=== PATIENT | male | born 1960 | race Caucasian/White ===

== ENCOUNTER → 2017-09-01 12:49 | Outpatient (REF) | payer MEDICAID, SELFPAY ==
[2017-09-01 15:08] LABS: Basophils % 0.4 % (0.1-2.0); Eosinophils # 0.2 K/mm3 (0.0-0.4); Eosinophils % 2.7 % (0.1-12.0); Hematocrit 43.6 % (42.0-52.0); Hemoglobin 14.1 g/dL (14.1-18.0); Lymphocytes % 13.2 K/mm3 (10-50); Mean Corpuscular HGB Conc 32.4 g/dL (31.8-35.4); Mean Corpuscular Hemoglobin 30.5 pg (27.0-31.2); Mean Corpuscular Volume 94.2 fl (80-94); Monocytes # 0.5 K/mm3 (0.1-1.0); Monocytes % 6.5 % (1.7-9.3); Neutrophils # 5.7 K/mm3 (1.8-7.8); Neutrophils % 77.3 % (37.0-80.0); Platelet Count 209 K/mm3 (142-424); Red Blood Count 4.63 M/mm3 (4.60-6.20); Red Cell Distribution Width 12.8 % (11.5-17.5); White Blood Count 7.4 K/mm3 (4.8-10.8)
[2017-09-01 16:01] LABS: Alanine Aminotransferase 41 U/L (12-78); Albumin Level 3.9 gm/dL (3.4-5.0); Albumin/Globulin Ratio 1.2 (1.1-1.8); Alkaline Phosphatase 110 U/L (46-116); Anion Gap 11.3 mEq/L (5-15); Aspartate Amino Transferase 16 U/L (15-37); Bilirubin,Total 0.3 mg/dL (0.2-1.0); Blood Urea Nitrogen 19 mg/dL (7-18); Calcium 9.1 mg/dL (8.5-10.1); Carbon Dioxide 31 mmol/L (21.0-32.0); Chloride 105 mmol/L (98-107); Chol/HDL Ratio 2.1 (1-3.5); Cholesterol 90 mg/dL (140-200); Creatinine,Serum 1.02 mg/dL (0.70-1.30); Estimated Glomerular Filt Rate 76 ml/min (>60); GFR (African American) 91 ML/MIN (>60); Globulin 3.2 gm/dl (1.3-3.2); Glucose 83 mg/dL (74-106); HDL Cholesterol 43 mg/dL (27-67); LDL Cholesterol 34 mg/dL (0-130); Potassium 5.3 mmoL/L (3.5-5.1); Sodium 142 mmol/L (136-145); T4 (Thyroxine) 8.6 ug/dl (4.7-13.3); Thyroid Stimulating Hormone 1.11 uIU/ml (0.358-3.740); Total Protein,Serum 7.1 gm/dL (6.4-8.2); Triglycerides 66 mg/dL (30-200); VLDL Cholesterol 13 mg/dL (0-40)
[2017-09-03 15:33] LABS: PSA, Free 0.52 ng/mL; Prostate Specific Ag 2.4 ng/mL (0.0-4.0); Vitamin D 25 Hydroxy 41.2 ng/mL (30.0-100.0)
[2017-09-06 03:32] LABS: Levetiracetam (Keppra) 14.6 ug/mL (10.0-40.0)
== END ==
LOC: LAB 12:49
PROVIDERS: Visit Provider Physician Assistant
DX: G40.909 Epilepsy, unspecified, not intractable, without status epilepticus (principal); E78.5 Hyperlipidemia, unspecified; Z86.73 Personal history of transient ischemic attack (TIA), and cerebral infarction without residual deficits; F17.200 Nicotine dependence, unspecified, uncomplicated
CPT/HCPCS: 80053; 80061; 80177; 82652; 84153; 84154; 84436; 84443; 85025

== ENCOUNTER → 2018-07-12 19:51 | Outpatient (CLI) | payer MEDICARE, MEDICAID, SELFPAY ==
[2018-07-12 20:21] LABS: Basophils % 0.2 % (0.1-2.0); Eosinophils # 0.2 K/mm3 (0.0-0.4); Eosinophils % 1.9 % (0.1-12.0); Hemoglobin 13.4 g/dL (14.1-18.0); Lymphocytes # 1.2 K/mm3 (0.7-4.5); Lymphocytes % 13.8 % (10-50); Mean Corpuscular HGB Conc 32.6 g/dL (31.8-35.4); Mean Corpuscular Volume 92.1 fl (80-94); Mean Platelet Volume 7.7 fl (7.4-10.4); Monocytes # 0.6 K/mm3 (0.1-1.0); Monocytes % 6.7 % (1.7-9.3); Neutrophils # 6.6 K/mm3 (1.8-7.8); Neutrophils % 77.4 % (37.0-80.0); Platelet Count 216 K/mm3 (142-424); Red Blood Count 4.45 M/mm3 (4.60-6.20); White Blood Count 8.5 K/mm3 (4.8-10.8)
[2018-07-12 20:43] LABS: Alanine Aminotransferase 27 U/L (12-78); Albumin Level 3.9 gm/dL (3.4-5.0); Albumin/Globulin Ratio 1.1 (1.1-1.8); Alkaline Phosphatase 103 U/L (46-116); Anion Gap 14.2 mEq/L (5-15); Aspartate Amino Transferase 9 U/L (15-37); Bilirubin,Total 0.4 mg/dL (0.2-1.0); Blood Urea Nitrogen 27 mg/dL (7-18); Calcium 9.3 mg/dL (8.5-10.1); Carbon Dioxide 29 mmol/L (21.0-32.0); Chloride 103 mmol/L (98-107); Cholesterol 104 mg/dL (140-200); Creatinine,Serum 1.12 mg/dL (0.70-1.30); Estimated Glomerular Filt Rate 68 ml/min (>60); GFR (African American) 82 ML/MIN (>60); Globulin 3.4 gm/dl (1.3-3.2); Glucose 89 mg/dL (74-106); HDL Cholesterol 52 mg/dL (27-67); LDL Cholesterol 38 mg/dL (0-130); Potassium 4.2 mmoL/L (3.5-5.1); Sodium 142 mmol/L (136-145); T4 (Thyroxine) 8.1 ug/dl (4.7-13.3); Thyroid Stimulating Hormone 1.17 uIU/ml (0.358-3.740); Total Protein,Serum 7.3 gm/dL (6.4-8.2); Triglycerides 70 mg/dL (30-200); VLDL Cholesterol 14 mg/dL (0-40)
[2018-07-14 08:14] LABS: Prostate Specific Ag 2.7 ng/mL (0.0-4.0)
[2018-07-14 13:40] LABS: Vitamin D 25 Hydroxy 46.6 ng/mL (30.0-100.0)
== END ==
PROVIDERS: Visit Provider Physician Assistant
DX: G40.909 Epilepsy, unspecified, not intractable, without status epilepticus (principal); I10 Essential (primary) hypertension
CPT/HCPCS: 80053; 80061; 82652; 84153; 84154; 84436; 84443; 85025

== ENCOUNTER → 2018-07-19 10:24 | Outpatient (CLI) | payer MEDICARE, MEDICAID, SELFPAY ==
--- NOTE | 2018-07-19 10:32 | XR_ITS ---
XR chest 2V HISTORY: Left-sided chest pain with shortness of air and low O2, emphysema COPD, smoker ITS.REASON: Lung pain ORDERING PHYSICIAN: Jani Kebede PATIENT AGE: 57 years COMPARISON: None FINDINGS: There is normal heart size. There is hyperinflation with attenuation of the peripheral pulmonary vessels consistent with COPD. No lobar consolidation or collapse is evident. There are atelectatic or fibrotic changes in the left lung base. Tubular density is noted in the right suprahilar region probably due to overlapping vessel. Coarse calcification involves intramedullary region of the proximal humeral shaft on the right consistent with a bone infarction. IMPRESSION: COPD, no acute finding
== END ==
PROVIDERS: PCP Emergency Medicine; Visit Provider Nurse Practitioner Family
DX: R07.1 Chest pain on breathing (principal)
CPT/HCPCS: 71046

== ENCOUNTER → 2018-07-25 13:49 | Outpatient (CLI) | payer MEDICARE, MEDICAID, SELFPAY | PROVIDERS: PCP Emergency Medicine; Visit Provider Emergency Medicine | DX: J44.9 Chronic obstructive pulmonary disease, unspecified (principal) | CPT/HCPCS: 94060 ==

== ENCOUNTER → 2019-02-07 17:17 | Outpatient (CLI) | payer MEDICARE, SELFPAY ==
[2019-02-07 19:22] LABS: Basophils % 0.2 % (0.1-2.0); Eosinophils # 0.2 K/mm3 (0.0-0.4); Eosinophils % 2.6 % (0.1-12.0); Hematocrit 42.1 % (42.0-52.0); Hemoglobin 13.8 g/dL (14.1-18.0); Lymphocytes # 0.8 K/mm3 (0.7-4.5); Lymphocytes % 11.8 % (10-50); Mean Corpuscular HGB Conc 32.8 g/dL (31.8-35.4); Mean Corpuscular Hemoglobin 30.3 pg (27.0-31.2); Mean Corpuscular Volume 92.5 fl (80-94); Monocytes # 0.5 K/mm3 (0.1-1.0); Monocytes % 7.8 % (1.7-9.3); Neutrophils # 5.1 K/mm3 (1.8-7.8); Neutrophils % 77.6 % (37.0-80.0); Platelet Count 230 K/mm3 (142-424); Red Blood Count 4.55 M/mm3 (4.60-6.20); Red Cell Distribution Width 12.8 % (11.5-17.5); White Blood Count 6.5 K/mm3 (4.8-10.8)
[2019-02-07 20:05] LABS: Alanine Aminotransferase 30 U/L (12-78); Albumin/Globulin Ratio 1.3 (1.1-1.8); Alkaline Phosphatase 98 U/L (46-116); Anion Gap 13.1 mEq/L (5-15); Aspartate Amino Transferase 14 U/L (15-37); Bilirubin,Total 0.5 mg/dL (0.2-1.0); Blood Urea Nitrogen 21 mg/dL (7-18); Calcium 9.3 mg/dL (8.5-10.1); Carbon Dioxide 30 mmol/L (21.0-32.0); Chloride 105 mmol/L (98-107); Cholesterol 100 mg/dL (140-200); Creatinine,Serum 1.17 mg/dL (0.70-1.30); Estimated Glomerular Filt Rate 64 ml/min (>60); GFR (African American) 77 ML/MIN (>60); Globulin 3.2 gm/dl (1.3-3.2); Glucose 83 mg/dL (74-106); HDL Cholesterol 49 mg/dL (27-67); LDL Cholesterol 37 mg/dL (0-130); Potassium 4.1 mmoL/L (3.5-5.1); Sodium 144 mmol/L (136-145); T4 (Thyroxine) 9.8 ug/dl (4.7-13.3); Total Protein,Serum 7.2 gm/dL (6.4-8.2); Triglycerides 70 mg/dL (30-200); VLDL Cholesterol 14 mg/dL (0-40)
[2019-02-10 09:42] LABS: Vitamin D 25 Hydroxy 40.5 ng/mL (30.0-100.0)
[2019-02-10 09:46] LABS: Levetiracetam (Keppra) 15.8 ug/mL (10.0-40.0)
== END ==
PROVIDERS: Visit Provider Physician Assistant
DX: I10 Essential (primary) hypertension (principal); E78.5 Hyperlipidemia, unspecified; G40.909 Epilepsy, unspecified, not intractable, without status epilepticus
CPT/HCPCS: 80053; 80061; 80177; 82652; 84436; 84443; 85025

== ENCOUNTER 2019-06-13 06:22 | Inpatient (IN) ==
[2019-06-13 06:54] LABS: Eosinophils % 0.1 % (0.1-12.0); Hematocrit 41.8 % (42.0-52.0); Hemoglobin 14.2 g/dL (14.1-18.0); Lymphocytes # 0.5 K/mm3 (0.7-4.5); Lymphocytes % 2.8 % (10-50); Mean Corpuscular HGB Conc 34.1 g/dL (31.8-35.4); Mean Platelet Volume 7.2 fl (7.4-10.4); Monocytes # 0.9 K/mm3 (0.1-1.0); Neutrophils # 15.8 K/mm3 (1.8-7.8); Platelet Count 200 K/mm3 (142-424); Red Blood Count 4.69 M/mm3 (4.60-6.20); Red Cell Distribution Width 12.7 % (11.5-17.5); White Blood Count 17.2 K/mm3 (4.8-10.8)
[2019-06-13 07:29] LABS: Albumin Level 4.1 gm/dL (3.4-5.0); Albumin/Globulin Ratio 1.1 (1.1-1.8); Anion Gap 15.3 mEq/L (5-15); Bilirubin,Total 0.7 mg/dL (0.2-1.0); C-Reactive Protein 1.2 mg/dL (0.0-0.9); Globulin 3.6 gm/dl (1.3-3.2); Total Protein,Serum 7.7 gm/dL (6.4-8.2)
--- NOTE | 2019-06-13 07:33 | Emergency Department Note ---
ED Disposition Clinical Impression: Tobacco dependence syndrome, H/O: CVA (cerebrovascular accident), Anxiety, SIRS (systemic inflammatory response syndrome) Hip fracture Qualifiers: Encounter type: initial encounter Fracture type: closed Laterality: left Qualified Code(s): S72.002A - Fracture of unspecified part of neck of left femur, initial encounter for closed fracture Hyperlipidemia Qualifiers: Hyperlipidemia type: unspecified Qualified Code(s): E78.5 - Hyperlipidemia, unspecified COPD (chronic obstructive pulmonary disease) Qualifiers: COPD type: unspecified COPD Qualified Code(s): J44.9 - Chronic obstructive pulmonary disease, unspecified Epilepsy Qualifiers: Epilepsy type: unspecified Intractability: not intractable Status epilepticus: without status epilepticus Qualified Code(s): G40.909 - Epilepsy, unspecified, not intractable, without status epilepticus Disposition: Admitted As Inpatient Condition on Discharge: [facility] Critical Care Critical Care Time: No Attestation: On 06/13/19, the high probability of a clinically significant, sudden or life threatening deterioration of the following system(s) required my full and direct attention, intervention and personal management. The time I documented below is in addition to time spent performing reported procedures but includes the following listed in this critical care notation. Medical Decision Making - Medical Records Medical records reviewed: Yes: I reviewed the patient's medical records. - Jose Inquiry Pt receiving controlled substance: No Vital Signs: 06/13/19 06:23 06/13/19 07:42 Temperature 100 F H Temperature Source Oral Pulse Rate [Right Brachial] 95 H 89 Respiratory Rate 20 18 Blood Pressure [Right Arm] 151/84 H 153/95 H Blood Pressure Mean [Right Arm] 106 114 Blood Pressure Source [Right Arm] Automatic Cuff Blood Pressure Position [Right Arm] Supine 02 Sat by Pulse Oximetry 92 L 90 L Oxygen Delivery Method Nasal Cannula Nasal Cannula Oxygen Flow Rate (LPM) 3 2 - Lab Data Lab results reviewed: Yes: I reviewed the patient's lab results. Lab Results 06/13/19 06:30: WBC 17.2 H, RBC 4.69, Hgb 14.2, Hct 41.8 L, MCV 89.0, MCH 30.3, MCHC 34.1, RDW 12.7, Plt Count 200, MPV 7.2 L, Neut % (Auto) 92.0 H, Lymph % (Auto) 2.8 L, [place] % (Auto) 5.0, Eos % (Auto) 0.1, Baso % (Auto) 0.0 L, Neut # (Auto) 15.8 H, Lymph # (Auto) 0.5 L, [place] # (Auto) 0.9, Eos # (Auto) 0.0, Baso # (Auto) 0.0, Total Counted 100, Neutrophils % (Manual) 93 H, Lymphocytes % (Manual) 1 L, Monocytes % (Manual) 6, Platelet Estimate Normal, RBC Morphology Normal, ESR 12 06/13/19 06:30: Sodium 138, Potassium 4.3, Chloride 101, Carbon Dioxide 26, Anion Gap 15.3 H, BUN 21 H, Creatinine 1.27, Estimated Creat Clear 81, Estimated GFR 58 L, Est GFR ( Amer) 70, Glucose 126 H, Calcium 9.0, Total Bilirubin 0.7, AST 20, ALT 39, Alkaline Phosphatase 110, C-Reactive Protein 1.2 H, Total Protein 7.7, Albumin 4.1, Globulin 3.6 H, Albumin/Globulin Ratio 1.1 06/13/19 06:30: Lactate 1.1 06/13/19 07:14: Influenza Type A Ag Negative, Influenza Type B Ag Negative 06/13/19 07:30: Urine Color Yellow, Urine Appearance Sl cloudy, Urine pH 6.0, Ur Specific [place] 1.015, Urine Protein Negative, Urine Glucose (UA) Negative, Urine Ketones Negative, Urine Blood Negative, Urine Nitrate Negative, Urine Bilirubin Negative, Urine Urobilinogen 0.2, Ur Leukocyte Esterase Negative, Urine RBC None, Urine WBC Occasional, Ur Squamous Epith Cells None, Urine Bact eria Trace 06/13/19 07:42: Specimen Source Right radial, ABG pH 7.43, ABG pCO2 33.6 L, ABG pO2 51.8 L, ABG HCO3 21.9 L, ABG Total CO2 22.9 L, ABG O2 Saturation 87 L*, ABG Base Excess -2.4, Tyrell Test acceptable Result diagrams: 06/13/19 06:30 06/13/19 06:30 Orders (Tests/Meds): ED MEDICATIONS Discontinued Medications Generic Name Dose Route Start Last Admin Trade Name Freq PRN Reason Stop Dose Admin Ketorolac Tromethamine 30 mg 06/13/19 06:39 06/13/19 06:43 Toradol 30mg/Ml Vial IV 06/13/19 06:40 30 mg ONCE ONE Administration ORDERS Category Date Time Status XR chest AP Stat Exams 06/13/19 06:27 Taken XR hip LT 2-3V w/pelvis Stat Exams 06/13/19 06:27 Taken Blood Culture Stat Micro 06/13/19 06:30 Received 12-lead EKG Request [ECG Request by /Hany] Stat Y 06/13/19 07:32 Ordered - Radiology Data #1 Image(s): Chest, Pelvis, Hip Image Reviewed: Yes I reviewed the patient's radiology image Preliminary Findings: Abnormal (copd and hip fx ) - ECG Data Tracing #1 Normal Sinus Rhythm: Yes Ischemic changes: non-specific ST-T wave changes - Physician Consults Physician Consulted: kelsey Reason -: Pt condition Additional Consult: andres Reason -: Pt condition Fall HPI - General Chief Complaint: Fall Stated Complaint: fall Time Seen by Provider: 06/13/19 06:30 Mode of Arrival: EMS Source of Information: Patient, EMS, Medical Record Limitations: No Limitations Description of Symptoms (Recalled from ER Triage Doc. by RN): PATIENT PRESENTS TO TRAUMA 4 VIA EMS FROM HOME C/O L HIP PAIN AFTER FALLING THIS AM. STATES HE WAS GETTING UP TO USE THE BATHROOM WHEN HE TRIPPED AND LANDED ON HIS LEFT SIDE. NO OBVIOUS BRUISING OR DEFORMITY NOTED. PULSE WNL. PATIENT RATES PAIN 10/10. DENIES LOC. EMS REPORTS RA SATS UPON ARRIVAL WAS 85%. REPORTS ADMINISTERING OXYGEN VIA NC AT 2LPM BRINGING O2 SATS UP TO 90'S. UPON ARRIVAL TO ED, O2 SATS REMAINED IN 80'S. O2 TURNED UP TO 3LPM BRINGING SATS UP TO 92%. PATIENT DENIES HISTORY OF HOME O2 USE. - History of Present Illness HPI Narrative: trip type injury this am with lt hip pain - pt has hx of copd and prev cva - he does not use o2 at home - MD complaint: fall Onset (ago): hour(s) Fall from: standing Fall witnessed: no Place fall occurred: home Loss of consciousness: none Prolonged down time: no Symptoms prior to fall: none Context: tripped/slipped Location of injury: pelvis Location of injury - extremities: Left: thigh Severity: moderate Associated symptoms (after fall): denies - Related Data Home Medications Medication Instructions Recorded Confirmed Amlodipine Besylate [Amlodipine 10 mg PO DAILY 06/13/19 06/13/19 10mg Tab] Atorvastatin Calcium [Atorvastatin 40 mg PO DAILY 06/13/19 06/13/19 40mg Tab] Budesonide/Formoterol Fumarate See Rx Instructions .ROUTE .COMPLEX 06/13/19 06/13/19 [Symbicort] Buspirone HCl [Buspar 10mg 10 mg PO TID 06/13/19 06/13/19 tablet] Clopidogrel Bisulfate [Plavix 75mg 75 mg PO DAILY 06/13/19 06/13/19 Tab] Lacosamide [Vimpat] 50 mg PO BID 06/13/19 06/13/19 Lacosamide [Vimpat] 200 mg PO BID 06/13/19 06/13/19 Trazodone HCl 50 mg PO HS 06/13/19 06/13/19 Umeclidinium [place] [Incruse 1 inh INHALATION Q24H 06/13/19 06/13/19 Ellipta] levETIRAcetam [Levetiracetam] 500 mg PO BID 06/13/19 06/13/19 Previous Rx's Medication Instructions Recorded albuterol sulfate 90 mcg/actuation 2 puff INHALATION Q4-6H PRN 30 01/02/19 aerosol inhaler Days #6.7 g Allergies Allergy/AdvReac Type Severity Reaction Status Date / Time No Known Allergies Allergy Verified 02/07/19 11:22 [facility] History - Hepatitis A Screen Drug use history?: No High risk sexual behaviors?: No History of sexually transmitted infection?: No Currently employed?: No Childcare worker?: No Do you have indoor plumbing?: Yes Do you have electricity?: Yes Attestation statement:: This patient has been screened for Hepatitis A risk factors. I have reviewed the patient's past medical history: Yes Medical History: Reports:: Anxiety, Cerebrovascular Accident, Hyperlipidemia, Hypertension, Myocardial Infarction Comment: hep A Other Surgeries: Yes: Other Amputation: No Fractures: No Comment: Brain surgery to remove a blood clot, Stent was placed. - Social History Smoking Status: Current every day smoker Tobacco Type: cigarettes # Packs/Day (cigarettes): 1 Alcohol Intake: never Substance Use Type: denies use Occupational Status: disabled Housing: house Household Members: none - Psychiatric History Pschychiatric History:: Reports:: Anxiety Family Hx:: No significant family history ROS Obtained: Yes All systems reviewed & no additional complaints - Constitutional Constitutional: Denies fever(s) - Eyes Eyes: Denies change in vision - ENT Ears, Nose, Mouth, and Throat: Denies sore throat - Cardiovascular Cardiovascular: Denies chest pain - Respiratory Respiratory: No cough - Gastrointestinal Gastrointestingal: Denies: abdominal pain - Genitourinary Male Genitourinary: Denies hematuria - Musculoskeletal Musculoskeletal: Reports as per HPI, Reports joint pain, Reports limited range of motion - Integumentary/Breasts Skin/Breast: Denies rash - Neurologic Neurologic: Denies abnormal speech, Denies headache(s), Denies seizure-like activity Physical Exam - General General appearance: alert, in no apparent distress - Head Head exam: normocephalic - Eye Eye exam: Present: PERRL, EOMI. Absent: scleral icterus - ENT ENT exam: Present: mucous membranes dry - Neck Neck exam: Present: trachea midline - Respiratory Respiratory exam: Present: wheezes. Absent: respiratory distress - Cardiovascular Cardiovascular exam: Present: regular rate, systolic murmur, +S4 - Abdominal Exam Abdominal exam: Present: soft. Absent: tenderness - Expanded Lower Extremity Exam Left Hip/Pelvis exam: Present: pelvis stable, shortening of leg, pain on hip/pelvis palpation - Neurological Exam Neurological exam: Present: alert, oriented X3, CN II-XII intact. Absent: motor sensory deficit - Psychiatric Psychiatric exam: Present: normal affect - Skin Skin exam: Absent: rash
[2019-06-13 07:43] LABS: Microscopic, Urine URINE MICROSCOPIC (MICROSCOPIC)
[2019-06-13 07:48] LABS: Appearance,Urine SL CLOUDY (Clear); Bilirubin,Urine Negative (Negative); Blood, Urine Negative (Negative); Color,Urine YELLOW (Yellow); Glucose,Urine (UA) Negative (Negative); Ketones,Urine Negative (Negative); Leukocyte Esterase,Urine Negative (Negative); Protein,Urine Negative (Negative); Specific Gravity, Urine 1.015 (1.005-1.030); Urobilinogen,Urine 0.2 EU/dl (0.2)
[2019-06-13 07:58] LABS: Lymphocytes % 1 % (10-50); Monocytes % 6 % (2-9); Neutrophils % 93 % (42-76); RBC Morphology Normal; Total Cells Counted 100
[2019-06-13 08:04] LABS: Erythrocyte Sedimentation Rate 12 mm/hr (0-20)
[2019-06-13 08:13] LABS: ABG Base Excess -2.4 mmol/L (-2.4-2.3); ABG HCO3 21.9 mmhg (22.0-26.0); ABG Oxygen Saturation 87 % (90-100); ABG PCO2 33.6 mmhg (35.0-45.0); ABG PH 7.43 mmol/L (7.35-7.45); ABG PO2 51.8 mmhg (80-100); ABG TCO2 22.9 mmhg (23-27)
[2019-06-13 08:14] LABS: Bacteria,Urine Trace /lpf; WBC,Urine Occasional #/hpf (0-3)
[2019-06-13 08:17] LABS: Allen's Test acceptable
--- NOTE | 2019-06-13 08:49 | Pharmacy Consult Notes ---
[facility] Pharmacy VTE Monitoring - Patient Demographics Admission date: 06/13/19 Report Date: 06/13/19 Time: 08:49 Allergies/Adverse Reactions: Patient Allergies No Known Allergies Allergy (Verified 02/07/19 11:22) Height: 1.91 m Weight: 90.718 kg Patient Problems: Current Active Problems Hip fracture (Acute) SIRS (systemic inflammatory response syndrome) (Acute) COPD (chronic obstructive pulmonary disease) (Chronic) Epilepsy (Chronic) Anxiety (Chronic) H/O: CVA (cerebrovascular accident) (Chronic) Hyperlipidemia (Chronic) Tobacco dependence syndrome (Chronic) - VTE Risk Labs: VTE Related Lab Results Hgb 14.2 g/dL (14.1-18.0) 06/13/19 06:30 Hct 41.8 % (42.0-52.0) L 06/13/19 06:30 Plt Count 200 K/mm3 (142-424) 06/13/19 06:30 BUN 21 mg/dL (7-18) H 06/13/19 06:30 Creatinine 1.27 mg/dL (0.70-1.30) 06/13/19 06:30 Estimated Creat Clear 81 mL/min (50-200) 06/13/19 06:30 Clinical Trial Participant: No - Prophylaxis VTE Prophylaxis Ordered?: Yes Types of VTE Prophylaxis: TEDS Knee High
--- NOTE | 2019-06-13 09:50 | History & Physical Report ---
*Admission Date: 06/13/19 *Chief complaint: fall *History of present illness: this wm fell this am with lt hip injury - pt with trip type injury and no sz or chest pain and denied syncope - he reports at baseline - he has copd and tob use but no home o2 and he has no sz for 6 yrs - he reports no heart disease and has ok echo in ed and ekg nonacute - discussed with dr cole and jane for surg - pt admitted for ortho consult - [facility] History I have reviewed the patient's past medical history: Yes Medical History: Reports:: Anxiety, Cerebrovascular Accident, Hyperlipidemia, Hypertension, Myocardial Infarction *Have you ever received a pneumonia vaccine?: No *Have you received a flu vaccine this season?: Yes Other Surgeries: Yes: Other Amputation: No Fractures: No - *Social History Smoking Status: Current every day smoker Tobacco Type: cigarettes # Packs/Day (cigarettes): 1 Alcohol Intake: never Substance Use Type: denies use *Occupational Status:: disabled Housing: house Household Members: none *Travel in the last 8 weeks: None - Psychiatric History Pschychiatric History:: Reports:: Anxiety Family Hx:: No significant family history Review of Systems - Review of Systems Review of systems:: pertinent systems reviewed and negative unless documented below - Constitutional Denies fever(s) - Eyes Denies change in vision - ENT Denies sore throat - *Cardiovascular Reports shortness of breath, Denies chest pain at rest - *Respiratory Denies cough - *Gastrointestinal Denies abdominal pain - *Genitourinary Denies blood in urine - *Musculoskeletal Reports joint pain, Reports limited joint movement - Integumentary/Breasts Denies rash - *Neurologic Denies abnormal speech, Denies headache(s), Denies seizure-like activity - Psychiatric Denies confusion Meds Home Medications Medication Instructions Recorded Confirmed Type albuterol sulfate 90 mcg/actuation 2 puff INHALATION Q4-6H PRN 30 01/02/19 06/13/19 Rx aerosol inhaler Days #6.7 g Amlodipine Besylate [Amlodipine 10 mg PO DAILY 06/13/19 06/13/19 History 10mg Tab] Atorvastatin Calcium [Atorvastatin 40 mg PO HS 06/13/19 06/13/19 History 40mg Tab] Budesonide/Formoterol Fumarate 2 puffs IH BID 06/13/19 06/13/19 History [Symbicort] Buspirone HCl [Buspar 10mg 10 mg PO TID 06/13/19 06/13/19 History tablet] Clopidogrel Bisulfate [Plavix 75mg 75 mg PO DAILY 06/13/19 06/13/19 History Tab] Lacosamide [Vimpat] 50 mg PO BID 06/13/19 06/13/19 History Lacosamide [Vimpat] 200 mg PO BID 06/13/19 06/13/19 History Trazodone HCl 50 mg PO HS 06/13/19 06/13/19 History Umeclidinium [place] [Incruse 1 inh INHALATION DAILY 06/13/19 06/13/19 History Ellipta] levETIRAcetam [Levetiracetam] 500 mg PO BID 06/13/19 06/13/19 History Allergies Allergy/AdvReac Type Severity Reaction Status Date / Time No Known Allergies Allergy Verified 02/07/19 11:22 Exam Vital signs and Labs for Last 24 Hours: Temp Pulse Resp BP Pulse Ox 98.9 F 99 H 18 147/83 H 90 L 06/13/19 09:10 06/13/19 09:10 06/13/19 09:10 06/13/19 09:10 06/13/19 09:07 Laboratory Results - last 24 hr 06/13/19 06:30: WBC 17.2 H, RBC 4.69, Hgb 14.2, Hct 41.8 L, MCV 89.0, MCH 30.3, MCHC 34.1, RDW 12.7, Plt Count 200, MPV 7.2 L, Neut % (Auto) 92.0 H, Lymph % (Auto) 2.8 L, [place] % (Auto) 5.0, Eos % (Auto) 0.1, Baso % (Auto) 0.0 L, Neut # (Auto) 15.8 H, Lymph # (Auto) 0.5 L, [place] # (Auto) 0.9, Eos # (Auto) 0.0, Baso # (Auto) 0.0, Total Counted 100, Neutrophils % (Manual) 93 H, Lymphocytes % (Manu al) 1 L, Monocytes % (Manual) 6, Platelet Estimate Normal, RBC Morphology Normal, ESR 12 06/13/19 06:30: Sodium 138, Potassium 4.3, Chloride 101, Carbon Dioxide 26, Anion Gap 15.3 H, BUN 21 H, Creatinine 1.27, Estimated Creat Clear 81, Estimated GFR 58 L, Est GFR ( Amer) 70, Glucose 126 H, Calcium 9.0, Total Bilirubin 0.7, AST 20, ALT 39, Alkaline Phosphatase 110, C-Reactive Protein 1.2 H, Total Protein 7.7, Albumin 4.1, Globulin 3.6 H, Albumin/Globulin Ratio 1.1 06/13/19 06:30: Lactate 1.1 06/13/19 06:30: Troponin I 0.03 06/13/19 07:14: Influenza Type A Ag Negative, Influenza Type B Ag Negative 06/13/19 07:30: Urine Color Yellow, Urine Appearance Sl cloudy, Urine pH 6.0, Ur Specific [place] 1.015, Urine Protein Negative, Urine Glucose (UA) Negative, Urine Ketones Negative, Urine Blood Negative, Urine Nitrate Negative, Urine Bilirubin Negative, Urine Urobilinogen 0.2, Ur Leukocyte Esterase Negative, Urine RBC None, Urine WBC Occasional, Ur Squamous Epith Cells None, Urine Bacteria Trace 06/13/19 07:42: Specimen Source Right radial, ABG pH 7.43, ABG pCO2 33.6 L, ABG pO2 51.8 L, ABG HCO3 21.9 L, ABG Total CO2 22.9 L, ABG O2 Saturation 87 L*, ABG Base Excess -2.4, Tyrell Test acceptable I & O for Last 24 hours: Intake & Output 06/10/19 06/11/19 06/12/19 06/13/19 11:59 11:59 11:59 11:59 Weight 200 lb - Constitutional no acute distress - *Routine HEENT Exam Head: Present: normocephalic Eye: Present: EOMI, PERRL ENT: Present: mucous membranes dry - *Routine Neck Exam Present: supple. Absent: JVD - *Routine Respiratory Exam Present: decreased breath sounds, wheezes - *Routine Cardiovascular Exam Present: RRR, murmur, S4 - *Routine Abdominal Exam Present: soft - *Routine Extremities Exam Comments: tender lt hip with dec rom -neurovascular ok - *Routine Skin Exam Present: intact - *Routine Neurological Exam Present: alert, oriented X3, CN II-XII intact - Routine Psychiatric Exam Present: normal affect Assessment and Plan (1) Hip fracture Current visit: Yes Status: Acute Qualifiers: Encounter type: initial encounter Fracture type: closed Laterality: left Qualified Code(s): S72.002A - Fracture of unspecified part of neck of left femur, initial encounter for closed fracture Category: Medical Code(s): S72.009A - Fracture of unspecified part of neck of unspecified femur, initial encounter for closed fracture (2) SIRS (systemic inflammatory response syndrome) Current visit: Yes Status: Acute Category: Medical Code(s): R65.10 - Systemic inflammatory response syndrome (SIRS) of non-infectious origin without acute organ dysfunction (3) H/O: CVA (cerebrovascular accident) Current visit: No Status: Chronic Category: Medical Code(s): Z86.73 - Personal history of transient ischemic attack (TIA), and cerebral infarction without residual deficits (4) COPD (chronic obstructive pulmonary disease) Current visit: Yes Status: Chronic Qualifiers: COPD type: unspecified COPD Qualified Code(s): J44.9 - Chronic obstructive pulmonary disease, unspecified Category: Medical Code(s): J44.9 - Chronic obstructive pulmonary disease, unspecified (5) Hypertension Current visit: No Status: Chronic Qualifiers: Hypertension type: essential hypertension Qualified Code(s): I10 - Essential (primary) hypertension Category: Medical Code(s): I10 - Essential (primary) hypertension (6) Epilepsy Current visit: Yes Status: Chronic Qualifiers: Epilepsy type: unspecified Intractability: not intractable Status epilepticus: without status epilepticus Qualified Code(s): G40.909 - Epilepsy, unspecified, not intractable, without status epilepticus Category: Medical Code(s): G40.909 - Epilepsy, unspecified, not intractable, without status epilepticus (7) Anxiety Current visit: Yes Status: Chronic Category: Medical Code(s): F41.9 - Anxiety disorder, unspecified (8) H/O: CVA (cerebrovascular accident) Current visit: Yes Status: Chronic Category: Medical Code(s): Z86.73 - Personal history of transient ischemic attack (TIA), and cerebral infarction without residual deficits
--- NOTE | 2019-06-13 10:27 | Consult Report ---
*Admission Date: 06/13/19 *Reason for consult:: Fracture neck of femur, left hip *History of present illness: Patient is a pleasant 58-year-old male, admitted this morning as an acute inpatient from [facility] ER. Patient is is giving a history of fall while getting out of bed to go to bathroom early this morning. He says he tripped over the end of the bed and landed on his left side. He says he developed severe pain in his left hip and could not get up and walk after the fall. He is brought to the ER where evaluation including x-rays showed a displaced left femoral neck fracture. At the moment patient says he has minimal discomfort at rest and the LEFT hip pain is worse with movements of the leg. He denies any other injuries including head injury, neck injury, back injury, chest or abdominal injury or upper extremity injury. No numbness or tingling. No history of any dizziness, headache, chest or neck pain. Patient lives by himself and usually walks independently without any walking aids. However, he is giving a history of worsening left hip pain and stiffness for the last 2 to 3 years. He denies loss of consciousness, chest pain and shortness of breath. He has history of hypertension, hyperlipidemia, myocardial infarction, COPD, chronic tobacco abuse and CVA without residual deficits. Patient is on long- term Plavix. Review of Systems - Review of Systems Review of systems:: pertinent systems reviewed and negative unless documented below - Constitutional Denies fever(s), Denies headache(s) - Eyes Denies change in vision, Denies double vision - ENT Denies bleeding gums, Denies dizziness, Denies neck pain, Denies sore throat - *Cardiovascular Reports shortness of breath, Reports shortness of breath with activity, Denies chest pain - *Respiratory Denies chest congestion, Denies cough, Denies shortness of breath with activity - *Gastrointestinal Denies abdominal pain, Denies change in bowel habits - *Genitourinary Denies difficulty urinating - *Musculoskeletal Reports abnormal walking, Reports joint pain, Reports limited joint movement - *Neurologic Denies abnormal speech, Denies confusion, Denies headache(s), Denies seizure- like activity - Psychiatric Denies confusion - Hematologic/Lymphatic Denies easy bleeding [facility] History I have reviewed the patient's past medical history: Yes Medical History: Reports:: Anxiety, Cerebrovascular Accident, Hyperlipidemia, Hypertension, Myocardial Infarction Denies:: Cancer, Diabetes Mellitus Type 1, Diabetes Mellitus Type 2, MRSA *Have you ever received a pneumonia vaccine?: No *Have you received a flu vaccine this season?: Yes Other Medical History: Reports: Anemia Other Surgeries: Yes: Other Amputation: No Fractures: No - *Social History Educational Level: Completed College Smoking Status: Current every day smoker Tobacco Type: cigarettes # Packs/Day (cigarettes): 1 Alcohol Intake: never Substance Use Type: marijuana Last Used Substance: days (ago) *Occupational Status:: disabled Housing: house Household Members: none *Travel in the last 8 weeks: None - Psychiatric History Pschychiatric History:: Reports:: Anxiety Family Hx:: No significant family history Meds Home Medications Medication Instructions Recorded Confirmed Type albuterol sulfate 90 mcg/actuation 2 puff INHALATION Q4-6H PRN 30 01/02/19 06/13/19 Rx aerosol inhaler Days #6.7 g Amlodipine Besylate [Amlodipine 10 mg PO DAILY 06/13/19 06/13/19 History 10mg Tab] Atorvastatin Calcium [Atorvastatin 40 mg PO HS 06/13/19 06/13/19 History 40mg Tab] Budesonide/Formoterol Fumarate 2 puffs IH BID 06/13/19 06/13/19 History [Symbicort] Buspirone HCl [Buspar 10mg 10 mg PO TID 06/13/19 06/13/19 History tablet] Clopidogrel Bisulfate [Plavix 75mg 75 mg PO DAILY 06/13/19 06/13/19 History Tab] Lacosamide [Vimpat] 50 mg PO BID 06/13/19 06/13/19 History Lacosamide [Vimpat] 200 mg PO BID 06/13/19 06/13/19 History Trazodone HCl 50 mg PO HS 06/13/19 06/13/19 History Umeclidinium [place]one [Incruse 1 inh INHALATION DAILY 06/13/19 06/13/19 History Ellipta] levETIRAcetam [Levetiracetam] 500 mg PO BID 06/13/19 06/13/19 History Allergies Allergy/AdvReac Type Severity Reaction Status Date / Time No Known Allergies Allergy Verified 02/07/19 11:22 Exam Vital signs and Labs for Last 24 Hours: Temp Pulse Resp BP Pulse Ox 98.9 F 89 18 158/75 H 88 L 06/13/19 09:39 06/13/19 10:02 06/13/19 09:39 06/13/19 09:39 06/13/19 10:02 Laboratory Results - last 24 hr 06/13/19 06:30: WBC 17.2 H, RBC 4.69, Hgb 14.2, Hct 41.8 L, MCV 89.0, MCH 30.3, MCHC 34.1, RDW 12.7, Plt Count 200, MPV 7.2 L, Neut % (Auto) 92.0 H, Lymph % (Auto) 2.8 L, [place] % (Auto) 5.0, Eos % (Auto) 0.1, Baso % (Auto) 0.0 L, Neut # (Auto) 15.8 H, Lymph # (Auto) 0.5 L, [place] # (Auto) 0.9, Eos # (Auto) 0.0, Baso # (Auto) 0.0, Total Counted 100, Neutrophils % (Manual) 93 H, Lymphocytes % (Manual) 1 L, Monocytes % (Manual) 6, Platelet Estimate Normal, RBC Morphology Normal, ESR 12 06/13/19 06:30: Sodium 138, Potassium 4.3, Chloride 101, Carbon Dioxide 26, Anion Gap 15.3 H, BUN 21 H, Creatinine 1.27, Estimated Creat Clear 81, Estimated GFR 58 L, Est GFR ( Amer) 70, Glucose 126 H, Calcium 9.0, Total Bilirubin 0.7, AST 20, ALT 39, Alkaline Phosphatase 110, C-Reactive Protein 1.2 H, Total Protein 7.7, Albumin 4.1, Globulin 3.6 H, Albumin/Globulin Ratio 1.1 06/13/19 06:30: Lactate 1.1 06/13/19 06:30: Troponin I 0.03 06/13/19 07:14: Influenza Type A Ag Negative, Influenza Type B Ag Negative 06/13/19 07:30: Urine Color Yellow, Urine Appearance Sl cloudy, Urine pH 6.0, Ur Specific [place] 1.015, Urine Protein Negative, Urine Glucose (UA) Negative, Urine Ketones Negative, Urine Blood Negative, Urine Nitrate Negative, Urine Bilirubin Negative, Urine Urobilinogen 0.2, Ur Leukocyte Esterase Negative, Urine RBC None, Urine WBC Occasional, Ur Squamous Epith Cells None, Urine Bacteria Trace 06/13/19 07:42: Specimen Source Right radial, ABG pH 7.43, ABG pCO2 33.6 L, ABG pO2 51.8 L, ABG HCO3 21.9 L, ABG Total CO2 22.9 L, ABG O2 Saturation 87 L*, ABG Base Excess -2.4, [place] Test acceptable 06/13/19 09:15: Troponin I 0.04 I & O for Last 24 hours: Intake & Output 06/10/19 06/11/19 06/12/19 06/13/19 11:59 11:59 11:59 11:59 Weight 193 lb 8 oz - Constitutional no acute distress, average body habitus, cooperative - *Routine HEENT Exam Head: Present: normocephalic, atraumatic Eye: Present: EOMI ENT: Present: mucous membranes moist - *Routine Neck Exam Present: supple, full ROM, trachea midline. Absent: lymphadenopathy - *Routine Respiratory Exam Present: decreased breath sounds, wheezes. Absent: respiratory distress - *Routine Cardiovascular Exam Present: RRR, Normal S1, Normal S2 - *Routine Abdominal Exam Present: soft, normoactive bowel sounds. Absent: organomegaly - *Routine Extremities Exam Comments: On examination of his lower extremities, there is shortening of the LEFT leg and the foot is externally rotated. On examination of the LEFT hip the skin is normal. No rashes or lesions noted. He is tender over the LEFT hip. Any attempted movements of the LEFT hip are painful. Thigh and calf are soft and no ntender. Dorsalis pedis and posterior tibial pulses are palpable 1+ bilaterally. Sensation is grossly intact. He has good range of foot, ankle and toe movements. Diagnostic imaging: X-rays of the pelvis/LEFT hip performed at [facility] reviewed. The x-rays show a displaced intracapsular fracture neck of LEFT femur. No other acute changes noted. There are moderate degenerative burns ges in the hip joint with narrowing of the joint space, misshapen femoral head, periarticular osteophyte formation, subchondral sclerosis and cyst formation. - Routine Back/Spine/Pelvis Exam Back/Spine: Absent: paraspinal tenderness, vertebral tenderness Pelvis: Absent: SI joint tenderness, tenderness of the symphysis pubis, pain with lateral compression of the pelvis - *Routine Skin Exam Present: intact, warm, normal turgor - *Routine Neurological Exam Present: alert, oriented X3, CN II-XII intact Results - Labs Result Diagrams: 06/13/19 06:30 06/13/19 06:30 Labs: Abnormal lab results 06/13/19 06/13/19 06/13/19 Range/Units 06:30 06:30 07:42 WBC 17.2 H (4.8-10.8) K/mm3 Hct 41.8 L (42.0-52.0) % MPV 7.2 L (7.4-10.4) fl Neut % (Auto) 92.0 H (37.0-80.0) % Lymph % (Auto) 2.8 L (10-50) % Baso % (Auto) 0.0 L (0.1-2.0) % Neut # (Auto) 15.8 H (1.8-7.8) K/mm3 Lymph # (Auto) 0.5 L (0.7-4.5) K/mm3 Neutrophils % (Manual) 93 H (42-76) % Lymphocytes % (Manual) 1 L (10-50) % ABG pCO2 33.6 L (35.0-45.0) mmhg ABG pO2 51.8 L (80-100) mmhg ABG HCO3 21.9 L (22.0-26.0) mmhg ABG Total CO2 22.9 L (23-27) mmhg ABG O2 Saturation 87 L* (90-100) % Anion Gap 15.3 H (5-15) mEq/L BUN 21 H (7-18) mg/dL Estimated GFR 58 L (>60) ml/min Glucose 126 H (74-106) mg/dL C-Reactive Protein 1.2 H (0.0-0.9) mg/dL Globulin 3.6 H (1.3-3.2) gm/dl H & H 06/13/19 Range/Units 06:30 Hgb 14.2 (14.1-18.0) g/dL Hct 41.8 L (42.0-52.0) % All other labs normal. Assessment and Plan (1) Hip fracture Current visit: Yes Status: Acute Qualifiers: Encounter type: initial encounter Fracture type: closed Laterality: left Qualified Code(s): S72.002A - Fracture of unspecified part of neck of left femur, initial encounter for closed fracture Category: Medical Code(s): S72.009A - Fracture of unspecified part of neck of unspecified femur, initial encounter for closed fracture (2) SIRS (systemic inflammatory response syndrome) Current visit: Yes Status: Acute Category: Medical Code(s): R65.10 - Systemic inflammatory response syndrome (SIRS) of non-infectious origin without acute organ dysfunction (3) H/O: CVA (cerebrovascular accident) Current visit: No Status: Chronic Category: Medical Code(s): Z86.73 - Personal history of transient ischemic attack (TIA), and cerebral infarction without residual deficits (4) COPD (chronic obstructive pulmonary disease) Current visit: Yes Status: Chronic Qualifiers: COPD type: unspecified COPD Qualified Code(s): J44.9 - Chronic obstructive pulmonary disease, unspecified Category: Medical Code(s): J44.9 - Chronic obstructive pulmonary disease, unspecified (5) Hypertension Current visit: No Status: Chronic Qualifiers: Hypertension type: essential hypertension Qualified Code(s): I10 - Essential (primary) hypertension Category: Medical Code(s): I10 - Essential (primary) hypertension (6) Epilepsy Current visit: Yes Status: Chronic Qualifiers: Epilepsy type: unspecified Intractability: not intractable Status epilepticus: without status epilepticus Qualified Code(s): G40.909 - Epilepsy, unspecified, not intractable, without status epilepticus Category: Medical Code(s): G40.909 - Epilepsy, unspecified, not intractable, without status epilepticus (7) Anxiety Current visit: Yes Status: Chronic Category: Medical Code(s): F41.9 - Anxiety disorder, unspecified (8) H/O: CVA (cerebrovascular accident) Current visit: Yes Status: Chronic Category: Medical Code(s): Z86.73 - Personal history of transient ischemic attack (TIA), and cerebral infarction without residual deficits - Assessment and plan all Dx Assessment and Plan for all problems:: I have reviewed the clinical and x-ray findings with the patient. I have discussed the diagnosis, natural history and management options in detail including both nonsurgical and surgical. In my opinion, surgical remediation is the best option for managing his LEFT hip fracture. Even though patient is only 58 years old he has multiple medical problems and has history of chronic tobacco abuse. He also has pre-existing symptomatic arthritis in his left hip. In this situation, I do not see fracture fixation working and most likely would lead to nonunion; in any case he has arthritic changes in the hip joint and has been symptomatic for the last 2 to 3 years. Given this situation, a total hip arthroplasty would be the best option for his management. I have explained the procedure, risks and benefits, alternatives and the expected postoperative course. I explained to the patient with drawings of the fracture and the proposed surgical procedure. The complications discussed include but are not limited to infection, injury to nerves and blood vessels, DVT and PE, fracture, limb length inequality, dislocation, implant failure, squeaking, loosening, acetabular wear, osteolysis, periprosthetic femur fracture, heterotopic ossifi cation, abductor weakness and a limp, incomplete relief of pain, incomplete return of function or motion, likely need for further surgery in future including revision, anesthetic/medical complications including heart attack, stroke, transfusion reactions and even . We discussed how any of these events can be devastating. We have discussed nonsurgical alternatives as well. I've explained that the patient is at a significant surgical risk due to his medical/cardiac comorbidities and fragility of the bone. Patient seemed to understand and accept these risks. We have discussed nonsurgical alternatives as well. The nonoperative management would essentially consist of prolonged bed rest and traction (skeletal/skin) in bed and pain medication and has exceptionally poor outcome. This could result in nonunion and malunion of the fracture and almost certainly, the patient has a very high risk of decubitus ulcers, UTI, respiratory tract infections, DVT/PE and other complications from being bedridden. I have explained to the patient that the standard of care for this type of injury is surgical throughout the country unless the patient is very ill for surgical management. We also discussed the postoperative course including the rehab and physical therapy required. Patient lives by himself and may need to go to a short-term rehab place after surgery. All his questions were answered and he verbalized a good understanding. Patient is cleared for surgery by Dr. Shepherd. We would obtain a preoperative anesthetic evaluation. Patient understood the risks, agreed to proceed with surgery, and no guarantees or assurances were given or implied. I have recommended- Type and screen Continue n.p.o. Continue IV fluids DVT prophylaxis as per protocol Analgesia as needed Consent patient for a total hip arthroplasty/hemiarthroplasty LEFT hip. Order 2 g of IV Ancef and IV vancomycin (pharmacy to dose) for preoperative prophylaxis. I am planning to take him for surgery at the earliest opportunity today. Thank you for the opportunity to take part in the care of this very pleasant patient.
--- NOTE | 2019-06-13 18:19 | Progress Note ---
[facility] Anesthesia Record Part I Intake, IV Amount: 1,500 Estimated blood loss (mL): 1,700 Urine output (mL): 700 Blood Products used (#): none Blood Pressure: 104/55 SaO2: 91 Pulse Rate: 93 Respiratory Rate: 18 Temperature: 98.4 F Patient is:: Drowsy, Nasal O2, Stable Stable to PACU at:: 18:15
--- NOTE | 2019-06-13 18:21 | Progress Note ---
[facility] Anesthesia Checklist - Patient Identification Patient Identification: Arm Band, Verbal (Name & ) - Structural Data Admitted From: Inpatient Planned Operative Procedure/s: l hieu Consent for Planned Operative Procedure(s) Verified: Yes Verified Documents: History and Physical - NPO Status Verified Time NPO: 00:00 - Chart Verification Results Verified: CBC, BMP - Additional verifications Patient : No Anesthesia Reactions: No Hx Blood Transfusions: No Blood Transfusion Reaction: No Cephalosporin Allergy: No Previous Colonoscopy: No - Cardiovascular Assessment Heart Sounds: S1 & S2 Pulse Strength: Baseline Pulse Rhythm: Regular Peripheral Edema: No - Airway Assessment C-Spine Mobility Assessed: Yes TMJ Mobility Assessed: Yes Dentition: Edentulous - Neurological Assessment Level of Consciousness: Awake, Alert, Appropriate Hx Seizures: No Numbness or tingling in extremities: No - Anesthesia Plan Anesthesia Risk discussed: Yes Anesthesia Plan: Verified ASA Class: III Anesthesia Type: General [facility] History I have reviewed the patient's past medical history: Yes Medical History: Reports:: Anxiety, Cerebrovascular Accident, Hyperlipidemia, Hypertension, Myocardial Infarction Denies:: Cancer, Diabetes Mellitus Type 1, Diabetes Mellitus Type 2, MRSA *Have you ever received a pneumonia vaccine?: No *Have you received a flu vaccine this season?: Yes Other Medical History: Reports: Anemia Anesthesia experience/problems:: none Other Surgeries: Yes: Other Amputation: No Fractures: No - *Social History Educational Level: Completed College Smoking Status: Current every day smoker Tobacco Type: cigarettes # Packs/Day (cigarettes): 1 Alcohol Intake: never Substance Use Type: marijuana Last Used Substance: days (ago) *Occupational Status:: disabled Housing: house Household Members: none *Travel in the last 8 weeks: None - Psychiatric History Pschychiatric History:: Reports:: Anxiety Family Hx:: No significant family history
[2019-06-13 18:34] LABS: Hemoglobin 10.3 g/dL (14.1-18.0)
--- NOTE | 2019-06-13 18:47 | Operative Note ---
Date of procedure: 06/13/19 Pre-op Diagnosis:: 1. Displaced subcapital femoral neck fracture, left hip 2. Osteoarthritis, left hip Post-op Diagnosis:: Same Procedure performed:: Total hip arthroplasty, left hip Surgeon:: Yonatan Avila MD Final Finisher(s):: Samantha Argueta SUPERVISOR INSPECTION AND TESTING:: Luis Meyers Anesthesia: GETA Estimated blood loss (mL): 1,700 Clinical Note:: Patient is a 58-year-old male who sustained a displaced intracapsular fracture neck of left femur following a mechanical fall. Patient lives by himself and usually walks independently without any walking aids. However, he is giving a history of worsening left hip pain and stiffness for the last 2 to 3 years. He denies loss of consciousness, chest pain and shortness of breath. He has history of hypertension, hyperlipidemia, myocardial infarction, COPD, chronic tobacco abuse and CVA without residual deficits. Patient is on long-term Plavix. Given the fracture pattern, history of hip pain and evidence of arthritis on x-rays and his medical comorbidities, a total hip arthroplasty is indicated to relieve pain and restore function. The operation is clinically indicated and is the standard of care for this type of fracture. Please refer to my consult note for full details. Operative findings:: Displaced sub capital femoral neck fracture of the left hip as noted on the preoperative hip x-rays. The femoral head was misshapen with arthritic changes and osteophytes on both sides of the hip joint; arthritic changes noted on the acetabular side also with osteophyte formation and loss of articular cartilage. The proximal femur bone quality is good. There was more than usual amount of blood loss during surgery possibly due to the fact that patient is on Plavix. Operative note:: On the day of the procedure the patient was met on the floor, and a physical examination was performed. The operating side and site were marked and initialed by me. I reviewed the diagnosis, natural history and management options in detail including both the nonsurgical and surgical. Given the nature of the fracture, x-ray findings including evidence of pre-existing hip arthritis, his age and medical comorbidities, I have recommended surgery in the form of a total hip arthroplasty of the left hip. I have discussed the procedure, risks and benefits, alternatives, potential complications and expected outcomes with the patient. The complications discussed include but are not limited to infection, injury to nerves and blood vessels, DVT and PE, femur fracture, limb length inequality, dislocation, implant failure, loosening, acetabular wear, osteolysis, periprosthetic femur fracture, heterotopic ossification, abductor weakness and a limp, incomplete relief of pain, incomplete return of function or motion, likely need for further surgery in future including revision, anesthetic/medical complications including heart attack, stroke, transfusion reactions and even . We discussed how any of these events can be devastating. We have discussed nonsurgical alternatives as well. We also discussed the postoperative course including the rehab and physical therapy required. Patient understood the risks, agreed to proceed with surgery, signed the consent form and no guarantees or assurances were given or implied. The patient was brought to the operating room and a general anesthesia was administered by the field map editor. The patient was then transferred onto the operating table and positioned in the right lateral decubitus position with the left hip facing upwards. All the bony prominences were well-padded. The left lower extremity was then prepped (prepped with isopropyl alcohol followed by chlorhexidine) and draped in the usual sterile fashion. The entire operative team used isolation suits and room traffic was controlled. The surgical landmarks and incision was marked over the skin with a marking pen. Ioban sterile drape was used to cover the operative site and isolate the perineum completely from the operative field. A preprocedure timeout was performed as per hospital protocol identifying the patient, correct surgery and correct site. Administration of prophylactic antibiotics (IV Ancef and vancomycin) was confirmed with the field map editor. Before completion of the procedure 1 more gram of IV Ancef was administered as the operating time was over 2 hours. We did not give him tranexamic acid given the history of CVA and stent placement. A posterior approach was used to the left hip joint. The skin incision was made centering over the posterior part of the greater trochanter extending posteriorly in a curved fashion across the buttock. An electrocautery was used for hemostasis. The dissection was carried through the subcutaneous tissue down to the fascia gabe. The fascia gabe and gluteus fascia were split in line with the skin incision and a Charnley retractor was placed. The trochanteric bursa was then removed with blunt dissection. The sciatic nerve was identified and kept out of harm's way throughout the rest of the procedure. The hip joint was internally rotated and the fat over the short external rotators was cleared with a sponge. The short external rotator muscles were identified, multiple Ethibond tag stitches were placed near their insertion and they were divided close to the trochanter with electrocautery. This exposed the joint capsule which was opened in a T-shaped incision after tag stitches were placed to both the leaves of the capsule. Upon entering the joint capsule, a fracture hematoma was noted as well as the displaced sub-capital femoral neck fracture. A femoral cutting guide was used to ariela the level of the appropriate femoral neck cut. An oscillating saw was then used to finish the femoral cut. The cut bone fragments were removed and a corkscrew was then used to remove the femoral head from the acetabulum and passed to the health information technician to be sized on the back table. It measured 56 mm and was noted to be deformed and arthritic and saved on the back table for later use if needed. All bone fragments were then removed from the acetabulum and surrounding soft tissue. The acetabulum was then inspected and and was also noted to be arthritic with peripheral osteophytes. We then placed anterior and posterior Cobra retractors and proceeded to prepare the acetabulum. The soft tissue contents of the acetabulum including the ligamentum teres and the labrum were removed. We then proceeded to reaming the acetabulum. We started off with a size 53 reamer and then proceeded with reaming up to size 57 for a size 58 acetabular shell. We used a size 58 cup trial which could be seated firmly and was noted to be stable. We then removed the trial shell and placed a size 58 definitive acetabular cluster hole shell at approximately 45 degrees inclination and 20 degrees of anteversion. The press-fit fixation was quite solid and therefore, I did not need to place any screws for additional fixation. We then placed the metal liner into the shell and impacted into place. We then placed a Ray-Marito gauze in the acetabulum and proceeded to prepare the proximal femur. After removing the soft tissue from the medial aspect of the greater trochanter, a box osteotome was used to remove the bone from the proximal femur. A canal entry reamer was then used to open the femoral canal paying close attention to keep the reamer in a lateral position. Next we used the lateralizing drill. Next we performed femoral broaching starting with a small broach, making sure to lateralize the placement and maintain 15-20 degrees of femoral anteversion. The broaching was continued sequentially up to size 9 broach. We found this to be a very good fit without any rocking. We then finished the preparation of the proximal femur with a calcar reamer. We then performed a trial reduction using various head and neck sizes. A size 9 broach, 127 angle neck and +4 mm head were found to be appropriate. With these trials in place the hip joint was taken through range of motion and tested in adduction, internal and external rotation as well as with a shuck and posteriorly directed force on a flexed hip. We placed the hip at 90 degrees of flexion and then we could internally rotate to beyond 60 degrees with no evidence of instability. Also in the sleep position of approximately 20 degrees of adduction and internal rotation of 60 degrees the hip was still stable. We also noted that the limb lengths were equal with these components. As the hip was noted to be very stable with these trial components throughout the range of motion, we decided on this as our final construct. Next the trial components were removed and the femoral canal was irrigated with the pulse lavage and suctioned out. The definitive femoral stem was then placed and seated to the appropriate level. This gave us a very good fit without any play whatsoever. We then irrigated and dried the Arnold taper and then placed the definitive MDM femoral head assembly on the stem and tapped into place. The Ray-Marito was removed from the acetabulum and hip joint irrigated with the pulse lavage. The hip was then reduced and taken through range of motion and noted to be very stable. The limb length was also well corrected. The hip joint was then soaked with dilute Betadine (0.35 percent) solution for 3 minutes followed by suctioning of the solution and pulsatile lavage with 1 L of normal saline. During the procedure there was more than usual amount of blood loss likely due to the fact that patient is on Plavix. However, patient was overall stable according to the field map editor. At this point, I also injected the capsule and soft tissue with the local anesthetic cocktail (0.5 percent bupivacaine 200 mg +10 mg of morphine +600 g of epinephrine +750 mg of cefuroxime +30 mg of ketorolac diluted in normal saline to make up a total volume of 120 mL). Good hemostasis was obtained with diathermy cautery before proceeding with wound closure. The capsule was closed with #1 Vicryl sutures followed by the reattachment of the external rotators to the greater trochanter with #1 Vicryl sutures. Next the fascia gabe and gluteus fascia were closed with #1 STRATAFIX knotless suture. The wound was then finally irrigated with pulse lavage and suctioned dry. Next the subcutaneous tissue was closed with #0 STRATAFIX suture. The skin was closed with subcuticular 3-0 STRATAFIX sutures and Dermabond prinio dressing. Sterile dressings were applied consisting of 4 x 4 and ABDs, secured in place with adhesive tape. No drains were placed. The patient was then transferred from the operating table onto the bed. The leg lengths were again checked in supine position and noted to be equal. An a bduction foam was placed between the legs. The patient was then reversed from the anesthetic and transported to the postoperative recovery area in a stable condition. Patient tolerated the procedure well and there were no immediate complications. The swab, needle and instrument counts were correct according to the scrub team at the end of the procedure. Portable x-rays of the operated hip were obtained in the recovery area which showed satisfactory placement of the components and no evident complications. Postoperatively, we would institute and continue standard precautions for a posterior hip approach. Patient can be mobilized weightbearing as tolerated with the help of physical therapy and commence standard physical therapy for a posterior approach total hip arthroplasty on the first postoperative day. Implants: The following [place] implants were used- Moustapha Accolade 2 press-fit femoral stem, 127 degree neck angle, size 9 Trident 2 Tritanium cluster hole acetabular shell, 58 mm MDM cementless liner, 46 mm inner diameter Je[employer]ah[employer] Witness MDM X3 insert 28/ 52, size 46F Biolox delta ceramic head V 40 femoral head, size 28 mm x +4 mm neck length Industry solar sales representative: Rasta Quinones from [employer]. Condition: stable Disposition: PACU Specimens:: None Complications:: None
--- NOTE | 2019-06-13 18:52 | Progress Note ---
[facility] Anesthesia Record Part II Discharge Time: 18:45 Destination: Medical Surgical Department PACU nurse assessment reviewed?: Yes Patient Condition:: Good Anesthesia Complications:: None Swallowing reflex intact?: Yes Cyanosis?: No Blood Pressure: 114/61 Pulse Rate: 90 Temperature: 98.9 F Mental Status: Alert & Oriented Pain level:: 0 Nausea and/or vomitting:: None Intake, IV Amount: 0
[2019-06-14 06:01] LABS: Basophils % 0.1 % (0.1-2.0); Eosinophils % 0.2 % (0.1-12.0); Monocytes % 5.8 % (1.7-9.3)
[2019-06-14 06:05] LABS: Hematocrit 27.3 % (42.0-52.0); Lymphocytes # 1.1 K/mm3 (0.7-4.5); Lymphocytes % 6.3 % (10-50); Mean Corpuscular HGB Conc 33.3 g/dL (31.8-35.4); Mean Corpuscular Volume 92.6 fl (80-94); Mean Platelet Volume 7.9 fl (7.4-10.4); Neutrophils # 15.1 K/mm3 (1.8-7.8); Neutrophils % 87.7 % (37.0-80.0); Platelet Count 167 K/mm3 (142-424); Red Blood Count 2.95 M/mm3 (4.60-6.20); White Blood Count 17.2 K/mm3 (4.8-10.8)
[2019-06-14 06:06] LABS: Hemoglobin 9.1 g/dL (14.1-18.0)
[2019-06-14 06:18] LABS: Lymphocytes % 5 % (10-50); Monocytes % 5 % (2-9); Neutrophils % 90 % (42-76); Total Cells Counted 100
[2019-06-14 06:19] LABS: RBC Morphology Normal
[2019-06-14 06:27] LABS: Anion Gap 13.7 mEq/L (5-15); Chol/HDL Ratio 1.8 (1-3.5)
[2019-06-14 07:38] LABS: Calcium 7.8 mg/dL (8.5-10.1)
--- NOTE | 2019-06-14 08:53 | Progress Note ---
Internal Medicine - PN: Subj *Date: 06/15/19 *Time: 10:13 Interval history: doing better - toleration diet Exam Vital signs and Labs for Last 24 Hours: Temp Pulse Resp BP Pulse Ox 98.5 F 80 18 107/53 L 90 L 06/14/19 08:00 06/14/19 08:00 06/14/19 08:00 06/14/19 08:00 06/14/19 08:00 Laboratory Results - last 24 hr 06/13/19 09:15: Troponin I 0.04 06/13/19 11:25: Blood Type O Positive, Antibody Screen Positive 06/13/19 12:35: Troponin I 0.03 06/13/19 18:25: Hgb 10.3 L D, Hct 31.0 L 06/14/19 05:36: WBC 17.2 H, RBC 2.95 L D, Hgb 9.1 L D, Hct 27.3 L, MCV 92.6, MCH 30.9, MCHC 33.3, RDW 13.0, Plt Count 167, MPV 7.9, Neut % (Auto) 87.7 H, Lymph % (Auto) 6.3 L, [place] % (Auto) 5.8, Eos % (Auto) 0.2, Baso % (Auto) 0.1, Neut # (Auto) 15.1 H, Lymph # (Auto) 1.1, [place] # (Auto) 1.0, Eos # (Auto) 0.0, Baso # (Auto) 0.0, Total Counted 100, Neutrophils % (Manual) 90 H, Lymphocytes % (Manual) 5 L, Monocytes % (Manual) 5, Platelet Estimate Normal, RBC Morphology Normal 06/14/19 05:36: Sodium 138, Potassium 4.7, Chloride 102, Carbon Dioxide 27, Anion Gap 13.7, BUN 37 H D, Creatinine 1.47 H, Estimated Creat Clear 69, Estimated GFR 49 L, Est GFR ( Amer) 60, Glucose 129 H, Calcium 7.8 L D, Magnesium 1.9, Triglycerides 60, Cholesterol 72 L, LDL Cholesterol 19, VLDL Cholesterol 12, HDL Cholesterol 41, Cholesterol/HDL Ratio 1.8 I & O for Last 24 hours: Intake & Output 06/11/19 06/12/19 06/13/19 06/14/19 11:59 11:59 11:59 11:59 Intake Total 3356 / 3356 Output Total 300 / 300 Balance 3056 / 3056 Weight 193 lb 8 oz 196 lb - Constitutional no acute distress - *Routine HEENT Exam Head: Present: normocephalic Eye: Present: EOMI, PERRL ENT: Present: mucous membranes dry - *Routine Respiratory Exam Present: wheezes - *Routine Cardiovascular Exam Present: RRR. Absent: murmur - *Routine Abdominal Exam Present: soft - *Routine Extremities Exam Absent: calf tenderness - *Routine Skin Exam Present: intact - *Routine Neurological Exam Present: alert, CN II-XII intact - Routine Psychiatric Exam Present: normal affect Assessment and Plan (1) Hip fracture Current visit: Yes Status: Acute Qualifiers: Encounter type: initial encounter Fracture type: closed Laterality: left Qualified Code(s): S72.002A - Fracture of unspecified part of neck of left femur, initial encounter for closed fracture Category: Medical Code(s): S72.009A - Fracture of unspecified part of neck of unspecified femur, initial encounter for closed fracture (2) SIRS (systemic inflammatory response syndrome) Current visit: Yes Status: Acute Category: Medical Code(s): R65.10 - Systemic inflammatory response syndrome (SIRS) of non-infectious origin without acute organ dysfunction (3) H/O: CVA (cerebrovascular accident) Current visit: No Status: Chronic Category: Medical Code(s): Z86.73 - Personal history of transient ischemic attack (TIA), and cerebral infarction without residual deficits (4) COPD (chronic obstructive pulmonary disease) Current visit: Yes Status: Chronic Qualifiers: COPD type: unspecified COPD Qualified Code(s): J44.9 - Chronic obstructive pulmonary disease, unspecified Category: Medical Code(s): J44.9 - Chronic obstructive pulmonary disease, unspecified (5) Hypertension Current visit: No Status: Chronic Qualifiers: Hypertension type: essential hypertension Qualified Code(s): I10 - Essential (primary) hypertension Category: Medical Code(s): I10 - Essential (primary) hypertension (6) Epilepsy Current visit: Yes Status: Chronic Qualifiers: Epilepsy type: unspecified Intractability: not intractable Status epilepticus: without status epilepticus Qualified Code(s): G40.909 - Epilepsy, unspecified, not intractable, without status epilepticus Category: Medical Code(s): G40.909 - Epilepsy, unspecified, not intractable, without status epilepticus (7) Anxiety Current visit: Yes Status: Chronic Category: Medical Code(s): F41.9 - Anxiety disorder, unspecified (8) H/O: CVA (cerebrovascular accident) Current visit: Yes Status: Chronic Category: Medical Code(s): Z86.73 - Personal history of transient ischemic attack (TIA), and cerebral infarction without residual deficits
--- NOTE | 2019-06-14 16:42 | Progress Note ---
Subjective Date: 06/14/19 Time: 15:00 Principal diagnosis: Status post total hip arthroplasty, left Interval history: Patient is status post LEFT total hip arthroplasty post op day #1. Patient is lying down on the bed and says he is doing well and reports no problems. Patient has minimal pain and says it's well-controlled with medication. No history of any nausea or vomiting. No history of any cough, chest pain, shortness of breath or palpitations. Patient says he is eating and drinking well. No history of any distal tingling or numbness. PN: Obj Ex Vital signs: Temp Pulse Resp BP Pulse Ox 99.5 F 83 18 121/60 96 06/14/19 11:47 06/14/19 14:18 06/14/19 11:47 06/14/19 11:47 06/14/19 11:47 Narrative: Laboratory Results - last 24 hr 06/13/19 18:25: Hgb 10.3 L D, Hct 31.0 L 06/14/19 05:36: WBC 17.2 H, RBC 2.95 L D, Hgb 9.1 L D, Hct 27.3 L, MCV 92.6, MCH 30.9, MCHC 33.3, RDW 13.0, Plt Count 167, MPV 7.9, Neut % (Auto) 87.7 H, Lymph % (Auto) 6.3 L, [place] % (Auto) 5.8, Eos % (Auto) 0.2, Baso % (Auto) 0.1, Neut # (Auto) 15.1 H, Lymph # (Auto) 1.1, [place] # (Auto) 1.0, Eos # (Auto) 0.0, Baso # (Auto) 0.0, Total Counted 100, Neutrophils % (Manual) 90 H, Lymphocytes % (Manual) 5 L, Monocytes % (Manual) 5, Platelet Estimate Normal, RBC Morphology Normal 06/14/19 05:36: Sodium 138, Potassium 4.7, Chloride 102, Carbon Dioxide 27, Anion Gap 13.7, BUN 37 H D, Creatinine 1.47 H, Estimated Creat Clear 69, Estimated GFR 49 L, Est GFR ( Amer) 60, Glucose 129 H, Calcium 7.8 L D, Magnesium 1.9, Triglycerides 60, Cholesterol 72 L, LDL Cholesterol 19, VLDL Cholesterol 12, HDL Cholesterol 41, Cholesterol/HDL Ratio 1.8 Intake & Output 06/12/19 06/13/19 06/14/19 06/15/19 11:59 11:59 11:59 11:59 Intake Total 3356 / 3356 480 / 480 Output Total 300 / 300 150 / 150 Balance 3056 / 3056 330 / 330 Weight 193 lb 8 oz 196 lb Exam General appearance: alert, active, awake, no acute distress Cardiovascular: regular rate & rhythm, normal peripheral pulses Respiratory: No respiratory distress noted, speaks in full sentences ABD: soft and non tender Neuro: alert, awake, oriented x 3 Psych: Appropriate mood and affect for his situation Genitourinary: Catheter in situ. On examination of the lower extremities the limb lengths are equal. Thigh and calf are soft and nontender. On examination of the LEFT hip the dressings are clean, dry and intact. There is no soakage of the dressings. No evidence of any infection or other complications is noted. Distal pulses are 2+. Distal sensation is intact to light touch throughout. No motor deficits noted distally. Diagnostic imaging: Postoperative check x-ray satisfactory with good alignment and fixation of the components. No complications are noted on the x-rays. I have given a paper copy of the x-ray to the patient. - Urinary Catheter Management Koroma Cath placed during this visit: Yes Urethral indwelling: Yes Reason for continuing: Surgical procedure Progress Note: A&P (1) Hip fracture Status: Acute Current Visit: Yes (2) SIRS (systemic inflammatory response syndrome) Status: Acute Current Visit: Yes (3) H/O: CVA (cerebrovascular accident) Status: Chronic Current Visit: No (4) COPD (chronic obstructive pulmonary disease) Status: Chronic Current Visit: Yes (5) Hypertension Status: Chronic Current Visit: No (6) Epilepsy Status: Chronic Current Visit: Yes (7) Anxiety Status: Chronic Current Visit: Yes (8) H/O: CVA (cerebrovascular accident) Status: Chronic Current Visit: Yes (9) History of total left hip arthroplasty Status: Acute Current Visit: Yes Assessment and Plan for All Diagnoses:: I have reviewed the clinical and operative findings and procedure performed with the patient. Patient is doing well and reports no problems. During surgery there was more than usual blood loss but he has been stable throughout; his H&H today is 9.1/27.3. His white count is still elevated today and I would recommended continuation of IV Ancef and vancomycin for 2 more days. Patient has started mobilizing well with physical therapy weightbearing as tolerated on the LEFT side with the walker and to continue the same. Continue DVT prophylaxis. Continue abduction pillow when in bed and continue standard precautions for the posterior approach hip replacement. Discontinue IV fluids and discontinue the urinary catheter. Case management consult regarding discharge planning. Recommend DVT prophylaxis for 5 weeks postop- the appropriate agents include Lovenox, Aspirin 325 mg, Xarelto (Rivaroxaban), Eliquis (apixaban) and Coumadin. Continue medical management as per Dr. Shepherd.
--- NOTE | 2019-06-15 09:26 | Progress Note ---
Internal Medicine - PN: Subj *Date: 06/15/19 *Time: 09:23 Interval history: pt up in chair with OT, dressing c/d/i. states weak Exam Vital signs and Labs for Last 24 Hours: Temp Pulse Resp BP Pulse Ox 98.8 F 85 20 121/64 93 L 06/15/19 08:00 06/15/19 08:00 06/15/19 08:00 06/15/19 08:00 06/15/19 08:00 Laboratory Results - last 24 hr 06/13/19 11:25: Antibody Identification Warm Auto Antibody I & O for Last 24 hours: Intake & Output 06/12/19 06/13/19 06/14/19 06/15/19 11:59 11:59 11:59 11:59 Intake Total 3356 / 3356 1020 / 1020 Output Total 300 / 300 1725 / 1725 Balance 3056 / 3056 -705 / -705 Weight 193 lb 8 oz 196 lb 195 lb 15.855 oz Microbiology Reports for the Last 24 Hours: Microbiology 06/13/19 06:30 Blood Blood Culture - Preliminary NO GROWTH AFTER 48 HOURS 06/13/19 06:30 Blood Blood Culture - Preliminary NO GROWTH AFTER 48 HOURS - Constitutional no acute distress - *Routine HEENT Exam Head: Present: normocephalic Eye: Present: PERRL ENT: Present: mucous membranes moist - *Routine Neck Exam Present: supple, full ROM. Absent: lymphadenopathy - *Routine Respiratory Exam Present: wheezes - *Routine Cardiovascular Exam Present: RRR - *Routine Abdominal Exam Present: soft, normoactive bowel sounds. Absent: tenderness - *Routine Extremities Exam Present: full ROM, normal capillary refill. Absent: cyanosis, clubbing, edema Comments: dressing to left hip c/d/i - *Routine Skin Exam Present: warm. Absent: rash Comments: dressing c/d/i - *Routine Neurological Exam Present: alert, oriented X3 - Routine Psychiatric Exam Present: normal affect Assessment and Plan (1) Hip fracture Current visit: Yes Status: Acute Qualifiers: Encounter type: initial encounter Fracture type: closed Laterality: left Qualified Code(s): S72.002A - Fracture of unspecified part of neck of left femur, initial encounter for closed fracture Category: Medical Code(s): S72.009A - Fracture of unspecified part of neck of unspecified femur, initial encounter for closed fracture (2) SIRS (systemic inflammatory response syndrome) Current visit: Yes Status: Acute Category: Medical Code(s): R65.10 - Systemic inflammatory response syndrome (SIRS) of non-infectious origin without acute organ dysfunction (3) H/O: CVA (cerebrovascular accident) Current visit: No Status: Chronic Category: Medical Code(s): Z86.73 - Personal history of transient ischemic attack (TIA), and cerebral infarction without residual deficits (4) COPD (chronic obstructive pulmonary disease) Current visit: Yes Status: Chronic Qualifiers: COPD type: unspecified COPD Qualified Code(s): J44.9 - Chronic obstructive pulmonary disease, unspecified Category: Medical Code(s): J44.9 - Chronic obstructive pulmonary disease, unspecified (5) Hypertension Current visit: No Status: Chronic Qualifiers: Hypertension type: essential hypertension Qualified Code(s): I10 - Essential (primary) hypertension Category: Medical Code(s): I10 - Essential (primary) hypertension (6) Epilepsy Current visit: Yes Status: Chronic Qualifiers: Epilepsy type: unspecified Intractability: not intractable Status epilepticus: without status epilepticus Qualified Code(s): G40.909 - Epilepsy, unspecified, not intractable, without status epilepticus Category: Medical Code(s): G40.909 - Epilepsy, unspecified, not intractable, without status epilepticus (7) Anxiety Current visit: Yes Status: Chronic Category: Medical Code(s): F41.9 - Anxiety disorder, unspecified (8) H/O: CVA (cerebrovascular accident) Current visit: Yes Status: Chronic Category: Medical Code(s): Z86.73 - Personal history of transient ischemic attack (TIA), and cerebral infarction without residual deficits (9) History of total left hip arthroplasty Current visit: Yes Status: Acute Category: Surgical Code(s): Z96.642 - Presence of left artificial hip joint - Assessment and plan all Dx Assessment and Plan for all problems:: rounded with carol all orders per dr medina will discuss low h/h with andres-
--- NOTE | 2019-06-15 12:00 | Pharmacy Consult Notes ---
- Pharmacy Consult Date: 06/15/19 Time: 11:58 Referring provider: DR. CALDWELL Reason for Consult:: VANCOMYCIN DOSING Allergies and ADEs:: Allergies Allergy/AdvReac Type Severity Reaction Status Date / Time No Known Allergies Allergy Verified 02/07/19 11:22 Home Medications:: Home Medications Medication Instructions Recorded Confirmed Type albuterol sulfate 90 mcg/actuation 2 puff INHALATION Q4-6H PRN 30 01/02/19 06/13/19 Rx aerosol inhaler Days #6.7 g Amlodipine Besylate [Amlodipine 10 mg PO DAILY 06/13/19 06/13/19 History 10mg Tab] Atorvastatin Calcium [Atorvastatin 40 mg PO HS 06/13/19 06/13/19 History 40mg Tab] Budesonide/Formoterol Fumarate 2 puffs IH BID 06/13/19 06/13/19 History [Symbicort] Buspirone HCl [Buspar 10mg 10 mg PO TID 06/13/19 06/13/19 History tablet] Clopidogrel Bisulfate [Plavix 75mg 75 mg PO DAILY 06/13/19 06/13/19 History Tab] Lacosamide [Vimpat] 50 mg PO BID 06/13/19 06/13/19 History Lacosamide [Vimpat] 200 mg PO BID 06/13/19 06/13/19 History Trazodone HCl 50 mg PO HS 06/13/19 06/13/19 History Umeclidinium [place] [Incruse 1 inh INHALATION DAILY 06/13/19 06/13/19 History Ellipta] levETIRAcetam [Levetiracetam] 500 mg PO BID 06/13/19 06/13/19 History Height: 1.91 m Weight: 88.9 kg Laboratory Results:: Laboratory Results - last 24 hr 06/13/19 11:25: Crossmatch ([facility]) See Detail 06/13/19 11:25: Antibody Identification Warm Auto Antibody Medical History: Reports:: Anxiety, Cerebrovascular Accident, Hyperlipidemia, Hypertension, Myocardial Infarction Denies:: Cancer, Diabetes Mellitus Type 1, Diabetes Mellitus Type 2, MRSA, Seizures Assessment and Plan (1) Hip fracture Current visit: Yes Status: Acute Qualifiers: Encounter type: initial encounter Fracture type: closed Laterality: left Qualified Code(s): S72.002A - Fracture of unspecified part of neck of left f emur, initial encounter for closed fracture Category: Medical Code(s): S72.009A - Fracture of unspecified part of neck of unspecified femur, initial encounter for closed fracture (2) SIRS (systemic inflammatory response syndrome) Current visit: Yes Status: Acute Category: Medical Code(s): R65.10 - Systemic inflammatory response syndrome (SIRS) of non-infectious origin without acute organ dysfunction (3) H/O: CVA (cerebrovascular accident) Current visit: No Status: Chronic Category: Medical Code(s): Z86.73 - Personal history of transient ischemic attack (TIA), and cerebral infarction without residual deficits (4) COPD (chronic obstructive pulmonary disease) Current visit: Yes Status: Chronic Qualifiers: COPD type: unspecified COPD Qualified Code(s): J44.9 - Chronic obstructive pulmonary disease, unspecified Category: Medical Code(s): J44.9 - Chronic obstructive pulmonary disease, unspecified (5) Hypertension Current visit: No Status: Chronic Qualifiers: Hypertension type: essential hypertension Qualified Code(s): I10 - Essential (primary) hypertension Category: Medical Code(s): I10 - Essential (primary) hypertension (6) Epilepsy Current visit: Yes Status: Chronic Qualifiers: Epilepsy type: unspecified Intractability: not intractable Status epilepticus: without status epilepticus Qualified Code(s): G40.909 - Epilepsy, unspecified, not intractable, without status epilepticus Category: Medical Code(s): G40.909 - Epilepsy, unspecified, not intractable, without status epilepticus (7) Anxiety Current visit: Yes Status: Chronic Category: Medical Code(s): F41.9 - Anxiety disorder, unspecified (8) H/O: CVA (cerebrovascular accident) Current visit: Yes Status: Chronic Category: Medical Code(s): Z86.73 - Personal history of transient ischemic attack (TIA), and cerebral infarction without residual deficits - Assessment and plan all Dx Assessment and Plan for all problems:: BASED ON PATIENT'S FACTORS, RECOMMEND CHANGING FROM VANCOMYCIN 1500 MG Q12H TO VANCOMYCIN 1750 MG Q18H AT THIS TIME. PHARMACY WILL FOLLOW DAILY AND ADJUST APPROPRIATE.
--- NOTE | 2019-06-15 19:28 | Progress Note ---
Subjective Date: 06/15/19 Time: 18:30 Principal diagnosis: Status post total hip arthroplasty, left Interval history: Patient is status post LEFT total hip arthroplasty post op day #2. Patient is sitting out in the chair and says he is doing well. He reports intractable hiccups but otherwise no major problems. Patient has minimal pain and says it's well-controlled with medication. No history of any nausea or vomiting. No history of any cough, chest pain, shortness of breath or palpitations. Patient says he is eating and drinking well. No history of any distal tingling or numbness. PN: Obj Ex Vital signs: Temp Pulse Resp BP Pulse Ox 98.6 F 97 H 20 131/64 95 06/15/19 18:55 06/15/19 18:55 06/15/19 18:55 06/15/19 18:55 06/15/19 18:55 Narrative: Laboratory Results - last 24 hr 06/13/19 11:25: Blood Type O Positive, Antibody Screen Positive, Crossmatch ([facility]) See Detail 06/13/19 11:25: Antibody Identification Warm Auto Antibody 06/15/19 05:36: Blood Type Confirm O Positive Intake & Output 06/13/19 06/14/19 06/15/19 06/16/19 11:59 11:59 11:59 11:59 Intake Total 3356 / 3356 1020 / 1020 480 / 480 Output Total 300 / 300 1725 / 1725 200 / 200 Balance 3056 / 3056 -705 / -705 280 / 280 Weight 193 lb 8 oz 196 lb 195 lb 15.855 oz Exam General appearance: alert, active, awake, no acute distress Cardiovascular: regular rate & rhythm, normal peripheral pulses Respiratory: No respiratory distress noted, speaks in full sentences ABD: soft and non tender Neuro: alert, awake, oriented x 3 Psych: Appropriate mood and affect for his situation On examination of the lower extremities the limb lengths are equal. Thigh and calf are soft and nontender. On examination of the LEFT hip the dressings are clean, dry and intact. The dressings are changed by me. There is minimal soakage of the dressings. The wound looks clean and healthy. No evidence of any infection or other complications is noted. Distal pulses are 2+. Distal sensation is intact to light touch throughout. No motor deficits noted distally. - Urinary Catheter Management Koroma Cath placed during this visit: no Urethral indwelling: Yes Progress Note: A&P (1) Hip fracture Status: Acute Current Visit: Yes (2) SIRS (systemic inflammatory response syndrome) Status: Acute Current Visit: Yes (3) H/O: CVA (cerebrovascular accident) Status: Chronic Current Visit: No (4) COPD (chronic obstructive pulmonary disease) Status: Chronic Current Visit: Yes (5) Hypertension Status: Chronic Current Visit: No (6) Epilepsy Status: Chronic Current Visit: Yes (7) Anxiety Status: Chronic Current Visit: Yes (8) H/O: CVA (cerebrovascular accident) Status: Chronic Current Visit: Yes Assessment and Plan for All Diagnoses:: I have reviewed the clinical findings with the patient. Patient is doing well from an orthopedic standpoint; he is mobilizing well weightbearing as tolerated on the LEFT side with the walker and to continue the same. He is receiving blood transfusion for low H&H. Continue DVT prophylaxis. Continue abduction pillow when in bed and continue standard precautions for the posterior approach hip replacement. Case management looking into discharge planning. Recommend DVT prophylaxis for 6 weeks postop- the appropriate agents include Lovenox, Aspirin 325 mg, Xarelto (Rivaroxaban), Eliquis (apixaban) and Coumadin. Follow- up in my office in 2 weeks time with check x-ray. Please feel free to call our office at [phone] for any orthopaedic questions. Medical management as per Dr. Shepherd.
[2019-06-15 22:43] LABS: Hematocrit 26.3 % (42.0-52.0); Hemoglobin 8.7 g/dL (14.1-18.0)
[2019-06-16 09:05] LABS: Basophils % 0.3 % (0.1-2.0); Eosinophils # 0.3 K/mm3 (0.0-0.4); Eosinophils % 2.7 % (0.1-12.0); Hematocrit 25.6 % (42.0-52.0); Hemoglobin 8.9 g/dL (14.1-18.0); Lymphocytes # 0.9 K/mm3 (0.7-4.5); Lymphocytes % 8.7 % (10-50); Mean Corpuscular HGB Conc 34.7 g/dL (31.8-35.4); Mean Corpuscular Volume 89.1 fl (80-94); Mean Platelet Volume 8.1 fl (7.4-10.4); Monocytes # 0.7 K/mm3 (0.1-1.0); Monocytes % 6.8 % (1.7-9.3); Neutrophils # 8.7 K/mm3 (1.8-7.8); Neutrophils % 81.4 % (37.0-80.0); Platelet Count 175 K/mm3 (142-424); Red Blood Count 2.87 M/mm3 (4.60-6.20); Red Cell Distribution Width 13.5 % (11.5-17.5); White Blood Count 10.6 K/mm3 (4.8-10.8)
--- NOTE | 2019-06-16 09:16 | Discharge Summary ---
General - General Admission date:: 06/13/19 HPI HPI: this wm fell this am with lt hip injury - pt with trip type injury and no sz or chest pain and denied syncope - he reports at baseline - he has copd and tob use but no home o2 and he has no sz for 6 yrs - he reports no heart disease and has ok echo in ed and ekg nonacute - discussed with dr cole and ok for surg - pt admitted for ortho consult - Hospital Course Hospital Course: chest x ray:IMPRESSION: Stable pulmonary emphysema. Interstitial prominence is stable suggesting a mild interstitial fibrosis. left hip pre op:IMPRESSION: Recent appearing left femoral neck fracture. Arthritic change left hip. chest xrat left hip post op:IMPRESSION: Status post left hip hemiarthroplasty with good alignment anemia 1 unit prbc yesterday to help with o2 need, will dc to [facility] [place] for rehab. recheck cbc on wednesday. dressing changes per campos request. Today pt states he feels much better and breathing much better, no need for o2 today. Objective Vital signs: Temp Pulse Resp BP Pulse Ox 98.6 F 81 20 124/58 L 93 L 06/16/19 08:00 06/16/19 08:00 06/16/19 08:00 06/16/19 08:00 06/16/19 08:00 no acute distress, chronically ill appearing - *Routine HEENT Exam Head: Present: normocephalic Eye: Present: PERRL ENT: Present: mucous membranes moist - *Routine Respiratory Exam Present: decreased breath sounds, CTA bilaterally - *Routine Cardiovascular Exam Present: RRR - *Routine Abdominal Exam Present: soft, normoactive bowel sounds. Absent: tenderness - *Routine Extremities Exam Present: full ROM Comments: dressing c/d/i - *Routine Skin Exam Comments: dressing to hip c/d/i - *Routine Neurological Exam Present: alert, oriented X3 - Routine Psychiatric Exam Present: normal affect Results Labs on day of discharge: Labs from last 24 hours 06/16/19 06/15/19 06/15/19 08:50 22:29 05:36 WBC 10.6 D RBC 2.87 L Hgb 8.9 L 8.7 L Hct 25.6 L 26.3 L MCV 89.1 MCH 30.9 MCHC 34.7 RDW 13.5 Plt Count 175 MPV 8.1 Neut % (Auto) 81.4 H Lymph % (Auto) 8.7 L [place] % (Auto) 6.8 Eos % (Auto) 2.7 Baso % (Auto) 0.3 Neut # (Auto) 8.7 H Lymph # (Auto) 0.9 [place] # (Auto) 0.7 Eos # (Auto) 0.3 Baso # (Auto) 0.0 Blood Type Blood Type Confirm O Positive Antibody Screen Crossmatch ([facility]) 06/13/19 11:25 WBC RBC Hgb Hct MCV MCH MCHC RDW Plt Count MPV Neut % (Auto) Lymph % (Auto) [place] % (Auto) Eos % (Auto) Baso % (Auto) Neut # (Auto) Lymph # (Auto) [place] # (Auto) Eos # (Auto) Baso # (Auto) Blood Type O Positive Blood Type Confirm Antibody Screen Positive Crossmatch ([facility]) See Detail Preliminary micro results at discharge 06/13/19 06:30 Blood Culture - Preliminary Blood NO GROWTH AFTER 48 HOURS 06/13/19 06:30 Blood Culture - Preliminary Blood NO GROWTH AFTER 48 HOURS - Additional Comments rounded with dr medina all orders per carol DS: Diagnosis - Discharge Diagnosis (1) Hip fracture Status: Acute (2) SIRS (systemic inflammatory response syndrome) Status: Acute (3) H/O: CVA (cerebrovascular accident) Status: Chronic (4) COPD (chronic obstructive pulmonary disease) Status: Acute (5) Hypertension Status: Chronic (6) Epilepsy Status: Chronic (7) Anxiety Status: Chronic (8) H/O: CVA (cerebrovascular accident) Status: Chronic (9) Anemia associated with acute blood loss Status: Acute Discharge Plan - Patient Discharge Instructions ACTIVITY: Continue current activity DIET: continue same diet Patient Instructions: Femoral Fracture, Nicotine Addiction, DI for Hip Replacement, DI for Surgical Site Infection - Follow up Plan Follow up with: Yonatan Campos MD [Staff Physician] - 1 week Kirill Medina MD [Emergency Provider] - 1 week Disposition: er [facility] Home Medications: Home Medications Medication Instructions Recorded Confirmed Type albuterol sulfate 90 mcg/actuation 2 puff INHALATION Q4-6H PRN 30 01/02/19 06/13/19 Rx aerosol inhaler Days #6.7 g Amlodipine Besylate [Amlodipine 10 mg PO DAILY 06/13/19 06/13/19 History 10mg Tab] Atorvastatin Calcium [Atorvastatin 40 mg PO HS 06/13/19 06/13/19 History 40mg Tab] Budesonide/Formoterol Fumarate 2 puffs IH BID 06/13/19 06/13/19 History [Symbicort] Buspirone HCl [Buspar 10mg 10 mg PO TID 06/13/19 06/13/19 History tablet] Clopidogrel Bisulfate [Plavix 75mg 75 mg PO DAILY 06/13/19 06/13/19 History Tab] Lacosamide [Vimpat] 50 mg PO BID 06/13/19 06/13/19 History Lacosamide [Vimpat] 200 mg PO BID 06/13/19 06/13/19 History Trazodone HCl 50 mg PO HS 06/13/19 06/13/19 History Umeclidinium [place] [Incruse 1 inh INHALATION DAILY 06/13/19 06/13/19 History Ellipta] levETIRAcetam [Levetiracetam] 500 mg PO BID 06/13/19 06/13/19 History Enoxaparin Sodium [Lovenox 40 mg SQ DAILY 44 Days #44 syringe 06/16/19 Rx 40mg/0.4mL syringe] Prescriptions/Medication Reconciliation: New Enoxaparin Sodium [Lovenox 40mg/0.4mL syringe] 40 mg SQ DAILY 44 Days #44 syringe Continued albuterol sulfate 90 mcg/actuation aerosol inhaler 2 puff INHALATION Q4-6H PRN 30 Days #6.7 g PRN Reason: shortness of breath or wheezing Umeclidinium [place] [Incruse Ellipta] 1 inh INHALATION DAILY Amlodipine Besylate [Amlodipine 10mg Tab] 10 mg PO DAILY Budesonide/Formoterol Fumarate [Symbicort] 2 puffs IH BID Buspirone HCl [Buspar 10mg tablet] 10 mg PO TID levETIRAcetam [Levetiracetam] 500 mg PO BID Atorvastatin Calcium [Atorvastatin 40mg Tab] 40 mg PO HS Clopidogrel Bisulfate [Plavix 75mg Tab] 75 mg PO DAILY Lacosamide [Vimpat] 200 mg PO BID Lacosamide [Vimpat] 50 mg PO BID Trazodone HCl 50 mg PO HS - Problem Reconciliation Problems Reviewed?: Yes
[2019-06-16 09:20] LABS: Anion Gap 11.2 mEq/L (5-15); Calcium 7.8 mg/dL (8.5-10.1)
--- NOTE | 2019-06-18 14:36 | Electrocardiograph Report ---
APPROVED REPORT Exam: Resting ECG HR:85 bpm ECG Measurements Heart Rate 85 AXES WV 188 P 69 QRSd 108 QRS -29 QT 360 T82 QTc 428 <Conclusion> Normal sinus rhythm Inferior infarct, age undetermined Anterior infarct, age undetermined Abnormal ECG Electronically signed by : Luis Elliott, 06/18/2019 14:35:23
--- NOTE | 2019-06-18 14:37 | Electrocardiograph Report ---
APPROVED REPORT Exam: Resting ECG HR:94 bpm ECG Measurements Heart Rate 94 AXES VA 206 P 67 QRSd 92 QRS -9 QT 350 T77 QTc 437 <Conclusion> Normal sinus rhythm Isolated Q in iii - old finding Poor r wave progression - old finding Abnormal ECG Electronically signed by : Luis Elliott, 06/18/2019 14:36:56
== END 2019-06-16 12:30 | DRG 470 ==
LOC: ER 06:22 → 2ND 08:02
PROVIDERS: ADMIT Emergency Medicine; ATTEND Emergency Medicine
CPT/HCPCS: 36415; 71010; 71045; 73502; 80048; 80053; 80061; 81001; 82803; 83605; 83735; 84484; 85007; 85014; 85018; 85025; 85651; 86140; 86850; 86870; 87040; 87070; 87077; 87186; 87205; 87275; 87276; 93005; 93308; 94640; 94761; 96374; 96375; 97110; 97116; 97161; 97165; 97530; 97535; 99285; C1713; C1776; J2405; J3370; P9016; P9047

== ENCOUNTER 2019-06-23 15:25 | Inpatient (IN) ==
--- NOTE | 2019-06-23 15:36 | Emergency Department Note ---
ED Disposition Clinical Impression: Generalized weakness, Anxiety, History of total left hip arthroplasty, Acute gastrointestinal bleeding, Symptomatic anemia Insomnia Qualifiers: Insomnia type: unspecified Qualified Code(s): G47.00 - Insomnia, unspecified Disposition: Admitted As Inpatient Condition on Discharge: Serious (Stable) Time of Disposition: 19:30 - Critical Care Critical Care Time: Yes Attestation: On , the high probability of a clinically significant, sudden or life threatening deterioration of the following system(s) required my full and direct attention, intervention and personal management. The time I documented below is in addition to time spent performing reported procedures but includes the following listed in this critical care notation. Total Critical Care Time: 60 Vital system(s) involved:: Shock (Hemorrhage) My critical care processes included: Assessment & monitoring of V/S, Initial and Re-exams, Data Review/Interpretation, Coordinating Care, Medication Orders and management, Documentation Medical Decision Making - Medical Records Medical records reviewed: Yes: I reviewed the patient's medical records. - Jose Inquiry Pt receiving controlled substance: No Jose was queried for this patient: No Vital Signs: 06/23/19 15:28 Temperature 98.1 F Temperature Source Oral Pulse Rate [Left Radial] 87 Respiratory Rate 18 Blood Pressure [Left Arm] 105/40 L Blood Pressure Mean [Left Arm] 61 Blood Pressure Source [Left Arm] Automatic Cuff Blood Pressure Position [Left Arm] Sitting 02 Sat by Pulse Oximetry 97 Oxygen Delivery Method Room Air - Lab Data Lab results reviewed: Yes: I reviewed the patient's lab results. Lab Results 06/23/19 14:40: WBC 12.3 H, RBC 1.99 L*, Hgb 5.9 L*, Hct 18.7 L*, MCV 93.9, MCH 29.0, MCHC 30.9 L, RDW 14.2, Plt Count 407, MPV 7.8, Neut % (Auto) 81.8 H, Lymph % (Auto) 11.9, [place] % (Auto) 5.0, Eos % (Auto) 1.1, Baso % (Auto) 0.2, Neut # (Auto) 10.1 H, Lymph # (Auto) 1.5, [place] # (Auto) 0.6, Eos # (Auto) 0.1, Baso # (Auto) 0.0 06/23/19 14:40: Sodium 139, Potassium 4.4, Chloride 108 H, Carbon Dioxide 25, Anion Gap 10.4, BUN 38 H, Creatinine 1.01, Estimated Creat Clear 87, Estimated GFR 76, Est GFR ( Amer) 92, Glucose 121 H, Calcium 7.2 L, Total Bilirubin 0.2, AST 20, ALT 23, Alkaline Phosphatase 63, Troponin I 0.05, Total Protein 4.7 L D, Albumin 2.1 L, Globulin 2.6, Albumin/Globulin Ratio 0.8 L, Lipase 165 06/23/19 14:40: Magnesium 1.8, TSH 0.60 06/23/19 16:30: Lactate 1.3 06/23/19 16:30: Blood Type O Positive, Antibody Screen Positive, Crossmatch (AHG) See Detail 06/23/19 18:49: Stool Occult Blood Positive A 06/23/19 18:50: Hgb 5.2 L*, Hct 16.7 L* Result diagrams: 06/23/19 18:50 06/23/19 14:40 Orders (Tests/Meds): ED MEDICATIONS Generic Name Dose Route Start Last Admin Trade Name Freq PRN Reason Stop Dose Admin Sodium Chloride 250 mls @ 25 mls/hr 06/23/19 16:00 Sod Chlor 0.9% 250ml Bag IV 06/24/19 15:59 .Q10H LEONIDAS Octreotide Acetate 600 mcg/ 256 mls @ 10.667 mls/hr 06/23/19 18:45 Sodium Chloride IV 07/23/19 18:44 .Q24H LEONIDAS 25 MCG/HR Sodium Chloride 1,000 mls @ 999 mls/hr 06/23/19 19:04 06/23/19 19:18 Sod Chlor 0.9% 1000ml Bag IV 06/23/19 20:04 999 mls/hr .Q1H1M ONE Administration Sodium Chloride 1,000 mls @ 999 mls/hr 06/23/19 19:05 Sod Chlor 0.9% 1000ml Bag IV 06/23/19 20:05 .Q1H1M ONE Sodium Chloride 1,000 mls @ 75 mls/hr 06/23/19 19:45 Sod Chlor 0.9% 1000ml Bag IV 07/23/19 19:44 .[id number] LEONIDAS Lorazepam 1 mg 06/23/19 19:31 Ativan 2mg/Ml Vial IV 07/23/19 19:30 Q4HP PRN Agitation Ondansetron HCl 4 mg 06/23/19 19:31 Zofran 4mg/2ml Vial IV 07/23/19 19:30 Q6HP PRN Nausea Pantoprazole Sodium 40 mg 06/23/19 21:00 Protonix 40mg Vial IV 07/23/19 20:59 HS LEONIDAS Sodium Chloride 10 ml 06/23/19 17:04 06/23/19 17:07 Rad-Saline Flush 10ml Syringe IV 07/23/19 17:03 10 ml NEEDED PRN Administration Maintain IV Site Sodium Chloride 10 ml 06/23/19 17:06 Rad-Saline Flush 10ml Syringe IV 07/23/19 17:05 NEEDED PRN Maintain IV Site Sodium Chloride 10 ml 06/23/19 18:55 Sodium Chloride 0.9% 10ml Vial IV 07/23/19 18:54 NEEDED PRN dilute protonix Discontinued Medications Generic Name Dose Route Start Last Admin Trade Name Freq PRN Reason Stop Dose Admin Octreotide Acetate 50 mcg/ 50.5 mls @ 101 mls/hr 06/23/19 18:46 06/23/19 19:32 Sodium Chloride IV 06/23/19 18:47 101 mls/hr ONCE ONE Administration Iopamidol 75 ml 06/23/19 17:04 06/23/19 17:07 [id number]; 75ml Vial IV 06/23/19 17:05 75 ml ONCE ONE Administration Protocol Iopamidol 75 ml 06/23/19 17:06 [id number]; 75ml Vial IV 06/23/19 17:07 ONCE ONE Protocol Pantoprazole Sodium 40 mg 06/23/19 18:55 06/23/19 19:18 Protonix 40mg Vial IV 06/23/19 18:56 40 mg ONCE ONE Administration ORDERS Category Date Time Status Antibody Identification Stat [facility] 06/23/19 16:30 Received Blood transfusion [Red Blood Cells] Stat [facility] 06/23/19 16:30 Results Type and Screen Stat [facility] 06/23/19 16:[address] angio abdomen pelvis Stat Cat Scan 06/23/19 19:[address] hip LT w con Stat Cat Scan 06/23/19 16:08 Taken Complete Blood Count Auto Diff [facility] 06/24/19 06:00 Ordered Comprehensive Metabolic Panel [facility] 06/24/19 06:00 Ordered Urinalysis and Microscopic Stat Lab 06/23/19 15:34 Ordered - Radiology Data #1 Image(s): Chest Image Reviewed: Yes I reviewed the patient's radiology image My preliminary report: No free air, effusion or infiltrates. Chronic bronchial interstitial changes noted. - ECG Data Tracing #1 I reviewed this ECG and interpreted as documented below: (EKG at 4:18 PM showed a normal sinus rhythm with a rate of 88 bpm and inferior infarct changes (age undetermined).) Medical Decision Narrative: 18:48 Patient initially evaluated and worked up. EKG was normal without acute changes. Chest x-ray showed chronic changes but no acute changes. Greening labs were performed. Patient was found to be anemic with a hemoglobin and hematocrit of 5.9 and 18.7. We contacted orthopedist Dr. Avila the patient just left the hospital last Wednesday. He asked that we obtain a CT of his left hip with IV contrast. CT report was delayed as x-ray did not scented to radiology. I have just received the report which shows left total hip replacement, no evidence of acute fracture, and no evidence of malalignment or dislocation. Patient needed to have a bowel movement and upon moving his bowels patient had a large loose dark-colored loose stool. In light of this I have ordered octreotide IV push and an IV drip. Blood for transfusion was ordered immediately after getting the H&H back. Patient has antibodies present in his blood is coming from an outside facility due to cross-matching difficulties due to the antibodies. Time I have paged Dr. Cates who is on-call for this patient's PCP Dr. Shepherd. I will also contact the orthopedist and inform him of the CT report. I have also ordered Protonix 40 mg IV push. 19:02 I discussed the patient's case with Dr. Cates who is on-call for Dr. Shepherd and he is agreed to accept patient's care/admission. He asked that I contact the surgeon cleaning professional regarding this patient. We have paged surgeon Dr. Smith and I am awaiting his call back. 19:08 I discussed case with surgeon Dr. Smith recommended that this patient be transferred to in [place]. We are now in the process of contacting the ER through their transfer service. Repeat is now H/H 5.2 & 16.7. 19:16 contacted the ER in [facility] and spoke with her ER physician who informed me that they are on complete diversion except for trauma. 19:28 Dr. Smith notified that [facility] is on divert. I sent a order CT angiogram of the patient's abdomen and pelvis. This is been a ordered and is pending at this time. Dr. Smith dated he will come and see the patient here at the hospital once this CT has been performed. I have discussed the patient's work- up results, diagnosis and care plan at great length with the patient and also his sister at bedside here with him. They understand, agree and all questions have been answered. Orders will now be written to place patient in ICU. I will also discuss patient's case with Dr. Lamar at 20:[address] will be pending as well as the surgeons evaluation. Pt and daughter aware. General Adult HPI - General Chief complaint: Nausea/Vomiting/Diarrhea Stated complaint: NAUSEA Time Seen by Provider: 06/23/19 15:25 Mode of Arrival: EMS Source of Information: Patient Limitations: No Limitations - History of Present Illness HPI narrative: Patient is here in emergency room from local extended care facility with the patient has been since last Wednesday. Patient had broke his hip and had subsequent left hip repair by Dr. Avila. He was discharged out of this hospital on Wednesday to the assisted where he is undergoing short-term placement for rehab. Patient is now here to the ER complaining of a generalized weakness that is been increasing over the past several days. Patient states he is not really slept well since he got to the facility and he is not had a good appetite so therefore has not been eating much. He has had an occasional cough. No chest pain, shortness of breath, abdominal pain. Normal bowel movements without blood or dark stools. No extremity pain. No headaches no recent falls since his discharge from this hospital. No other complaints. - Related Data Home Medications Medication Instructions Recorded Confirmed Amlodipine Besylate [Amlodipine 10 mg PO DAILY 06/13/19 06/13/19 10mg Tab] Atorvastatin Calcium [Atorvastatin 40 mg PO HS 06/13/19 06/13/19 40mg Tab] Budesonide/Formoterol Fumarate 2 puffs IH BID 06/13/19 06/13/19 [Symbicort 160-4.5 Mcg Inhaler] Buspirone HCl [Buspar 10mg 10 mg PO TID 06/13/19 06/13/19 tablet] Clopidogrel Bisulfate [Plavix 75mg 75 mg PO DAILY 06/13/19 06/13/19 Tab] Lacosamide [Vimpat] 50 mg PO BID 06/13/19 06/13/19 Lacosamide [Vimpat] 200 mg PO BID 06/13/19 06/13/19 Trazodone HCl 50 mg PO HS 06/13/19 06/13/19 Umeclidinium [place] [Incruse 1 inh INHALATION DAILY 06/13/19 06/13/19 Ellipta] levETIRAcetam [Levetiracetam] 500 mg PO BID 06/13/19 06/13/19 Previous Rx's Medication Instructions Recorded albuterol sulfate 90 mcg/actuation 2 puff INHALATION Q4-6H PRN 30 01/02/19 aerosol inhaler Days #6.7 g Enoxaparin Sodium [Lovenox 40 mg SQ DAILY 44 Days #44 syringe 06/16/19 40mg/0.4mL syringe] Ferrous Sulfate [Ferrous Sulfate 325 mg PO DAILY #30 tab 06/16/19 325mg Tablet] Allergies Allergy/AdvReac Type Severity Reaction Status Date / Time No Known Allergies Allergy Verified 02/07/19 11:22 [facility] History - Hepatitis A Screen Drug use history?: No Attestation statement:: This patient has been screened for Hepatitis A risk factors. I have reviewed the patient's past medical history: Yes Medical History: Reports:: Anxiety, Cerebrovascular Accident, Hyperlipidemia, Hypertension, Myocardial Infarction Denies:: Cancer, Diabetes Mellitus Type 1, Diabetes Mellitus Type 2, MRSA, Seizures Other Medical History: Reports: Anemia. Denies: Blood Transfusion Reaction Comment: hep A Other Surgeries: Yes: Other Amputation: No Fractures: No Comment: Brain surgery to remove a blood clot, Stent was placed. - Social History Smoking Status: Current every day smoker Tobacco Type: cigarettes # Packs/Day (cigarettes): 1 Alcohol Intake: never Substance Use Type: marijuana Occupational Status: disabled Housing: house Household Members: none - Psychiatric History Pschychiatric History:: Reports:: Anxiety Family Hx:: No significant family history ROS Obtained: Yes All systems reviewed & no additional complaints - Constitutional Constitutional: Reports system reviewed and no additional complaints, except as docu, Reports as per HPI, Reports difficulty sleeping (for 1 week), Reports poor appetite (for 1 week), Reports weakness (generalized) - Eyes Eyes: Reports system reviewed and no additional complaints, except as docu - ENT Ears, Nose, Mouth, and Throat: Reports system reviewed and no additional complaints, except as docu - Cardiovascular Cardiovascular: Reports system reviewed and no additional complaints, except as docu, Reports as per HPI, Denies chest pain, Denies dyspnea - Respiratory Respiratory: Yes system reviewed and no additional complaints, except as docu, Yes as per HPI, Yes non-productive cough, No dyspnea - Gastrointestinal Gastrointestingal: Reports: system reviewed and no additional complaints, except as docu - Genitourinary Male Genitourinary: Reports system reviewed and no additional complaints, except as docu - Musculoskeletal Musculoskeletal: Reports system reviewed and no additional complaints, except as docu, Reports as per HPI - Integumentary/Breasts Skin/Breast: Reports system reviewed and no additional complaints, except as docu - Neurologic Neurologic: Reports system reviewed and no additional complaints, except as docu, Reports as per HPI, Denies abnormal gait, Denies dizziness, Denies frequent falls, Denies headache(s), Denies lack of coordination, Denies sensory deficit, Reports weakness (generalized) - Endocrine Endocrine: Reports system reviewed and no additional complaints, except as docu - Hematologic/Lymphatic Henatologic/Lymphatic: Reports system reviewed and no additional complaints, except as docu - Allergic/Immunologic Allergic/Immunologic: Reports system reviewed and no additional complaints, except as docu Physical Exam - General General appearance: alert, in no apparent distress - Head Head exam: atraumatic, normocephalic, normal inspection - Eye Eye exam: Present: normal appearance, PERRL, EOMI - ENT ENT exam: Present: mucous membranes moist, other (No otic or nasal discharge.) - Neck Neck exam: Present: trachea midline - Chest Chest inspection: Present: normal inspection, symmetric chest wall rise - Respiratory Respiratory exam: Present: normal lung sounds bilaterally. Absent: respiratory distress, wheezes - Cardiovascular Cardiovascular exam: Present: regular rate, normal heart sounds. Absent: systolic murmur, rubs, gallop, clicks - Abdominal Exam Abdominal exam: Present: soft, normal bowel sounds. Absent: distention, tenderness, guarding, rebound, rigidity, Driscoll's sign, tenderness at McBurney's Point - Extremities Exam Extremities exam: Present: full ROM, normal capillary refill, other (Pelvis stable. ). Absent: pedal edema - Neurological Exam Neurological exam: Present: alert, oriented X3, CN II-XII intact - Psychiatric Psychiatric exam: Present: normal affect, normal mood - Skin Skin exam: Present: warm, dry, intact, other (Healthy appearing cicatrix lateral left hip area.). Absent: rash, diaphoresis
[2019-06-23 15:45] LABS: Basophils % 0.2 % (0.1-2.0); Eosinophils # 0.1 K/mm3 (0.0-0.4); Eosinophils % 1.1 % (0.1-12.0); Lymphocytes # 1.5 K/mm3 (0.7-4.5); Lymphocytes % 11.9 % (10-50); Mean Corpuscular HGB Conc 30.9 g/dL (31.8-35.4); Mean Corpuscular Volume 93.9 fl (80-94); Mean Platelet Volume 7.8 fl (7.4-10.4); Monocytes # 0.6 K/mm3 (0.1-1.0); Neutrophils # 10.1 K/mm3 (1.8-7.8); Neutrophils % 81.8 % (37.0-80.0); Platelet Count 407 K/mm3 (142-424); Red Cell Distribution Width 14.2 % (11.5-17.5); White Blood Count 12.3 K/mm3 (4.8-10.8)
[2019-06-23 15:51] LABS: Red Blood Count 1.99 M/mm3 (4.60-6.20)
[2019-06-23 15:52] LABS: Hematocrit 18.7 % (42.0-52.0); Hemoglobin 5.9 g/dL (14.1-18.0)
[2019-06-23 16:02] LABS: Albumin Level 2.1 gm/dL (3.4-5.0); Albumin/Globulin Ratio 0.8 (1.1-1.8); Anion Gap 10.4 mEq/L (5-15); Bilirubin,Total 0.2 mg/dL (0.2-1.0); Calcium 7.2 mg/dL (8.5-10.1); Globulin 2.6 gm/dl (1.3-3.2); Total Protein,Serum 4.7 gm/dL (6.4-8.2)
[2019-06-23 16:07] LABS: Thyroid Stimulating Hormone 0.6 uIU/ml (0.358-3.740)
--- NOTE | 2019-06-23 18:39 | Electrocardiograph Report ---
APPROVED REPORT Exam: Resting ECG HR:88 bpm ECG Measurements Heart Rate 88 AXES KS 150 P 64 QRSd 88 QRS 16 QT 374 T75 QTc 452 <Conclusion> Normal sinus rhythm Consider Inferior infarct,Old Abnormal ECG Electronically signed by : Lucas Aleman, 06/23/2019 18:38:46
[2019-06-23 19:09] LABS: Hematocrit 16.7 % (42.0-52.0)
[2019-06-23 19:17] LABS: Hemoglobin 5.2 g/dL (14.1-18.0)
[2019-06-23 19:57] LABS: Activated Partial Thrombo Time 29.9 seconds (23.6-34.0); INR 1.1 (0.9-1.1); Prothrombin Time 11.4 seconds (9.4-11.8)
--- NOTE | 2019-06-23 22:59 | History & Physical Report ---
*Admission Date: 06/23/19 *Chief complaint: Weakness *History of present illness: 58-year-old male with history of stroke was brought to the emergency department from a detention facility due to weakness and agitation. Patient later reported having a large amount of blood in his stool the day prior to admission (June 22). Patient underwent work-up in the emergency department and while he had no abdominal tenderness he did pass a large stool with blood in it. Blood was described to me as dark and later maroon. Nursing staff is reported blood was red. Nonetheless his hemoglobin was found to be 5.9 and while in the emergency department decreased to 5.2. Patient had been hospitalized at this facility approximately 2 weeks ago for a hip fracture that that was successfully repaired. His discharge hemoglobin was 8.9. Patient has been on Lovenox at 40 mg subcu daily for DVT prophylaxis and he takes Plavix 75 mg for his history of stroke. Patient has never had a colonoscopy and reports no prior history of GI bleed. [facility] staff was told that facility is on diversion. Surgical service was contacted and CT angiogram was requested of the abdomen which report indicates is unremarkable. At present patient is awaiting blood transfusion of 4 units of blood have been typed and crossed. Due to antibodies that the patient has type and crossmatch takes longer than usual. At the time of this dictation the blood bank is told us that it could be 3 to 36 hours. [facility] History I have reviewed the patient's past medical history: Yes Medical History: Reports:: Anxiety, Cerebrovascular Accident, Hyperlipidemia, Hypertension, Myocardial Infarction, Seizures (Last seizure was 6 years ago) Denies:: Cancer, Diabetes Mellitus Type 1, Diabetes Mellitus Type 2, MRSA *Have you ever received a pneumonia vaccine?: No *Have you received a flu vaccine this season?: Yes Other Medical History: Reports: Anemia. Denies: Blood Transfusion Reaction Laterality Cases: Left: Total Hip Replacement Other Surgeries: Yes: Other Amputation: No Fractures: No - *Social History Educational Level: Attended College Smoking Status: Current every day smoker Tobacco Type: cigarettes # Packs/Day (cigarettes): 1 Alcohol Intake: former Substance Use Type: marijuana *Occupational Status:: disabled Housing: assisted living facility Household Members: none *Travel in the last 8 weeks: None - Psychiatric History Pschychiatric History:: Reports:: Anxiety Family Hx:: Coronary Artery Disease Review of Systems - Constitutional Reports fatigue, Reports lack of energy, Reports malaise, Reports weakness - Eyes Denies blurry vision - *Cardiovascular Denies chest pain - *Respiratory Denies change in phlegm color, Denies chest congestion - *Gastrointestinal Reports bright, red blood in stools, Denies abdominal pain - *Genitourinary Reports difficulty urinating - *Musculoskeletal Denies abnormal walking - *Neurologic Reports weakness (generalized), Denies abnormal walking, Denies dizziness, Denies frequent falls, Denies headache(s), Denies lack of coordination, Denies sensory deficit Meds Home Medications Medication Instructions Recorded Confirmed Type albuterol sulfate 90 mcg/actuation 2 puff INHALATION Q4-6H PRN 30 01/02/19 06/13/19 Rx aerosol inhaler Days #6.7 g Amlodipine Besylate [Amlodipine 10 mg PO DAILY 06/13/19 06/13/19 History 10mg Tab] Atorvastatin Calcium [Atorvastatin 40 mg PO HS 06/13/19 06/13/19 History 40mg Tab] Budesonide/Formoterol Fumarate 2 puffs IH BID 06/13/19 06/13/19 History [Symbicort 160-4.5 Mcg Inhaler] Buspirone HCl [Buspar 10mg 10 mg PO TID 06/13/19 06/13/19 History tablet] Clopidogrel Bisulfate [Plavix 75mg 75 mg PO DAILY 06/13/19 06/13/19 History Tab] Lacosamide [Vimpat] 50 mg PO BID 06/13/19 06/13/19 History Lacosamide [Vimpat] 200 mg PO BID 06/13/19 06/13/19 History Trazodone HCl 50 mg PO HS 06/13/19 06/13/19 History Umeclidinium [place] [Incruse 1 inh INHALATION DAILY 06/13/19 06/13/19 History Ellipta] levETIRAcetam [Levetiracetam] 500 mg PO BID 06/13/19 06/13/19 History Enoxaparin Sodium [Lovenox 40 mg SQ DAILY 44 Days #44 syringe 06/16/19 Rx 40mg/0.4mL syringe] Ferrous Sulfate [Ferrous Sulfate 325 mg PO DAILY #30 tab 06/16/19 Rx 325mg Tablet] Allergies Allergy/AdvReac Type Severity Reaction Status Date / Time No Known Allergies Allergy Verified 02/07/19 11:22 Exam Vital signs and Labs for Last 24 Hours: Temp Pulse Resp BP Pulse Ox 98.1 F 100 H 22 94/34 L 97 06/23/19 20:15 06/23/19 20:15 06/23/19 22:03 06/23/19 22:07 06/23/19 15:28 Laboratory Results - last 24 hr 06/23/19 14:40: WBC 12.3 H, RBC 1.99 L*, Hgb 5.9 L*, Hct 18.7 L*, MCV 93.9, MCH 29.0, MCHC 30.9 L, RDW 14.2, Plt Count 407, MPV 7.8, Neut % (Auto) 81.8 H, Lymph % (Auto) 11.9, [place] % (Auto) 5.0, Eos % (Auto) 1.1, Baso % (Auto) 0.2, Neut # (Auto) 10.1 H, Lymph # (Auto) 1.5, [place] # (Auto) 0.6, Eos # (Auto) 0.1, Baso # (Auto) 0.0 06/23/19 14:40: Sodium 139, Potassium 4.4, Chloride 108 H, Carbon Dioxide 25, Anion Gap 10.4, BUN 38 H, Creatinine 1.01, Estimated Creat Clear 87, Estimated GFR 76, Est GFR ( Amer) 92, Glucose 121 H, Calcium 7.2 L, Total Bilirubin 0.2, AST 20, ALT 23, Alkaline Phosphatase 63, Troponin I 0.05, Total Protein 4.7 L D, Albumin 2.1 L, Globulin 2.6, Albumin/Globulin Ratio 0.8 L, Lipase 165 06/23/19 14:40: Magnesium 1.8, TSH 0.60 06/23/19 16:30: Lactate 1.3 06/23/19 16:30: Blood Type O Positive, Antibody Screen Positive, Crossmatch (AHG) See Detail 06/23/19 18:49: Stool Occult Blood Positive A 06/23/19 18:50: Hgb 5.2 L*, Hct 16.7 L* 06/23/19 18:50: PT 11.4, INR 1.10, APTT 29.9 I & O for Last 24 hours: Intake & Output 06/21/19 06/22/19 06/23/19 06/24/19 11:59 11:59 11:59 11:59 Intake Total 1999 Balance 1999 Weight 202 lb 5 oz Narrative: Patient is pale. Patient is restless but does follow commands. Nasal cannula is in place. Pupils are reactive. Oropharynx is moist. Neck is without lymphadenopathy. Lungs are clear. Heart has a regular rate and rhythm. Abdomen is soft and nontender. Bowel sounds are present. Extremities are warm to the touch. Neurologically the patient has intact motor and sensory functions. He is oriented to person and place. Assessment and Plan (1) Acute gastrointestinal bleeding Current visit: Yes Status: Acute Category: Medical Code(s): K92.2 - Gastrointestinal hemorrhage, unspecified (2) History of total left hip arthroplasty Current visit: Yes Status: Acute Category: Surgical Code(s): Z96.642 - Presence of left artificial hip joint (3) Symptomatic anemia Current visit: Yes Status: Acute Category: Medical Code(s): D64.9 - Anemia, unspecified (4) Anemia associated with acute blood loss Current visit: No Status: Acute Category: Medical Code(s): D62 - Acute posthemorrhagic anemia - Assessment and plan all Dx Assessment and Plan for all problems:: 1. Patient is on octreotide and Protonix drip 2. Surgical evaluation 3. Await blood transfusion
--- NOTE | 2019-06-23 23:37 | Consult Report ---
*Admission Date: 06/23/19 *Reason for consult:: Acute GI Bleed. *History of present illness: Mr. Beasley is a 58-year-old male that presents to [facility] with complaints of blood per rectum. Reports blood per rectum on June 22, 2019. Self-limited. Mild abdominal cramping. Presents to [facility] with continued blood per rectum on June 23, 2019. Currently resides in nursing facility as part of a rehabilitation program after hip replacement approximately 1 to 2 weeks ago. Character blood has been noted to be dark to maroon. Painless. No hematemesis. No fever or chills. Prior history CVA for which patient has been on Plavix up into the point of his hip replacement. Since hip replacement, Mr. Beasley has been on DVT prophylaxis with subcutaneous Lovenox. Minimal confusion noted. Type and cross requested with 4 unit packed red blood cell transfusion; delayed secondary to antibodies and difficulty with crossmatching blood. Patient has not received transfusion up to this time. Initial request for transfer to tertiary center delayed secondary to divert status at that facility. Two sisters present at bedside; they indicate patient is pale and mildly confused. No prior colonoscopy. No prior abdominal surgery. Review of Systems - Review of Systems Review of systems:: pertinent systems reviewed and negative unless documented below - *Neurologic Reports weakness, Denies abnormal walking, Denies dizziness, Denies frequent falls, Denies headache(s), Denies lack of coordination, Denies sensory deficit [facility] History Medical History: Reports:: Anxiety, Cerebrovascular Accident, Hyperlipidemia, Hypertension, Myocardial Infarction, Seizures (Last seizure was 6 years ago) Denies:: Cancer, Diabetes Mellitus Type 1, Diabetes Mellitus Type 2, MRSA *Have you ever received a pneumonia vaccine?: No *Have you received a flu vaccine this season?: Yes Other Medical History: Reports: Anemia. Denies: Blood Transfusion Reaction Laterality Cases: Left: Total Hip Replacement Other Surgeries: Yes: Other Amputation: No Fractures: No - *Social History Educational Level: Attended College Smoking Status: Current every day smoker Tobacco Type: cigarettes # Packs/Day (cigarettes): 1 Alcohol Intake: former Substance Use Type: marijuana *Occupational Status:: disabled Housing: assisted living facility Household Members: none *Travel in the last 8 weeks: None - Psychiatric History Pschychiatric History:: Reports:: Anxiety Family Hx:: Coronary Artery Disease Meds Home Medications Medication Instructions Recorded Confirmed Type albuterol sulfate 90 mcg/actuation 2 puff INHALATION Q4-6H PRN 30 01/02/19 06/13/19 Rx aerosol inhaler Days #6.7 g Amlodipine Besylate [Amlodipine 10 mg PO DAILY 06/13/19 06/13/19 History 10mg Tab] Atorvastatin Calcium [Atorvastatin 40 mg PO HS 06/13/19 06/13/19 History 40mg Tab] Budesonide/Formoterol Fumarate 2 puffs IH BID 06/13/19 06/13/19 History [Symbicort 160-4.5 Mcg Inhaler] Buspirone HCl [Buspar 10mg 10 mg PO TID 06/13/19 06/13/19 History tablet] Clopidogrel Bisulfate [Plavix 75mg 75 mg PO DAILY 06/13/19 06/13/19 History Tab] Lacosamide [Vimpat] 50 mg PO BID 06/13/19 06/13/19 History Lacosamide [Vimpat] 200 mg PO BID 06/13/19 06/13/19 History Trazodone HCl 50 mg PO HS 06/13/19 06/13/19 History Umeclidinium [place] [Incruse 1 inh INHALATION DAILY 06/13/19 06/13/19 History Ellipta] levETIRAcetam [Levetiracetam] 500 mg PO BID 06/13/19 06/13/19 History Enoxaparin Sodium [Lovenox 40 mg SQ DAILY 44 Days #44 syringe 06/16/19 Rx 40mg/0.4mL syringe] Ferrous Sulfate [Ferrous Sulfate 325 mg PO DAILY #30 tab 06/16/19 Rx 325mg Tablet] Allergies Allergy/AdvReac Type Severity Reaction Status Date / Time No Known Allergies Allergy Verified 02/07/19 11:22 Exam Vital signs and Labs for Last 24 Hours: Temp Pulse Resp BP Pulse Ox 98.1 F 100 H 22 94/34 L 97 06/23/19 20:15 06/23/19 20:15 06/23/19 22:03 06/23/19 22:07 06/23/19 15:28 Laboratory Results - last 24 hr 06/23/19 14:40: WBC 12.3 H, RBC 1.99 L*, Hgb 5.9 L*, Hct 18.7 L*, MCV 93.9, MCH 29.0, MCHC 30.9 L, RDW 14.2, Plt Count 407, MPV 7.8, Neut % (Auto) 81.8 H, Lymph % (Auto) 11.9, [place] % (Auto) 5.0, Eos % (Auto) 1.1, Baso % (Auto) 0.2, Neut # (Auto) 10.1 H, Lymph # (Auto) 1.5, [place] # (Auto) 0.6, Eos # (Auto) 0.1, Baso # (Auto) 0.0 06/23/19 14:40: Sodium 139, Potassium 4.4, Chloride 108 H, Carbon Dioxide 25, Anion Gap 10.4, BUN 38 H, Creatinine 1.01, Estimated Creat Clear 87, Estimated GFR 76, Est GFR ( Amer) 92, Glucose 121 H, Calcium 7.2 L, Total Bilirubin 0.2, AST 20, ALT 23, Alkaline Phosphatase 63, Troponin I 0.05, Total Protein 4.7 L D, Albumin 2.1 L, Globulin 2.6, Albumin/Globulin Ratio 0.8 L, Lipase 165 06/23/19 14:40: Magnesium 1.8, TSH 0.60 06/23/19 16:30: Lactate 1.3 06/23/19 16:30: Blood Type O Positive, Antibody Screen Positive, Crossmatch (AHG) See Detail 06/23/19 18:49: Stool Occult Blood Positive A 06/23/19 18:50: Hgb 5.2 L*, Hct 16.7 L* 06/23/19 18:50: PT 11.4, INR 1.10, APTT 29.9 06/23/19 23:00: Urine Color Yellow, Urine Appearance Clear, Urine pH 5.5, Ur Specific [place] 1.010, Urine Protein Negative, Urine Glucose (UA) Negative, Urine Ketones Negative, Urine Blood Negative, Urine Nitrate Negative, Urine Bilirubin Negative, Urine Urobilinogen 0.2, Ur Leukocyte Esterase Negative, Urine RBC 3-5, Urine WBC 3-5, Ur Squamous Epith Cells Occasional, Urine Bacteria None I & O for Last 24 hours: Intake & Output 06/21/19 06/22/19 06/23/1906/24/20 11:59 11:59 11:59 11:59 Intake Total 1999 Balance 1999 Weight 91.767 kg - Constitutional moderate distress, diaphoretic, agitated - *Routine Respiratory Exam Present: CTA bilaterally - *Routine Cardiovascular Exam Present: tachycardia - *Routine Abdominal Exam Present: soft - *Routine Rectal Exam Visual: Present: bloody stool Digital: Present: blood Prostate: Present: enlargement, tenderness Results - Labs 06/23/19 18:50 06/23/19 14:40 Laboratory Results - last 24 hr 06/23/19 14:40: WBC 12.3 H, RBC 1.99 L*, Hgb 5.9 L*, Hct 18.7 L*, MCV 93.9, MCH 29.0, MCHC 30.9 L, RDW 14.2, Plt Count 407, MPV 7.8, Neut % (Auto) 81.8 H, Lymph % (Auto) 11.9, [place] % (Auto) 5.0, Eos % (Auto) 1.1, Baso % (Auto) 0.2, Neut # (Auto) 10.1 H, Lymph # (Auto) 1.5, [place] # (Auto) 0.6, Eos # (Auto) 0.1, Baso # (Auto) 0.0 06/23/19 14:40: Sodium 139, Potassium 4.4, Chloride 108 H, Carbon Dioxide 25, Anion Gap 10.4, BUN 38 H, Creatinine 1.01, Estimated Creat Clear 87, Estimated GFR 76, Est GFR ( Amer) 92, Glucose 121 H, Calcium 7.2 L, Total Bilirubin 0.2, AST 20, ALT 23, Alkaline Phosphatase 63, Troponin I 0.05, Total Protein 4.7 L D, Albumin 2.1 L, Globulin 2.6, Albumin/Globulin Ratio 0.8 L, Lipase 165 06/23/19 14:40: Magnesium 1.8, TSH 0.60 06/23/19 16:30: Lactate 1.3 06/23/19 16:30: Blood Type O Positive, Antibody Screen Positive, Crossmatch (AHG) See Detail 06/23/19 18:49: Stool Occult Blood Positive A 06/23/19 18:50: Hgb 5.2 L*, Hct 16.7 L* 06/23/19 18:50: PT 11.4, INR 1.10, APTT 29.9 06/23/19 23:00: Urine Color Yellow, Urine Appearance Clear, Urine pH 5.5, Ur Specific [place] 1.010, Urine Protein Negative, Urine Glucose (UA) Negative, Urine Ketones Negative, Urine Blood Negative, Urine Nitrate Negative, Urine Bilirubin Negative, Urine Urobilinogen 0.2, Ur Leukocyte Esterase Negative, Urine RBC 3-5, Urine WBC 3-5, Ur Squamous Epith Cells Occasional, Urine Bacteria None - Imaging CT scan - abdomen: report reviewed CT scan - pelvis: report reviewed Assessment and Plan (1) Acute gastrointestinal bleeding Current visit: Yes Status: Acute Category: Medical Code(s): K92.2 - Gastrointestinal hemorrhage, unspecified (2) History of total left hip arthroplasty Current visit: Yes Status: Acute Category: Surgical Code(s): Z96.642 - Presence of left artificial hip joint (3) Symptomatic anemia Current visit: Yes Status: Acute Category: Medical Code(s): D64.9 - Anemia, unspecified (4) Anemia associated with acute blood loss Current visit: No Status: Acute Category: Medical Code(s): D62 - Acute posthemorrhagic anemia - Assessment and plan all Dx Assessment and Plan for all problems:: 1. Acute GI Bleed. Hemoglobin 5.2. Unable to transfuse secondary to unavailability of crossmatched blood; antibodies noted. Hemodynamically unstable with tachycardia and occasional hypotension. Clinical abdominal examination normal. Clinical anorectal examination with obvious maroon-colored blood on [place] and markedly enlarged prostate. Kor[place] catheter is in place. Clear urine. CTA results noted. Patient has received 1 L bolus and is currently receiving IV fluids at 150 mL/hour. Discussed with [facility]. Transfer requested. Transfer accepted. Plan at this time is to transfer to [facility] as current needs and care exceed availability.
--- NOTE | 2019-06-23 23:39 | Discharge Summary ---
General - General Admission date:: 06/23/19 Discharge date: 06/23/19 HPI HPI: 58-year-old male with history of stroke was [facility] due to weakness and agitation. Patient later reported having a large amount of blood in his stool the day prior to admission (June 22). Patient underwent work-up in the emergency department and while he had no abdominal tenderness he did pass a large stool with blood in it. Blood was described to me as dark and later maroon. Nursing staff is reported blood was red. Nonetheless his hemoglobin was found to be 5.9 and while in the emergency department decreased to 5.2. Patient had been hospitalized at this facility approximately 2 weeks ago for a hip fracture that that was successfully repaired. His discharge hemoglobin was 8.9. Patient has been on Lovenox at 40 mg subcu daily for DVT prophylaxis and he takes Plavix 75 mg for his history of stroke. Patient has never had a colonoscopy and reports no prior history of GI bleed. [facility] was contacted for transfer from the emergency department but ER staff was told that facility is on diversion. Surgical service was contacted and CT angiogram was requested of the abdomen which report indicates is unremarkable. At present patient is awaiting blood transfusion of 4 units of blood have been typed and crossed. Due to antibodies that the patient has type and crossmatch takes longer than usual. At the time of this dictation the blood bank is told us that it could be 3 to 36 hours. Hospital Course Hospital Course: Patient was admitted but showed signs of decompensation. Surgical service evaluated the patient. Transfer was arranged [facility]. Patient was accepted by the medical service but will be sent through the emergency department due to bed availability. Objective Vital signs: Temp Pulse Resp BP Pulse Ox 98.1 F 100 H 22 94/34 L 97 06/23/19 20:15 06/23/19 20:15 06/23/19 22:03 06/23/19 22:07 06/23/19 15:28 Results Labs on day of discharge: Labs from last 24 hours 06/23/19 06/23/19 06/23/19 23:00 18:50 18:50 WBC RBC Hgb 5.2 L* Hct 16.7 L* MCV MCH MCHC RDW Plt Count MPV Neut % (Auto) Lymph % (Auto) [place] % (Auto) Eos % (Auto) Baso % (Auto) Neut # (Auto) Lymph # (Auto) [place] # (Auto) Eos # (Auto) Baso # (Auto) PT 11.4 INR 1.10 APTT 29.9 Sodium Potassium Chloride Carbon Dioxide Anion Gap BUN Creatinine Estimated Creat Clear Estimated GFR Est GFR ( Amer) Glucose Lactate Calcium Magnesium Total Bilirubin AST ALT Alkaline Phosphatase Troponin I Total Protein Albumin Globulin Albumin/Globulin Ratio Lipase TSH Urine Color Yellow Urine Appearance Clear Urine pH 5.5 Ur Specific [place] 1.010 Urine Protein Negative Urine Glucose (UA) Negative Urine Ketones Negative Urine Blood Negative Urine Nitrate Negative Urine Bilirubin Negative Urine Urobilinogen 0.2 Ur Leukocyte Esterase Negative Urine RBC 3-5 Urine WBC 3-5 Ur Squamous Epith Cells Occasional Urine Bacteria None Stool Occult Blood Blood Type Antibody Screen Antibody Identification Crossmatch ([facility]) 06/23/19 06/23/19 06/23/19 18:49 16:30 16:30 WBC RBC Hgb Hct MCV MCH MCHC RDW Plt Count MPV Neut % (Auto) Lymph % (Auto) [place] % (Auto) Eos % (Auto) Baso % (Auto) Neut # (Auto) Lymph # (Auto) [place] # (Auto) Eos # (Auto) Baso # (Auto) PT INR APTT Sodium Potassium Chloride Carbon Dioxide Anion Gap BUN Creatinine Estimated Creat Clear Estimated GFR Est GFR ( Amer) Glucose Lactate Calcium Magnesium Total Bilirubin AST ALT Alkaline Phosphatase Troponin I Total Protein Albumin Globulin Albumin/Globulin Ratio Lipase TSH Urine Color Urine Appearance Urine pH Ur Specific [place] Urine Protein Urine Glucose (UA) Urine Ketones Urine Blood Urine Nitrate Urine Bilirubin Urine Urobilinogen Ur Leukocyte Esterase Urine RBC Urine WBC Ur Squamous Epith Cells Urine Bacteria Stool Occult Blood Positive A Blood Type O Positive Antibody Screen Positive Antibody Identification Pending Crossmatch ([facility]) See Detail 06/23/19 06/23/19 06/23/19 16:30 14:40 14:40 WBC RBC Hgb Hct MCV MCH MCHC RDW Plt Count MPV Neut % (Auto) Lymph % (Auto) [place] % (Auto) Eos % (Auto) Baso % (Auto) Neut # (Auto) Lymph # (Auto) [place] # (Auto) Eos # (Auto) Baso # (Auto) PT INR APTT Sodium 139 Potassium 4.4 Chloride 108 H Carbon Dioxide 25 Anion Gap 10.4 BUN 38 H Creatinine 1.01 Estimated Creat Clear 87 Estimated GFR 76 Est GFR ( Amer) 92 Glucose 121 H Lactate 1.3 Calcium 7.2 L Magnesium 1.8 Total Bilirubin 0.2 AST 20 ALT 23 Alkaline Phosphatase 63 Troponin I 0.05 Total Protein 4.7 L D Albumin 2.1 L Globulin 2.6 Albumin/Globulin Ratio 0.8 L Lipase 165 TSH 0.60 Urine Color Urine Appearance Urine pH Ur Specific [place] Urine Protein Urine Glucose (UA) Urine Ketones Urine Blood Urine Nitrate Urine Bilirubin Urine Urobilinogen Ur Leukocyte Esterase Urine RBC Urine WBC Ur Squamous Epith Cells Urine Bacteria Stool Occult Blood Blood Type Antibody Screen Antibody Identification Crossmatch ([facility]) 06/23/19 14:40 WBC 12.3 H RBC 1.99 L* Hgb 5.9 L* Hct 18.7 L* MCV 93.9 MCH 29.0 MCHC 30.9 L RDW 14.2 Plt Count 407 MPV 7.8 Neut % (Auto) 81.8 H Lymph % (Auto) 11.9 [place] % (Auto) 5.0 Eos % (Auto) 1.1 Baso % (Auto) 0.2 Neut # (Auto) 10.1 H Lymph # (Auto) 1.5 [place] # (Auto) 0.6 Eos # (Auto) 0.1 Baso # (Auto) 0.0 PT INR APTT Sodium Potassium Chloride Carbon Dioxide Anion Gap BUN Creatinine Estimated Creat Clear Estimated GFR Est GFR ( Amer) Glucose Lactate Calcium Magnesium Total Bilirubin AST ALT Alkaline Phosphatase Troponin I Total Protein Albumin Globulin Albumin/Globulin Ratio Lipase TSH Urine Color Urine Appearance Urine pH Ur Specific [place] Urine Protein Urine Glucose (UA) Urine Ketones Urine Blood Urine Nitrate Urine Bilirubin Urine Urobilinogen Ur Leukocyte Esterase Urine RBC Urine WBC Ur Squamous Epith Cells Urine Bacteria Stool Occult Blood Blood Type Antibody Screen Antibody Identification Crossmatch ([facility]) DS: Diagnosis - Discharge Diagnosis (1) Acute gastrointestinal bleeding Status: Acute (2) History of total left hip arthroplasty Status: Acute (3) Symptomatic anemia Status: Acute (4) Anemia associated with acute blood loss Status: Acute Discharge Plan - Patient Discharge Instructions Patient Instructions: Insomnia, Anemia, Anxiety and Panic Attacks (Alternative Therapy), DI for Fatigue, DI for Insomnia, DI for Gastrointestinal Bleeding - Follow up Plan Disposition: Xfer Short-Term Hosp Home Medications: Home Medications Medication Instructions Recorded Confirmed Type albuterol sulfate 90 mcg/actuation 2 puff INHALATION Q4-6H PRN 30 01/02/19 06/13/19 Rx aerosol inhaler Days #6.7 g Amlodipine Besylate [Amlodipine 10 mg PO DAILY 06/13/19 06/13/19 History 10mg Tab] Atorvastatin Calcium [Atorvastatin 40 mg PO HS 06/13/19 06/13/19 History 40mg Tab] Budesonide/Formoterol Fumarate 2 puffs IH BID 06/13/19 06/13/19 History [Symbicort 160-4.5 Mcg Inhaler] Buspirone HCl [Buspar 10mg 10 mg PO TID 06/13/19 06/13/19 History tablet] Clopidogrel Bisulfate [Plavix 75mg 75 mg PO DAILY 06/13/19 06/13/19 History Tab] Lacosamide [Vimpat] 50 mg PO BID 06/13/19 06/13/19 History Lacosamide [Vimpat] 200 mg PO BID 06/13/19 06/13/19 History Trazodone HCl 50 mg PO HS 06/13/19 06/13/19 History Umeclidinium [place] [Incruse 1 inh INHALATION DAILY 06/13/19 06/13/19 History Ellipta] levETIRAcetam [Levetiracetam] 500 mg PO BID 06/13/19 06/13/19 History Enoxaparin Sodium [Lovenox 40 mg SQ DAILY 44 Days #44 syringe 06/16/19 Rx 40mg/0.4mL syringe] Ferrous Sulfate [Ferrous Sulfate 325 mg PO DAILY #30 tab 06/16/19 Rx 325mg Tablet] Prescriptions/Medication Reconciliation: New Octreotide Acetate [Sandostatin 100mcg/mL 1mL ampule] 600 mcg IV .Q24H ampul Pantoprazole Sodium [Protonix 40mg Vial] 80 mg IV .Q10H vial Continued albuterol sulfate 90 mcg/actuation aerosol inhaler 2 puff INHALATION Q4-6H PRN 30 Days #6.7 g PRN Reason: shortness of breath or wheezing Umeclidinium [place] [Incruse Ellipta] 1 inh INHALATION DAILY Amlodipine Besylate [Amlodipine 10mg Tab] 10 mg PO DAILY Budesonide/Formoterol Fumarate [Symbicort 160-4.5 Mcg Inhaler] 2 puffs IH BID Buspirone HCl [Buspar 10mg tablet] 10 mg PO TID levETIRAcetam [Levetiracetam] 500 mg PO BID Ferrous Sulfate [Ferrous Sulfate 325mg Tablet] 325 mg PO DAILY #30 tab Atorvastatin Calcium [Atorvastatin 40mg Tab] 40 mg PO HS Lacosamide [Vimpat] 200 mg PO BID Lacosamide [Vimpat] 50 mg PO BID Trazodone HCl 50 mg PO HS Discontinued Clopidogrel Bisulfate [Plavix 75mg Tab] 75 mg PO DAILY Enoxaparin Sodium [Lovenox 40mg/0.4mL syringe] 40 mg SQ DAILY 44 Days #44 syringe - Problem Reconciliation Problems Reviewed?: Yes
== END 2019-06-24 01:50 | disposition short-term general hospital (02) | DRG 378 ==
LOC: ER 15:25 → 2ND 19:39
PROVIDERS: ADMIT Family Medicine; ATTEND Family Medicine
CPT/HCPCS: 36415; 71010; 71045; 73701; 74174; 80053; 81001; 82272; 83605; 83690; 83735; 84443; 84484; 85014; 85018; 85025; 85610; 85730; 86850; 86870; 93005; 96365; 96367; 96375; 99285; G0328; J2354; J2405; Q9967

== ENCOUNTER → 2019-07-10 10:31 | Outpatient (CLI) | payer MEDICARE, MEDICAID, SELFPAY ==
--- NOTE | 2019-07-10 10:38 | XR_ITS ---
PROCEDURE: XR HIP LT 2-3V W/PELVIS CLINICAL INDICATION: LT total hip, dos 06/13/19 COMPARISON: XR HIP LT 2-3V W/PELVIS from 06/13/2019 FINDINGS: Postoperative change from left hip arthroplasty is noted. No acute fracture or dislocation is apparent. Mild osteoarthritis is noted at the right hip joint. Vascular calcifications are noted IMPRESSION: No acute findings status post total left hip arthroplasty. Mild osteoarthritis right hip. Dictated by: David Kim 07/10/2019 17:14 Electronically signed by David Kim in [place] 07/10/2019 17:14
== END ==
PROVIDERS: PCP Emergency Medicine; Visit Provider Orthopaedic Surgery
DX: Z48.89 Encounter for other specified surgical aftercare (principal); M16.12 Unilateral primary osteoarthritis, left hip
CPT/HCPCS: 73502

== ENCOUNTER → 2019-07-11 12:54 | Outpatient (CLI) | payer MEDICARE, MEDICAID, SELFPAY ==
[2019-07-11 14:13] LABS: Basophils % 0.4 % (0.1-2.0); Eosinophils # 0.2 K/mm3 (0.0-0.4); Eosinophils % 2.9 % (0.1-12.0); Hematocrit 30.8 % (42.0-52.0); Hemoglobin 9.5 g/dL (14.1-18.0); Lymphocytes # 0.9 K/mm3 (0.7-4.5); Lymphocytes % 14.1 % (10-50); Mean Corpuscular HGB Conc 30.9 g/dL (31.8-35.4); Mean Corpuscular Hemoglobin 29.2 pg (27.0-31.2); Mean Corpuscular Volume 94.4 fl (80-94); Mean Platelet Volume 7.4 fl (7.4-10.4); Monocytes # 0.4 K/mm3 (0.1-1.0); Monocytes % 6.7 % (1.7-9.3); Neutrophils # 4.6 K/mm3 (1.8-7.8); Neutrophils % 75.8 % (37.0-80.0); Platelet Count 313 K/mm3 (142-424); Red Blood Count 3.26 M/mm3 (4.60-6.20); Red Cell Distribution Width 16.2 % (11.5-17.5); White Blood Count 6.1 K/mm3 (4.8-10.8)
== END ==
PROVIDERS: Visit Provider Emergency Medicine
DX: D64.9 Anemia, unspecified (principal); Z12.5 Encounter for screening for malignant neoplasm of prostate
CPT/HCPCS: 36415; 85025; G0103

== ENCOUNTER → 2019-07-18 11:45 | Outpatient (CLI) | payer MEDICARE, MEDICAID, SELFPAY ==
[2019-07-18 12:15] LABS: Basophils % 0.5 % (0.1-2.0); Eosinophils # 0.2 K/mm3 (0.0-0.4); Eosinophils % 3.3 % (0.1-12.0); Hematocrit 33.7 % (42.0-52.0); Hemoglobin 10.3 g/dL (14.1-18.0); Lymphocytes # 0.8 K/mm3 (0.7-4.5); Lymphocytes % 13.3 % (10-50); Mean Corpuscular HGB Conc 30.7 g/dL (31.8-35.4); Mean Corpuscular Hemoglobin 28.4 pg (27.0-31.2); Mean Corpuscular Volume 92.6 fl (80-94); Mean Platelet Volume 7.4 fl (7.4-10.4); Monocytes # 0.5 K/mm3 (0.1-1.0); Monocytes % 8.7 % (1.7-9.3); Neutrophils # 4.6 K/mm3 (1.8-7.8); Neutrophils % 74.2 % (37.0-80.0); Platelet Count 303 K/mm3 (142-424); Red Blood Count 3.64 M/mm3 (4.60-6.20); Red Cell Distribution Width 15.2 % (11.5-17.5); White Blood Count 6.1 K/mm3 (4.8-10.8)
== END ==
PROVIDERS: PCP Emergency Medicine; Visit Provider Emergency Medicine
DX: D62 Acute posthemorrhagic anemia (principal)
CPT/HCPCS: 36415; 85025

== ENCOUNTER → 2019-07-28 11:29 | Outpatient (CLI) | payer MEDICARE, SELFPAY | PROVIDERS: Visit Provider Urology | DX: R53.1 Weakness (principal); R97.20 Elevated prostate specific antigen [PSA] | CPT/HCPCS: 87086; 87088; 87186 ==

== ENCOUNTER → 2019-10-23 12:54 | Outpatient (CLI) | payer MEDICARE, SELFPAY ==
--- NOTE | 2019-10-23 13:14 | XR_ITS ---
PROCEDURE: XR HIP LT 2-3V W/PELVIS CLINICAL INDICATION: sp LT DYLON Follow-up hip replacement COMPARISON: XR HIP LT 2-3V W/PELVIS from 07/10/2019 FINDINGS: Status post left hip hemiarthroplasty placement with good alignment and no evidence of orthopedic complications with no significant change IMPRESSION: Good alignment status post left hip hemiarthroplasty placement Dictated by: Tyrell Hirsch MD 10/23/2019 13:58 Electronically signed by Tyrell Hirsch MD in [facility] 10/23/2019 13:58
[2019-10-24 17:19] LABS: Prostate Specific Ag 2.4 ng/mL (0.0-4.0)
== END ==
PROVIDERS: Urology; PCP Emergency Medicine; Visit Provider Orthopaedic Surgery
DX: R97.20 Elevated prostate specific antigen [PSA] (principal); Z48.89 Encounter for other specified surgical aftercare
CPT/HCPCS: 36415; 73502; 84153; 84154

== ENCOUNTER → 2019-12-19 13:48 | Outpatient (POV) | payer MEDICARE, MEDICAID, SELFPAY | PROVIDERS: PCP Emergency Medicine; Visit Provider Physician Assistant | DX: Z00.00 Encounter for general adult medical examination without abnormal findings (principal) ==

== ENCOUNTER → 2020-05-07 12:00 | Outpatient (CLI) | payer MEDICARE, MEDICAID, SELFPAY ==
--- NOTE | 2020-05-07 12:07 | XR_ITS ---
PROCEDURE: XR HIP LT 2-3V W/PELVIS CLINICAL INDICATION: left total hip arthroplasty COMPARISON: CR XR HIP LT 2-3V W/PELVIS from 10/23/2019 FINDINGS: Status post left hip hemiarthroplasty. There is good alignment with no evidence of complications. Overall no significant change from the previous exam. There are mild osteoarthritic changes of the right hip. IMPRESSION: Status post left hip hemiarthroplasty with good alignment Dictated by: Tyrell Hirsch MD 05/07/2020 15:50 Tyrell Hirsch MD in [facility] 05/07/2020 15:50
[2020-05-07 13:09] LABS: Basophils % 0.3 % (0.1-2.0); Eosinophils # 0.2 K/mm3 (0.0-0.4); Eosinophils % 2.2 % (0.1-12.0); Hemoglobin 14.4 g/dL (14.1-18.0); Lymphocytes # 1.3 K/mm3 (0.7-4.5); Lymphocytes % 15.6 % (10-50); Mean Corpuscular HGB Conc 32.7 g/dL (31.8-35.4); Mean Corpuscular Hemoglobin 30.5 pg (27.0-31.2); Mean Corpuscular Volume 93.1 fl (80-94); Mean Platelet Volume 6.9 fl (7.4-10.4); Monocytes # 0.7 K/mm3 (0.1-1.0); Monocytes % 8.3 % (1.7-9.3); Neutrophils # 6.1 K/mm3 (1.8-7.8); Neutrophils % 73.6 % (37.0-80.0); Platelet Count 272 K/mm3 (142-424); Red Blood Count 4.73 M/mm3 (4.60-6.20); Red Cell Distribution Width 13.2 % (11.5-17.5); White Blood Count 8.3 K/mm3 (4.8-10.8)
[2020-05-07 16:36] LABS: Alanine Aminotransferase 27 U/L (12-78); Albumin Level 4.4 g/dl (3.5-5.0); Albumin/Globulin Ratio 1.6 (1.1-1.8); Alkaline Phosphatase 103 U/L (38-126); Anion Gap 12.3 mEq/L (5-15); Aspartate Amino Transferase 27 U/L (17-59); Bilirubin,Total 0.4 mg/dl (0.2-1.3); Blood Urea Nitrogen 20 mg/dl (9-20); Calcium 9.8 mg/dl (8.4-10.2); Carbon Dioxide 33 mmol/L (22.0-30.0); Chloride 100 mmol/L (98-107); Chol/HDL Ratio 2.1 (1-3.5); Cholesterol 118 mg/dl (140-200); Estimated Glomerular Filt Rate 76 ml/min (>60); GFR (African American) 93 ML/MIN (>60); Globulin 2.8 g/dL (1.3-3.2); Glucose 84 mg/dl (74-100); HDL Cholesterol 57 mg/dl (40-60); Potassium 4.3 mmoL/L (3.5-5.1); Sodium 141 mmol/L (136-145); Total Protein,Serum 7.2 g/dl (6.3-8.2); Triglycerides 82 mg/dl (30-150); VLDL Cholesterol 16 mg/dL (0-40)
[2020-05-07 16:47] LABS: Direct LDL Cholesterol 51.94 mg/dL (100-129)
[2020-05-07 16:52] LABS: 25-OH Vitamin D, Total 46.2 ng/mL (30-100)
[2020-05-07 16:53] LABS: T4 (Thyroxine) 9.3 ug/dl (5.53-11.0)
[2020-05-07 17:07] LABS: Thyroid Stimulating Hormone 1.12 uIU/mL (0.465-4.68)
[2020-05-09 13:50] LABS: PSA, Free 0.64 ng/mL; Prostate Specific Ag 4.1 ng/mL (0.0-4.0)
== END ==
PROVIDERS: PCP Emergency Medicine; Visit Provider Nurse Practitioner Family
DX: Z09 Encounter for follow-up examination after completed treatment for conditions other than malignant neoplasm (principal); E78.5 Hyperlipidemia, unspecified; I10 Essential (primary) hypertension; J44.9 Chronic obstructive pulmonary disease, unspecified; R53.1 Weakness; S72.009A Fracture of unspecified part of neck of unspecified femur, initial encounter for closed fracture; E55.9 Vitamin D deficiency, unspecified; R97.20 Elevated prostate specific antigen [PSA]; Z79.899 Other long term (current) drug therapy
CPT/HCPCS: 36415; 73502; 80053; 80061; 82306; 84153; 84154; 84436; 84443; 85025

== ENCOUNTER → 2020-10-25 14:50 | Outpatient (CLI) | payer MEDICARE, SELFPAY ==
[2020-10-27 09:08] LABS: PSA, Free 2.73 ng/mL; Prostate Specific Ag 10.1 ng/mL (0.0-4.0)
== END ==
PROVIDERS: Visit Provider Urology
DX: R97.20 Elevated prostate specific antigen [PSA] (principal)
CPT/HCPCS: 36415; 84153; 84154

== ENCOUNTER → 2021-10-27 13:57 | Outpatient (CLI) | payer MEDICARE, MEDICAID, SELFPAY ==
[2021-10-29 10:47] LABS: PSA, Free 0.91 ng/mL; Prostate Specific Ag 4.7 ng/mL (0.0-4.0)
== END ==
PROVIDERS: PCP Psychiatry & Neurology Neurology; Visit Provider Urology
DX: R97.20 Elevated prostate specific antigen [PSA] (principal)
CPT/HCPCS: 36415; 84153; 84154

== ENCOUNTER 2022-10-16 10:26 | Day surgery (SDC) | payer MEDICARE, SELFPAY ==
[2022-10-15 10:27] VITALS: BMI 24.3
[2022-10-16 10:46] VITALS: BP 137/78; PULSE 68; RESP 18; TEMP 36.8; O2SAT 94
--- NOTE | 2022-10-16 12:19 | EXP.ANES.CKL ---
[facility] Disclaimer: The information contained in this section may have been updated after the patient was seen, as this information can be updated by other users. Medical History Anxiety Epilepsy H/O: CVA (cerebrovascular accident) H/O: CVA (cerebrovascular accident) Hypertension Surgical History History of colonoscopy History of left hip replacement Social History (Updated 10/16/22 @ 10:44 by Flora Abreu RN) Smoking Status: Current every day smoker tobacco type: cigarettes packs per day: 1 alcohol intake: former substance use type: marijuana current occupational status: disabled Travel in the last 8 weeks: None household members: none housing: house lives independently: Yes marital status: single [facility] Anesthesia Checklist Patient Identification Patient Identification: Arm Band and Family Structural Data Admitted From: Home Planned Operative Procedure/s: Colonoscopy. Consent for Planned Operative Procedure(s) Verified: Yes Verified Documents: Surgical Consent NPO Status Verified Time NPO: 00:00 Additional verifications Patient : No Anesthesia Reactions: No Hx Blood Transfusions: No Blood Transfusion Reaction: No Cephalosporin Allergy: No Previous Colonoscopy: No Airway Assessment C-Spine Mobility Assessed: Yes TMJ Mobility Assessed: Yes Dentition: Edentulous Neurological Assessment Level of Consciousness: Awake, Alert, Appropriate and Follows Commands Hx Seizures: Yes Numbness or tingling in extremities: No Anesthesia Plan Anesthesia Risk discussed: Yes ASA Class: II Anesthesia Type: MAC Preoperative Comments Pre-Operative Comments: History of seizures 10 years ago. Still on seizure medications. Hypertension. COPD.
[2022-10-16 12:40] VITALS: O2SAT 94
--- NOTE | 2022-10-16 13:31 | P.PCN_ITS ---
Procedure: Date: 10/16/22 Patient Date of :: 1960 Procedure Performed:: Total colonoscopy with polypectomy using snare and biopsy of distal rectal mass using hot snare Indications:: Patient is a 61-year-old male referred by urology for rectal mass noted on digital rectal examination Performing Provider:: Bruce Graves MD Referring Provider:: MD Bhavana Chavez Sedation:: MAC sedation Procedure:: Patient history was obtained and appropriate physical examination was performed. Patient's medications and allergies were reviewed. Informed consent was obtained after explaining the benefits, alternatives, and risks of the procedure including, but not limited to, bleeding, perforation, missed lesions, and adverse reaction to anesthesia medications. Patient was transported to endoscopy procedure room. Patient was connected to monitoring devices. Throughout the procedure the patient's blood pressure, pulse, and oxygen saturations were monitored continuously. Patient identification and planned procedure were verified by the staff. Patient was positioned in lateral decubitus position. Digital anorectal exam was performed. Variable stiffness Olympus colonoscope was inserted and advanced under direct visualization to the cecum. Adequacy of the colonic preparation was noted. The colonoscope was then slowly withdrawn while carefully examining the color, texture, anatomy, and integrity of the mucosoa circumferentially. Within the rectum retroflexion was performed. Colonoscope was then withdrawn. Digital anorectal examination revealed distal palpable rectal mass which was mobile. Colonoscope was inserted. In the distal rectum approximately 1 to 2 cm from the anal verge there was noted to be villous irregular lesion with some sessile component and some degree of pedunculation. Colonoscope was advanced beyond this to the cecum. There was some particulate liquid stool and vegetable matter which precluded visualization somewhat but irrigation and suctioning was performed. In the descending colon there were a couple of small polyps removed with cold snare. Sigmoid colon there was a diminutive polyp removed with cold snare with residual polyp base biopsied with cold biopsy. In the distal rectum the mass was biopsied with several large portions removed using hot snare. This was visualized in retroflexion as well. Mass was mobile. Colonoscope was w ithdrawn. Findings:: Descending colon polyp x2 Sigmoid colon polyp Distal rectal mass Scattered diverticulosis Recommendations:: He will need referral to colorectal surgery. This may be amenable to transanal excision. Complications:: None immediately apparent Estimated blood obtained (mL): 4
[2022-10-16 13:36] VITALS: BP 134/83; PULSE 68; RESP 14; TEMP 36.6; O2SAT 91
[2022-10-16 13:46] VITALS: BP 129/76; PULSE 60; RESP 16; O2SAT 95
[2022-10-16 13:48] VITALS: BP 116/63; PULSE 61; RESP 17; O2SAT 97
[2022-10-16 14:02] VITALS: BP 116/63; PULSE 58; RESP 18; O2SAT 95
== END 2022-10-16 14:02 | disposition home or self-care (01) ==
PROVIDERS: PCP Psychiatry & Neurology Neurology; Visit Provider Surgery
PROC: 0DJD8ZZ Inspection of Lower Intestinal Tract, Via Natural or Artificial Opening Endoscopic (ICD-10-PCS; principal; 2022-10-16 11:30)
DX: D12.8 Benign neoplasm of rectum (principal); D12.4 Benign neoplasm of descending colon; D12.5 Benign neoplasm of sigmoid colon; K57.30 Diverticulosis of large intestine without perforation or abscess without bleeding; F17.210 Nicotine dependence, cigarettes, uncomplicated; Z79.899 Other long term (current) drug therapy
CPT/HCPCS: 45380; 45385; 88305; J2704

== ENCOUNTER → 2022-11-10 10:21 | Outpatient (CLI) | payer MEDICARE, SELFPAY ==
--- NOTE | 2022-11-10 10:22 | CT_ITS ---
FINAL REPORT TECHNIQUE: Postcontrast axial images through the abdomen and pelvis were performed. This study was performed with techniques to keep radiation doses as low as reasonably achievable, (ALARA). Individualized dose reduction techniques using automated exposure control or adjustment of mA and/or kV according to the patient's size were employed. CLINICAL HISTORY: Rectal mass COMPARISON: June 2019 FINDINGS: Abdomen: There is emphysema and scarring in the lung bases. The liver is normal in size and attenuation. Gallstones are present. The spleen is unremarkable. The adrenals are normal. The pancreas is unremarkable. There are small renal cysts. The aorta is normal in caliber. No free fluid or adenopathy is identified. No findings for mechanical bowel obstruction are identified. Pelvis: The appendix is normal. The urinary bladder is unremarkable. There is streak artifact from left hip arthroplasty. There is a 4.8 cm polypoid mass in the rectum worrisome for neoplasm. IMPRESSION: 4.8 cm polypoid mass in the rectum worrisome for neoplasm. Reviewed, Interpreted and Dictated by Bruce Marsh III, MD Transcribed by Kulwant Wild Authenticated and [facility]
== END ==
LOC: RAD 10:22
PROVIDERS: PCP Nurse Practitioner Family; Visit Provider Surgery
DX: K62.89 Other specified diseases of anus and rectum (principal)
CPT/HCPCS: 74177; Q9967

== ENCOUNTER → 2023-04-14 12:50 | Outpatient (CLI) | payer MEDICARE, SELFPAY ==
--- NOTE | 2023-04-14 12:52 | CA_ITS ---
APPROVED REPORT EXAM: Comprehensive 2D, Doppler, and color-flow Echocardiogram Community [facility] Consultant: Sherry Alexander CRT Ht: 6 ft 3 in Wt: 183lbs BSA: 2.11 BP: 121/63 mmHg Indications: COPD, CVA/TIA, Hyperlipidemia, Hypertension/HDD, AAA, CVS 2D Dimensions LVOT 2.10 cm (M/F) 1.5-2.5 M-Mode Dimensions RVDd 3.16 cm (0.9-2.6) LA Diam 3.61 cm (1.9-4.0) LVDd 4.94 cm (3.5-5.7) Ao Diam 4.27 cm (2.0-3.7) LVDs 3.26 cm (3.5-5.7) IVSd 1.69 cm (0.6-1.1) PWd 0.99 cm (0.6-1.1) EF (Teich) 62.80% FS 34.00% EDV (Teich) 115.00 mL TAPSE 1.26 (<1.7) ESV (Teich) 42.80 mL LV Diastology E Decel Time 237.00 (160-240 msec) E/A Ratio 0.79 MED E' 7.90 (< 7 cm/sec) MED A' 9.70 cm/s E'/MED E' Ratio 8.09 (>14) LAT E' 7.30 (<10 cm/sec) LAT A' 8.50 cm/s E/LAT E' Ratio 8.75 (>14) Aortic Valve AO Peak GR. 7.20 mmHg Mitral Valve MV A Velocity 81.00 (40-130 cm/s) E/A Ratio 0.79 MV Decel. Time 237.00 (160-240 ms) Pulmonary Valve PV Peak Velocity 103.00 (50-150 cm/s) Tricuspid Valve TR P. Velocity 152.00 cm/s RAP Estimate 10.00 mmHg RVSP 19.20 mmHg Left Ventricle The left ventricle is normal size. The left ventricular systolic function is normal. The left ventricular ejection fraction is within the normal range. There is increased LV wall thickness. There is normal LV segmental wall motion. Diastolic function is normal. LVEF is 60%. Right Ventricle The right ventricle is normal size. The right ventricular systolic function is normal. Atria The left atrium size is normal. The right atrium size is normal. There is no Doppler evidence of interatrial shunt. Aortic Valve The aortic valve is mildly thickened. There is no aortic valvular stenosis. No aortic regurgitation is present. Mitral Valve The mitral valve leaflets are mildly thickened. No evidence of mitral valve stenosis. Trace mitral regurgitation. Tricuspid Valve The tricuspid valve leaflets are thin and pliable. Trace tricuspid regurgitation. There is insufficient TR jet to estimate RVSP. Pulmonic Valve The pulmonary valve is normal in structure. Trace pulmonic regurgitation. Great Vessels The aortic root is normal in size. The ascending aorta is normal in size. IVC is normal in size and collapses >50% with inspiration. Pericardium There is no pericardial effusion. Other Information Study Quality: Technically Difficult Conclusion This was a technically difficult study due to poor acoustic windows. Normal biventricular systolic function. No significant valvular stenosis or regurgitation. No Doppler evidence of interatrial shunt. Electronically signed by : Radha Baeza MD 04/14/2023 22:15:25
== END ==
LOC: RT 12:50
PROVIDERS: PCP Nurse Practitioner Family; Visit Provider Physician Assistant
DX: F17.200 Nicotine dependence, unspecified, uncomplicated (principal); I10 Essential (primary) hypertension; I71.40 Abdominal aortic aneurysm, without rupture, unspecified; Z86.73 Personal history of transient ischemic attack (TIA), and cerebral infarction without residual deficits
CPT/HCPCS: 93306

== ENCOUNTER 2023-07-24 16:43 | Emergency (ER) | payer MEDICARE, SELFPAY ==
[2023-07-24 16:44] VITALS: BP 140/82; PULSE 78; RESP 22; TEMP 36.8; O2SAT 95; BMI 23.1
--- NOTE | 2023-07-24 16:55 | XR_ITS ---
PROCEDURE INFORMATION: Exam: XR Chest Exam date and time: 07/24/2023 4:55 PM Age: 62 years old Clinical indication: Shortness of breath; Additional info: SOA TECHNIQUE: Imaging protocol: Radiologic exam of the chest. Views: 2 views. Total images: 4 COMPARISON: CR XR CHEST PORTABLE 06/23/2019 4:16 PM FINDINGS: Lungs: Bilateral hyperinflation is present. Patchy airspace opacities noted within both lung bases. Pleural spaces: No pleural effusions. Heart/Mediastinum: The heart is not enlarged. Bones/joints: The thoracic spine demonstrates mild degenerative changes at multiple levels. Sclerotic changes noted within the proximal right humerus. IMPRESSION: 1. Bilateral hyperinflation is present. 2. Patchy airspace opacities noted within both lung bases. 3. No pleural effusions.
--- NOTE | 2023-07-24 16:55 | ECG_ITS ---
APPROVED REPORT Exam: Resting ECG HR:70 bpm ECG Measurements Heart Rate 70 AXES [place] 173 P 73 QRSd 109 QRS 41 QT 380 T 82 QTc 401 Conclusion SINUS RHYTHM INFERIOR Q waves have previously been noted, questionable significance ABNORMAL ECG UNCONFIRMED REPORT Electronically signed by : Luis Elliott MD 07/26/2023 17:20:17
[2023-07-24 17:29] LABS: Chloride 104 mmol/L (98-107); Potassium 4.2 mmoL/L (3.5-5.1); Sodium 139 mmol/L (136-145)
[2023-07-24 17:31] LABS: Blood Urea Nitrogen 17 mg/dl (9-20); Creatinine Clearance Estimated 91 mL/min (50-200); Estimated Glomerular Filt Rate 98 ml/min (>60); GFR (African American) 119 ML/MIN (>60)
[2023-07-24 17:32] LABS: Alanine Aminotransferase 33 U/L (12-78); Albumin/Globulin Ratio 1.3 (1.1-1.8); Alkaline Phosphatase 114 U/L (38-126); Anion Gap 9.2 mEq/L (5-15); Aspartate Amino Transferase 34 U/L (17-59); Bilirubin,Total 0.5 mg/dl (0.2-1.3); Calcium 9.2 mg/dl (8.4-10.2); Carbon Dioxide 30 mmol/L (22.0-30.0); Globulin 3.2 g/dL (1.3-3.2); Glucose 126 mg/dl (74-100); Total Protein,Serum 7.2 g/dl (6.3-8.2)
[2023-07-24 17:35] LABS: Lactic Acid 2.6 mmol/L (0.7-2.1)
[2023-07-24 17:38] LABS: Basophils % 0.2 % (0.1-2.0); Hematocrit 37.9 % (42.0-52.0); Hemoglobin 13.4 g/dL (14.1-18.0); Lymphocytes # 0.8 K/mm3 (0.7-4.5); Lymphocytes % 6.9 % (10-50); Mean Corpuscular HGB Conc 35.3 g/dL (31.8-35.4); Mean Corpuscular Hemoglobin 31.3 pg (27.0-31.2); Mean Corpuscular Volume 88.4 fl (80-94); Mean Platelet Volume 7.6 fl (7.4-10.4); Monocytes # 0.5 K/mm3 (0.1-1.0); Monocytes % 4.5 % (1.7-9.3); Neutrophils # 10.3 K/mm3 (1.8-7.8); Neutrophils % 88.4 % (37.0-80.0); Platelet Count 166 K/mm3 (142-424); Red Blood Count 4.28 M/mm3 (4.60-6.20); Red Cell Distribution Width 13.1 % (11.5-17.5); White Blood Count 11.7 K/mm3 (4.8-10.8)
--- NOTE | 2023-07-24 17:42 | [facility].EDCP ---
Discharge Plan Disposition Patient Disposition: Home, Self-Care Chief Complaint: Shortness of Breath/Dyspnea Prescriptions Prescriptions: No Action atorvastatin 40 mg tablet 40 mg PO HS Qty: 90 1RF Spiriva with HandiHaler 18 mcg capsule, w/inhalation device 1 cap inhalation DAILY Rx Instructions: puncture 1 cap using device; one dose = 2 inhalations trazodone 50 mg tablet 50 mg PO HS Patient Comments: TAKE ONE TABLET BY MOUTH EVERY DAY AT BEDTIME FOR DEPRESSION lacosamide 200 mg tablet 200 mg PO BID Qty: 60 2RF Rx Instructions: take with 50 mg to equal 250 mg levetiracetam [Keppra] 500 mg tablet 500 mg PO DAILY Patient Comments: TAKE ONE TABLET BY MOUTH TWICE DAILY aspirin 81 mg tablet,delayed release (DR/EC) 81 mg PO DAILY pantoprazole 20 mg tablet,delayed release (DR/EC) See Rx Instructions .ROUTE .COMPLEX Rx Instructions: TAKE ONE TABLET BY MOUTH EVERY DAY amlodipine 10 mg tablet See Rx Instructions .ROUTE .COMPLEX Rx Instructions: TAKE 1 TABLET BY MOUTH DAILY buspirone 10 mg tablet See Rx Instructions .ROUTE .COMPLEX Rx Instructions: TAKE ONE TABLET BY MOUTH THREE TIMES DAILY FOR ANXIETY budesonide-formoterol [Symbicort] 160-4.5 mcg/actuation HFA aerosol inhaler See Rx Instructions .ROUTE .COMPLEX Rx Instructions: INHALE 2 PUFFS BY MOUTH TWICE DAILY FOR COPD Referrals Follow up/Referrals: Bhavana Zuñiga APRN [Primary Care Provider] - See instructions Activity Restrictions/Add. Instructions Additional Instructions/Restrictions: Call your family doctor to establish care for this visit to the emergency department and schedule follow-up within 48 hours to ensure improvement. If you have any worsening of your condition or any other concerning signs or symptoms, return to the emergency department or your primary care doctor for further evaluation. Talk to Bhavana about prescription for nebulizer machine and DuoNebs. Clinical Impressions Clinical Impression: Acute exacerbation of chronic obstructive pulmonary disease Discharge ED Provider: Jair Santo General Chief Complaint: Shortness of Breath/Dyspnea Stated Complaint: SOA difficulty breathing Time Seen by Provider: 07/24/23 16:45 Mode of Arrival: Ambulatory Source of Information: Patient Limitations: No Limitations Description of Symptoms (Recalled from ER Triage Doc. 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 Patient states he has been feeling short of breath and coughing up white and green sputum since Wednesday. On Wednesday, 5 days prior to this visit, went to his PCP and was given steroid and antibiotic, on chart review appears to be azithromycin 500 mg and prednisone 20 mg. Patient states that he is continue to be short of breath. Cough has progressively improved and he now only has white frothy sputum. Denies chest pain, fevers or chills, nausea or vomiting, or any other concerns at this time. Related Data Home Medications Medication Instructions Recorded Confirmed amlodipine 10 mg tablet See Rx Instructions .Route 10/08/22 03/23/23 .COMPLEX htn aspirin 81 mg tablet,delayed 81 mg PO DAILY thinner 10/08/22 03/23/23 release budesonide-formoterol HFA 160 See Rx Instructions .Route 10/08/22 03/23/23 mcg-4.5 mcg/actuation aerosol .COMPLEX COPD inhaler (Symbicort) buspirone 10 mg tablet See Rx Instructions .Route 10/08/22 03/23/23 .COMPLEX Depression levetiracetam 500 mg tablet 500 mg PO DAILY seizures 10/08/22 03/23/23 (Keppra) pantoprazole 20 mg tablet,delayed See Rx Instructions .Route 10/08/22 03/23/23 release .COMPLEX Reflux/Acid reflux tiotropium bromide 18 mcg capsule 1 cap inhalation DAILY COPD 10/08/22 03/23/23 with inhalation device (Spiriva with HandiHaler) trazodone 50 mg tablet 50 mg PO HS 03/23/23 03/23/23 Previous Rx's Medication Instructions Recorded atorvastatin 40 mg tablet 40 mg PO HS Cholesterol #90 tabs 05/29/21 lacosamide 200 mg tablet 200 mg PO BID SEIZURES #60 tabs 07/18/21 Allergies Allergy/AdvReac Type Severity Reaction Status Date / Time No Known Allergies Allergy Verified 03/23/23 11:03 [facility] Disclaimer: The information contained in this section may have been updated after the patient was seen, as this information can be updated by other users. Medical History (Updated 07/24/23 @ 18:44 by Jair Santo MD) AAA (abdominal aortic aneurysm) Anxiety Epilepsy H/O: CVA (cerebrovascular accident) H/O: CVA (cerebrovascular accident) Hypertension Rectal cancer Surgical History History of colonoscopy History of left hip replacement Social History Smoking Status: Current every day smoker tobacco type: cigarettes packs per day: 1 alcohol intake: former substance use type: marijuana current occupational status: disabled Travel in the last 8 weeks: None household members: none housing: house lives independently: Yes marital status: single ROS Obtained: Yes All systems reviewed & no additional complaints except as documented Physical Exam General General appearance: alert Neck Neck exam: Present trachea midline Chest Chest inspection: Present normal inspection and symmetric chest wall rise Respiratory Respiratory exam: Present normal lung sounds bilaterally; Absent respiratory distress, wheezes, stridor, accessory muscle use or prolonged expiratory phase Cardiovascular Cardiovascular exam: Present regular rate and normal rhythm Extremities Exam Extremities exam: Absent edema Neurological Exam Neurological exam: Present alert, oriented X3 and CN II-XII intact Skin Skin exam: Present warm and dry; Absent cyanosis, diaphoresis or pallor HEART Score HEART Score HEART Score assessment performed?: Yes History (anamnesis): Slightly suspicious ECG: Normal Age: 45-65 years Risk factors: Atherosclerosis history Troponin: </= normal limit HEART Score: 3 Critical Care Critical Care Time Critical Care Time: No Medical Decision Making Medical Records Medical records reviewed: Yes I reviewed the patient's medical records. Jose Inquiry Pt receiving controlled substance: No Jose was queried for this patient: No Vital Signs Vital Signs: 07/24/23 16:44 07/24/23 18:22 Temperature 98.2 F Temperature Source Oral Pulse Rate 78 Pulse Rate [Left Radial] 78 Respiratory Rate 22 Blood Pressure 136/69 Blood Pressure [Right Arm] 140/82 Blood Pressure Mean [Right Arm] 101 Blood Pressure Source [Right Arm] Automatic Cuff Blood Pressure Position [Right Arm] Sitting 02 Sat by Pulse Oximetry 95 97 Oxygen Delivery Method Room Air Room Air Lab Data Labs: Lab Results 07/24/23 17:00: WBC 11.7 H, RBC 4.28 L, Hgb 13.4 L, Hct 37.9 L, MCV 88.4, MCH 31.3 H, MCHC 35.3, RDW 13.1, Plt Count 166, MPV 7.6, Neut % (Auto) 88.4 H, Lymph % (Auto) 6.9 L, Carver % (Auto) 4.5, Eos % (Auto) 0.0 L, Baso % (Auto) 0.2, Neut # (Auto) 10.3 H, Lymph # (Auto) 0.8, Carver # (Auto) 0.5, Eos # (Auto) 0.0, Baso # (Auto) 0.0, Total Counted 100, Neutrophils % (Manual) 90 H, Lymphocytes % (Manual) 10, Platelet Estimate Normal, RBC Morphology Normal, Sodium 139, Potassium 4.2, Chloride 104, Carbon Dioxide 30, Anion Gap 9.2, BUN 17, Creatinine 0.80, Estimated Creat Clear 91, Estimated GFR 98, Est GFR ( Amer) 119, Glucose 126 H, Lactate 2.6 H, Calcium 9.2, Total Bilirubin 0.5, AST 34, ALT 33, Alkaline Phosphatase 114, Troponin I 0.03, Total Protein 7.2, Albumin 4.0, Globulin 3.2, Albumin/Globulin Ratio 1.3 07/24/23 17:00 07/24/23 17:00 Response Orders (Tests/Meds): ED MEDICATIONS Generic Name Dose Route Start Last Admin Trade Name Freq PRN Reason Stop Dose Admin Sodium Chloride 10 ml 07/24/23 16:55 Sodium Chloride 0.9% 10ml Flush Syringe IV 08/23/23 16:54 NEEDED PRN Maintain IV Site Discontinued Medications Generic Name Dose Route Start Last Admin Trade Name Freq PRN Reason Stop Dose Admin Albuterol/Ipratropium 3 ml 07/24/23 16:55 07/24/23 17:48 Ipratropium/Albuterol 3 Ml Neb 07/24/23 16:56 3 ml ONCE ONE Administration ORDERS Category Date Time Status XR chest 2V Stat Exams 07/24/23 16:55 Completed Complete Blood Count Auto Diff Stat Lab 07/24/23 17:00 Completed Comprehensive Metabolic Panel Stat Lab 07/24/23 17:00 Completed Lactic Acid Stat Lab 07/24/23 17:00 Completed Troponin I Q3H Lab 07/24/23 20:00 Ordered Troponin I Q3H Lab 07/24/23 23:00 Ordered Troponin I Stat Lab 07/24/23 17:00 Completed Blood Culture Stat Micro 07/24/23 17:50 Received MDM Narrative Medical Decision Narrative: 62-year-old male history of CAD, COPD 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 Patient states he has been feeling short of breath and coughing up white and green sputum since Wednesday. On Wednesday, 5 days prior to this visit, went to his PCP and was given steroid and antibiotic, on chart review appears to be azithromycin 500 mg and prednisone 20 mg. Patient states that he is continue to be short of breath. Cough has progressively improved and he now only has white frothy sputum. Denies chest pain, fevers or chills, nausea or vomiting, or any other concerns at this time. History was obtained via conversation with patient. On arrival, patient hemodynamically stable, alert, oriented x4, appropriate, GCS 15, moving all extremities spontaneously, pupils equal and reactive to light. Full physical exam performed and significant for well-appearing male no acute distress. No focal breath sounds, clear to auscultation, but diminished diffusely. No wheezes. Cardiac exam within normal limits. Nontachycardic, not hypoxemic Differential includes COPD exacerbation, pneumonia, bronchitis, pneumothorax, among others. Patient was given DuoNeb for symptomatic management and correction of underlying abnormalities. Workup independently interpreted and significant for nonactionable CBC or chemistry. Troponin negative. Chest x-ray without acute cardiopulmonary airspace disease in the setting of COPD chronic changes. See radiology read for full review of final results. Independent interpretation of EKG demonstrates sinus rhythm 70 beats a minute without ST or T wave changes concerning for acute ischemia. Patient does have Q waves in the inferior leads likely from previous process. [place] normal. CT, QRS, QT intervals within normal limits. Heart score 3. On reevaluation, patient ready to go feeling much better after DuoNeb. Given patient presentation, workup, history, this most likely represents mild COPD exacerbation. Because patient at baseline without signs or symptoms of clinical decompensation, deemed appropriate for discharge. Results were relayed to patient who voiced understanding and were agreeable to outpatient management and follow up. At the time of discharge the patient was hemodynamically stable, tolerating PO, and mobilizing appropriately.
[2023-07-24 17:43] LABS: MANUAL DIFFERENTIAL MANUAL DIFFERENTIAL (MANUAL DIFF)
[2023-07-24 17:44] LABS: Troponin I 0.03 ng/ml (0.00-0.034)
[2023-07-24] MEDS: IPRATROPIUM/ALBUTEROL 3 ML NEB IH (17:48)
[2023-07-24 18:22] VITALS: BP 136/69; PULSE 78; O2SAT 97
[2023-07-24 18:30] LABS: Lymphocytes % 10 % (10-50); Neutrophils % 90 % (42-76); Platelet Estimate Normal; Total Cells Counted 100
[2023-07-24 18:31] LABS: RBC Morphology Normal
[2023-07-24 18:48] VITALS: BP 166/89; PULSE 80; RESP 15; TEMP 36.7
[2023-07-24 21:16] LABS: Reflex Lactic Add Lactic Reflex
== END 2023-07-24 18:49 | disposition home or self-care (01) ==
PROVIDERS: Emergency Provider Emergency Medicine; PCP Nurse Practitioner Family
DX: J44.1 Chronic obstructive pulmonary disease with (acute) exacerbation (principal); R06.02 Shortness of breath; I25.10 Atherosclerotic heart disease of native coronary artery without angina pectoris; I10 Essential (primary) hypertension; G40.909 Epilepsy, unspecified, not intractable, without status epilepticus; I71.40 Abdominal aortic aneurysm, without rupture, unspecified; F17.210 Nicotine dependence, cigarettes, uncomplicated; Z86.73 Personal history of transient ischemic attack (TIA), and cerebral infarction without residual deficits
CPT/HCPCS: 71046; 80053; 83605; 84484; 85007; 85025; 87040; 93005; 99285

== ENCOUNTER 2024-07-19 15:26 | Inpatient (IN) | payer MEDICARE, SELFPAY ==
[2024-07-19] VITALS (12 sets, daily range): BP systolic 117–147; BP diastolic 56–77; PULSE 63–93; RESP 14–26; TEMP 36.8–37.7; O2SAT 85–99; BMI 22.2; BMI 21.3
--- NOTE | 2024-07-19 15:42 | ECG_ITS ---
APPROVED REPORT Exam: Resting ECG HR:77 bpm ECG Measurements Heart Rate 77 AXES [place] 179 P 78 QRSd 107 QRS 84 QT 358 T 75 QTc 390 Conclusion SINUS RHYTHM INDETERMINATE AXIS ANTERIOR MYOCARDIAL INFARCTION , POSSIBLY ACUTE [40+ ms Q WAVE AND/OR ST/T ABNORMALITY IN V3/V4] PROBABLE INFERIOR MYOCARDIAL INFARCTION , OF INDETERMINATE AGE [35 ms Q WAVE IN II/aVF] UNCONFIRMED REPORT Electronically signed by : JENNIFER BURDICK, 07/22/2024 00:47:24
--- NOTE | 2024-07-19 15:46 | HMH.EDGENADL ---
Discharge Plan Disposition Patient Disposition: Admitted Clinical Impressions Clinical Impression: Respiratory failure Discharge ED Provider: Vadim Olsen General Adult HPI General Chief complaint: Shortness of Breath/Dyspnea Stated complaint: flu A+, pneu+, low O2 Time Seen by Provider: 07/19/24 15:46 Mode of Arrival: Ambulatory Source of Information: Patient Limitations: No Limitations History of Present Illness HPI narrative: Irvin Beasley is a 63M with past medical history of COPD, current tobacco use, previous stroke on a blood thinner, who presents to the emergency department for shortness of breath with recent diagnosis of pneumonia. The patient states over the last 2 days, he has had worsening shortness of breath and pain in his right lower back. He was seen at his PCP office yesterday (Bhavana) and was diagnosed with pneumonia and influenza A and prescribed steroids and azithromycin. He is taken 2 doses of the azithromycin and 1 dose of the steroids but states that his breathing has gotten worse. He denies any chest pain, abdominal pain or fever. His SpO2 on arrival was 85% and he was put on 2 L nasal cannula. He states that he does not normally require oxygen supplementation. Related Data Home Medications ?Medication ?Instructions ?Recorded ?Confirmed amlodipine 10 mg tablet 10 mg PO DAILY htn 10/08/22 07/19/24 aspirin 81 mg tablet,delayed 81 mg PO DAILY thinner 10/08/22 07/19/24 release budesonide-formoterol HFA 160 See Rx Instructions .Route 10/08/22 07/19/24 mcg-4.5 mcg/actuation aerosol .COMPLEX COPD inhaler (Symbicort) buspirone 10 mg tablet 10 mg PO TID Depression 10/08/22 07/19/24 levetiracetam 500 mg tablet 500 mg PO BID seizures 10/08/22 07/19/24 (Keppra) pantoprazole 20 mg tablet,delayed 20 mg PO DAILY Reflux/Acid reflux 10/08/22 07/19/24 release tiotropium bromide 18 mcg capsule 1 cap inhalation DAILY COPD 10/08/22 07/19/24 with inhalation device (Spiriva with HandiHaler) trazodone 50 mg tablet 50 mg PO HS 03/23/23 07/19/24 Previous Rx's ?Medication ?Instructions ?Recorded atorvastatin 40 mg tablet 40 mg PO HS Cholesterol #90 tabs 05/29/21 lacosamide 200 mg tablet 200 mg PO BID SEIZURES #60 tabs 07/18/21 Allergies Allergy/AdvReac Type Severity Reaction Status Date / Time No Known Allergies Allergy Verified 03/23/23 11:03 [facility] Disclaimer: The information contained in this section may have been updated after the patient was seen, as this information can be updated by other users. Medical History (Updated 07/19/24 @ 18:56 by Santosh Leon MD) AAA (abdominal aortic aneurysm) Rectal cancer H/O: CVA (cerebrovascular accident) Hypertension Epilepsy Anxiety H/O: CVA (cerebrovascular accident) Surgical History History of left hip replacement History of colonoscopy Social History Smoking Status: Current every day smoker tobacco type: cigarettes packs per day: 1 alcohol intake: former substance use type: marijuana current occupational status: disabled Travel in the last 8 weeks: None household members: none housing: house lives independently: Yes marital status: single Have you lived/traveled outside US in past 30 days?: No Contact w/someone who lives/traveled outside US past 30 days?: No Exposure to someone with infectious disease in past 14 days?: No Do you have a fever (greater than 100.4 F or 38 C)?: Yes Have you tested positive for COVID-19: No Exposed to someone with COVID-19 in past 14 days?: No Do you have a sore throat?: No Do you have a cough?: No Do you have any weakness?: No Do you have any diarrhea?: No Are you experiencing any unusual bleeding?: No Do you have any muscle aches/pain?: No Do you have any abdominal pain?: No Are you experiencing loss of taste or smell?: No Other Medical History Have you received the Flu Vaccine for this season: Yes Have you received the Pneumonia Vaccine: No ROS Obtained: Yes Systems reviewed as appropriate & no additional complaints except as documented Physical Exam General General appearance: alert and in no apparent distress Comment: Mild increased work of breathing Head Head exam: atraumatic Eye Eye exam: Present normal appearance ENT ENT exam: Present normal external ear exam Neck Neck exam: Present full ROM Chest Chest inspection: Present symmetric chest wall rise Respiratory Respiratory exam: Present normal lung sounds bilaterally, wheezes (Bilateral end expiratory wheezing) and other (Rhonchi at the right base); Absent respiratory distress Cardiovascular Cardiovascular exam: Present regular rate and normal rhythm Abdominal Exam Abdominal exam: Present soft; Absent tenderness or guarding exam: Present deferred Extremities Exam Extremities exam: Present normal inspection Back Exam Back exam: Present normal inspection Neurological Exam Neurological exam: Present alert and oriented X3 Psychiatric Psychiatric exam: Present normal affect Skin Skin exam: Present warm and dry Medical Decision Making Medical Records Screening: Per USPSTF and CDC recommendations, given the prevalence of disease in our region, it is our hospital?s policy to screen for HIV and viral Hepatitis for all patients aged 18 and over and those with ongoing risk factors. Jose Inquiry Pt receiving controlled substance: No Vital Signs: 07/19/24 15:27 07/19/24 15:28 07/19/24 15:33 Temperature 99.0 F Temperature Source Oral Pulse Rate 83 Pulse Rate [Left Radial] 79 Respiratory Rate 26 H Blood Pressure 122/71 Blood Pressure [Right Arm] 122/71 Blood Pressure Mean [Right Arm] 88 Blood Pressure Source [Right Arm] Blood Pressure Position [Right Arm] 02 Sat by Pulse Oximetry 85 L 96 96 Oxygen Delivery Method Room Air Nasal Cannula Nasal Cannula Oxygen Flow Rate (LPM) 2 4 07/19/24 16:00 07/19/24 17:31 07/19/24 17:45 Temperature Temperature Source Pulse Rate 73 75 Pulse Rate [Left Radial] Respiratory Rate 26 H 14 Blood Pressure 126/73 147/77 H Blood Pressure [Right Arm] Blood Pressure Mean [Right Arm] Blood Pressure Source [Right Arm] Blood Pressure Position [Right Arm] 02 Sat by Pulse Oximetry 95 96 Oxygen Delivery Method Nasal Cannula Nasal Cannula Nasal Cannula Oxygen Flow Rate (LPM) 4 4 4 07/19/24 17:51 07/19/24 18:00 07/19/24 18:15 Temperature 98.2 F 98.2 F 98.4 F Temperature Source Oral Pulse Rate 70 87 Pulse Rate [Left Radial] 86 Respiratory Rate 20 19 19 Blood Pressure 125/68 146/77 H Blood Pressure [Right Arm] 128/75 Blood Pressure Mean [Right Arm] 92 Blood Pressure Source [Right Arm] Automatic Cuff Blood Pressure Position [Right Arm] Sitting 02 Sat by Pulse Oximetry 96 Oxygen Delivery Method Room Air Nasal Cannula Nasal Cannula Oxygen Flow Rate (LPM) 3 4 Lab Data Lab Results 07/19/24 15:42: WBC 14.4 H, RBC 4.46 L, Hgb 13.6 L, Hct 38.7 L, MCV 86.8, MCH 30.5, MCHC 35.1, RDW 12.4, Plt Count 128 L, MPV 9.2, Neut % (Auto) 92.3 H, Lymph % (Auto) 1.9 L, Dubois % (Auto) 5.1, Eos % (Auto) 0.0 L, Baso % (Auto) 0.1, Neut # (Auto) 13.3 H, Lymph # (Auto) 0.3 L, Dubois # (Auto) 0.7, Eos # (Auto) 0.0, Baso # (Auto) 0.0, Total Counted 100, Neutrophils % (Manual) 94 H, Band Neutrophils % 3.0, Lymphocytes % (Manual) 2 L, Monocytes % (Manual) 1 L, Platelet Estimate Slight decrease, RBC Morphology Normal, Sodium 129 L, Potassium 4.3, Chloride 95 L, Carbon Dioxide 25, Anion Gap 13.3, BUN 25 H, Creatinine 0.80, Estimated Creat Clear 89, Estimated GFR 98, Est GFR ( Amer) 118, Glucose 112 H, Calcium 8.9, Total Bilirubin 0.7, AST 123 H, ALT 60, Alkaline Phosphatase 107, Troponin I 0.09 H, NT-Pro-B Natriuret Pep 872 H, Total Protein 6.8, Albumin 3.9, Globulin 2.9, Albumin/Globulin Ratio 1.3 07/19/24 15:53: VBG pH 7.37, VBG pCO2 43.8, VBG pO2 53.9 H, VBG HCO3 24.5, VBG Total CO2 25.9, VBG O2 Saturation 87.4 H, VBG Base Excess -0.8, VBG Lactic Acid 1.4 07/19/24 15:42 07/19/24 15:42 Orders (Tests/Meds): ED MEDICATIONS Generic Name Dose Route Start Last Admin Trade Name Freq PRN Reason Stop Dose Admin Acetaminophen 650 mg 07/19/24 18:37 Acetaminophen 325mg Tab PO 08/18/24 18:36 Q4HP PRN Fever or Mild Pain (1-3) Albuterol/Ipratropium 3 ml 07/20/24 00:00 07/20/24 00:07 Ipratropium/Albuterol 3 Ml [facility] 08/19/24 00:00 3 ml Q6RT LEONIDAS Administration Aspirin 81 mg 07/20/24 09:00 Aspirin Ec 81mg Tablet PO 08/19/24 08:59 DAILY [facility] Atorvastatin Calcium 40 mg 07/20/24 21:00 Atorvastatin 40mg Tablet PO 08/19/24 20:59 HS [facility] Budesonide 0.5 mg 07/19/24 18:40 07/19/24 19:05 Budesonide 0.5mg/2ml [facility] 08/18/24 18:39 0.5 mg BIDRT LEONIDAS Administration Buspirone HCl 10 mg 07/19/24 21:45 07/19/24 21:56 Buspirone Hcl 10 Mg Tablet PO 08/18/24 21:44 10 mg DAILY LEONIDAS Administration Enoxaparin Sodium 40 mg 07/20/24 09:00 Enoxaparin 40mg/0.4ml Syringe SUBCUT 08/19/24 08:59 DAILY [facility] Ceftriaxone Sodium 1 gm/ 50 mls @ 100 mls/hr 07/20/24 09:00 Sodium Chloride IV 07/30/24 08:59 Q24H [facility] Doxycycline Hyclate 100 mg/ 250 mls @ 166.667 mls/hr 07/19/24 21:00 07/19/24 20:32 Sodium Chloride IV 07/29/24 20:59 166.667 mls/hr Q12H LEONIDAS Administration Levetiracetam 500 mg 07/19/24 21:00 07/19/24 20:57 Levetiracetam 500 Mg Tablet PO 08/18/24 20:59 500 mg BID LEONIDAS Administration Non-Formulary Medication 200 mg 07/19/24 20:45 07/19/24 21:08 Lacosamide PO 08/18/24 20:44 Not Given BID [facility] Non-Formulary Medication 20 mg 07/20/24 09:00 Pantoprazole PO 08/19/24 08:59 DAILY [facility] Ondansetron HCl 4 mg 07/19/24 18:37 Ondansetron 4mg/2ml Vial IV 08/18/24 18:36 Q6HP PRN Nausea Polyethylene Glycol 17 gm 07/20/24 09:00 Polyethylene Glycol 3350 17 Gm Packet PO 08/19/24 08:59 DAILY LEONIDAS Prednisone 40 mg 07/20/24 09:00 Prednisone 20mg Tab PO 08/19/24 08:59 DAILY LEONIDAS Sodium Chloride 3 ml 07/19/24 18:55 Sodium Chloride 3% 15ml [facility] 08/18/24 18:54 ONCE PRN INDUCE [employer] Trazodone HCl 50 mg 07/19/24 22:10 07/19/24 22:21 Trazodone 50mg Tablet PO 08/18/24 22:09 50 mg HS LEONIDAS Administration Discontinued Medications Generic Name Dose Route Start Last Admin Trade Name Freq PRN Reason Stop Dose Admin Albuterol/Ipratropium 3 ml 07/19/24 15:53 07/19/24 16:04 Ipratropium/Albuterol 3 Ml [facility] 07/19/24 15:54 3 ml ONCE ONE Administration Ceftriaxone Sodium 2 gm/ 100 mls @ 200 mls/hr 07/19/24 17:00 07/19/24 17:24 Sodium Chloride IV 07/19/24 17:29 200 mls/hr ONCE ONE Administration Azithromycin 500 mg/ Sodium 250 mls @ 250 mls/hr 07/19/24 17:00 07/19/24 17:24 Chloride IV 07/19/24 17:59 250 mls/hr ONCE ONE Administration ORDERS Category Date Time Status CXR 2 view (NOT portable) [XR chest 2V] Stat Exams 07/19/24 15:53 Completed BNP [NT Pro Brain Natriuretic Pep.] Stat Lab 07/19/24 15:42 Completed CBC w/Auto Diff [Complete Blood Count Auto Diff] Stat Lab 07/19/24 15:42 Completed CMP [Comprehensive Metabolic Panel] Stat Lab 07/19/24 15:42 Completed Troponin I Q3H Lab 07/19/24 19:07 Completed Troponin I Q3H Lab 07/19/24 22:03 Completed Troponin I Stat Lab 07/19/24 15:42 Completed Blood Culture Stat Micro 07/19/24 15:42 Received VBG [Venous Blood Gas] Stat RT 07/19/24 15:53 Completed Medical Decision Narrative: Hannah Beasley is a 63-year-old male with past medical history of COPD and previous stroke who presents to the emergency department for complaints of difficulty breathing and hypoxia. Patient states that yesterday he was diagnosed with pneumonia and was put on azithromycin and steroids by his primary care physician. His symptoms began 2 to 3 days ago. He states that his breathing got worse today he was found to be hypoxic on arrival to 85% SpO2. Patient was put on 2 L nasal cannula. On physical exam, patient was tachypneic with mild respiratory distress. He has crackles at the right base as well as bilateral end expiratory wheezing but has no murmurs. Physical exam is otherwise unremarkable. Differential diagnosis includes, but is not limited to: Pneumonia, viral respiratory illness, COPD exacerbation, CHF, among others. Patient's workup Patient's workup included: CBC, CMP, troponin, BNP, chest x-ray two-view, VBG EKG interpreted by me personally. No acute ST elevation or depression. Q waves in 2 and aVF, likely from old cardiac injury. Ventricular rate of 77 bpm. Normal sinus rhythm. QTc normal at 390, WV interval normal at 179. Workup demonstrated leukocytosis with white blood cell count of 14.4 left shift, platelets of 128, no acidosis with pCO2 normal at 43.8, lactate normal at 1.4, sodium low at 129, potassium normal at 4.3, BUN mildly elevated at 25 but creatinine normal at 0.8, initial troponin 0.09 with repeat pending and BNP elevated at 872 (unclear what baseline is) Chest x-ray was interpreted by me personally and demonstrated a right sided perihilar opacity concerning for pneumonia. See radiology report for final details. Given the patient is requiring oxygen and becomes hypoxic with ambulation, is felt that he would benefit from admission for continued treatment of his pneumonia. Started the patient on IV Rocephin and azithromycin for community-acquired coverage. Discussed patient's case with Dr. Leon who agreed to admit the patient. Critical Care Critical Care Time Critical Care Time: Yes Attestation: On 07/19/24, the high probability of a clinically significant, sudden or life threatening deterioration of the following system(s) required my full and direct attention, intervention and personal management. The time I documented below is in addition to time spent performing reported procedures but includes the following listed in this critical care notation. Total Time Total Critical Care Time: 35
--- NOTE | 2024-07-19 15:53 | XR_ITS ---
FINAL REPORT TECHNIQUE: Chest PA & Lateral CLINICAL HISTORY: Pneumonia, hypoxic COMPARISON: 06/23/2019 FINDINGS: 2 views of the chest were performed. The heart size is mildly enlarged. The mediastinum is within normal limits. Patchy airspace opacity in the right perihilar region is noted. The lungs are hyperinflated. There is chronic scarring. There are no pleural effusions. There is no pneumothorax. The bony thorax appears intact. IMPRESSION: Increased airspace opacity right perihilar region consistent with acute pneumonia. Reviewed, Interpreted and Dictated by Tino Cyr MD Transcribed by Xiomara Cason Authenticated and [facility]
[2024-07-19 16:01] LABS: Basophils % 0.1 % (0.1-2.0); Hematocrit 38.7 % (42.0-52.0); Hemoglobin 13.6 g/dL (14.1-18.0); Lymphocytes # 0.3 K/mm3 (0.7-4.5); Lymphocytes % 1.9 % (10-50); Mean Corpuscular HGB Conc 35.1 g/dL (31.8-35.4); Mean Corpuscular Hemoglobin 30.5 pg (27.0-31.2); Mean Corpuscular Volume 86.8 fl (80-94); Mean Platelet Volume 9.2 fl (7.4-10.4); Monocytes # 0.7 K/mm3 (0.1-1.0); Monocytes % 5.1 % (1.7-9.3); Neutrophils # 13.3 K/mm3 (1.8-7.8); Neutrophils % 92.3 % (37.0-80.0); Platelet Count 128 K/mm3 (142-424); Red Blood Count 4.46 M/mm3 (4.60-6.20); Red Cell Distribution Width 12.4 % (11.5-17.5); White Blood Count 14.4 K/mm3 (4.8-10.8)
[2024-07-19 16:04] LABS: MANUAL DIFFERENTIAL MANUAL DIFFERENTIAL (MANUAL DIFF)
[2024-07-19] MEDS: IPRATROPIUM/ALBUTEROL 3 ML NEB IH (16:04)
[2024-07-19 16:07] LABS: Albumin Level 3.9 g/dl (3.5-5.0); Chloride 95 mmol/L (98-107); Sodium 129 mmol/L (136-145)
[2024-07-19 16:07] LABS: Lactate Venous 1.4 mmol/L (0.4-2.0); VBG Base Excess -0.8 mmol/L (-2.4-2.3); VBG HCO3 24.5 mmol/L (23-30); VBG Oxygen Saturation 87.4 % (50-70); VBG PCO2 43.8 mmol/L (35-51); VBG PH 7.37 mmol/L (7.31-7.41); VBG PO2 53.9 mmol/L (28-40); VBG Total CO2 25.9 mmol/L (23-27)
[2024-07-19 16:08] LABS: Potassium 4.3 mmoL/L (3.5-5.1)
[2024-07-19 16:10] LABS: Alanine Aminotransferase 60 U/L (12-78); Albumin/Globulin Ratio 1.3 (1.1-1.8); Alkaline Phosphatase 107 U/L (38-126); Anion Gap 13.3 mEq/L (5-15); Aspartate Amino Transferase 123 U/L (17-59); Bilirubin,Total 0.7 mg/dl (0.2-1.3); Blood Urea Nitrogen 25 mg/dl (9-20); Carbon Dioxide 25 mmol/L (22.0-30.0); Creatinine Clearance Estimated 89 mL/min (50-200); Estimated Glomerular Filt Rate 98 ml/min (>60); GFR (African American) 118 ML/MIN (>60); Globulin 2.9 g/dL (1.3-3.2); Total Protein,Serum 6.8 g/dl (6.3-8.2)
[2024-07-19 16:11] LABS: Calcium 8.9 mg/dl (8.4-10.2); Glucose 112 mg/dl (74-100)
[2024-07-19 16:19] LABS: Lymphocytes % 2 % (10-50); Monocytes % 1 % (2-9); Neutrophils % 94 % (42-76); Platelet Estimate Slight Decrease; RBC Morphology Normal; Total Cells Counted 100
[2024-07-19 16:20] LABS: NT Pro Brain Natriuretic Pep. 872 pg/mL (0-125)
[2024-07-19 16:22] LABS: Troponin I 0.09 ng/ml (0.00-0.034)
[2024-07-19] MEDS: AZITHROMYCIN 500 MG in 0.9 % SODIUM CHLORIDE 250 ML 250 MG IV (17:24)
[2024-07-19] MEDS: CEFTRIAXONE SODIUM 2 GM in 0.9 % SODIUM CHLORIDE 100 ML IV (17:24)
--- NOTE | 2024-07-19 17:34 | PC.NURSE ---
Rounded on PT. The PT voices that he does not need anything at this time. Call light is within reach of the PT. Ordered PT a dinner tray from the cafe.
--- NOTE | 2024-07-19 17:36 | PC.NURSE ---
CALLED HOUSE FOR A BED
--- NOTE | 2024-07-19 18:06 | PC.NURSE ---
spoke with patient sister per his request
--- NOTE | 2024-07-19 18:36 | PC.NURSE ---
pt unable to verbalize all medication that he takes. confirmed what medications pt was familiar with
--- NOTE | 2024-07-19 18:40 | EXP.HP ---
History of Present Illness *Admission Date: 07/19/24 *Reason for visit:: Shortness of breath *History of present illness: Irvin Beasley is a 63-year-old male with a medical history significant for rectal carcinoma s/p resection (follows [facility], considering starting chemotherapy in August), COPD on room air, hypertension who presents with progressive shortness of breath, productive cough over the past few days. He states his PCP gave him azithromycin, steroids 2 days ago which she picked up yesterday. However, he states he continued to feel worse today prompting him to come to the ED. On arrival, patient was hypoxic to 85% on room air, improved with 2 L nasal cannula. Tachypneic up to 26 which improved with DuoNeb. WBC 14.4, sodium 129, troponin 0.09, BNP 872. CXR suggestive of right perihilar pneumonia. Given ceftriaxone, azithromycin in the ED. Case discussed with ED provider and decision was made to admit patient for acute hypoxic respiratory failure secondary to community-acquired pneumonia and COPD exacerbation. [facility] Disclaimer: The information contained in this section may have been updated after the patient was seen, as this information can be updated by other users. Medical History (Updated 07/19/24 @ 18:56 by Santosh Leon MD) AAA (abdominal aortic aneurysm) Rectal cancer H/O: CVA (cerebrovascular accident) Hypertension Epilepsy Anxiety H/O: CVA (cerebrovascular accident) Surgical History History of left hip replacement History of colonoscopy Social History Smoking Status: Current every day smoker tobacco type: cigarettes packs per day: 1 alcohol intake: former substance use type: marijuana current occupational status: disabled Travel in the last 8 weeks: None household members: none housing: house lives independently: Yes marital status: single Have you lived/traveled outside US in past 30 days?: No Contact w/someone who lives/traveled outside US past 30 days?: No Exposure to someone with infectious disease in past 14 days?: No Do you have a fever (greater than 100.4 F or 38 C)?: Yes Have you tested positive for COVID-19: No Exposed to someone with COVID-19 in past 14 days?: No Do you have a sore throat?: No Do you have a cough?: No Do you have any weakness?: No Do you have any diarrhea?: No Are you experiencing any unusual bleeding?: No Do you have any muscle aches/pain?: No Do you have any abdominal pain?: No Are you experiencing loss of taste or smell?: No Other Medical History Have you received the Flu Vaccine for this season: No Have you received the Pneumonia Vaccine: No Meds Home Medications and Allergies Home Medications ?Medication ?Instructions ?Recorded ?Confirmed ?Type atorvastatin 40 mg tablet 40 mg PO HS Cholesterol #90 tabs 05/29/21 03/23/23 Rx lacosamide 200 mg tablet 200 mg PO BID SEIZURES #60 tabs 07/18/21 03/23/23 Rx amlodipine 10 mg tablet See Rx Instructions .Route 10/08/22 03/23/23 History .COMPLEX htn aspirin 81 mg tablet,delayed 81 mg PO DAILY thinner 10/08/22 07/19/24 History release budesonide-formoterol HFA 160 See Rx Instructions .Route 10/08/22 07/19/24 History mcg-4.5 mcg/actuation aerosol .COMPLEX COPD inhaler (Symbicort) buspirone 10 mg tablet See Rx Instructions .Route 10/08/22 03/23/23 History .COMPLEX Depression levetiracetam 500 mg tablet 500 mg PO DAILY seizures 10/08/22 03/23/23 History (Keppra) pantoprazole 20 mg tablet,delayed See Rx Instructions .Route 10/08/22 03/23/23 History release .COMPLEX Reflux/Acid reflux tiotropium bromide 18 mcg capsule 1 cap inhalation DAILY COPD 10/08/22 07/19/24 History with inhalation device (Spiriva with HandiHaler) trazodone 50 mg tablet 50 mg PO HS 03/23/23 07/19/24 History New Prescriptions to Start Prescriptions: Allergies Allergy/AdvReac Type Severity Reaction Status Date / Time No Known Allergies Allergy Verified 03/23/23 11:03 Exam Data for Last 24 hours Vital signs and Labs for Last 24 Hours: Temp Pulse Resp BP Pulse Ox O2 Del Method O2 Flow Rate 98.4 F 86 19 128/75 96 Nasal Cannula 4 07/19/24 18:15 07/19/24 18:15 07/19/24 18:15 07/19/24 18:15 07/19/24 18:15 07/19/24 18:15 07/19/24 18:15 Laboratory Results - last 24 hr 07/19/24 15:42: WBC 14.4 H, RBC 4.46 L, Hgb 13.6 L, Hct 38.7 L, MCV 86.8, MCH 30.5, MCHC 35.1, RDW 12.4, Plt Count 128 L, MPV 9.2, Neut % (Auto) 92.3 H, Lymph % (Auto) 1.9 L, Citrus % (Auto) 5.1, Eos % (Auto) 0.0 L, Baso % (Auto) 0.1, Neut # (Auto) 13.3 H, Lymph # (Auto) 0.3 L, Citrus # (Auto) 0.7, Eos # (Auto) 0.0, Baso # (Auto) 0.0, Total Counted 100, Neutrophils % (Manual) 94 H, Band Neutrophils % 3.0, Lymphocytes % (Manual) 2 L, Monocytes % (Manual) 1 L, Platelet Estimate Slight decrease, RBC Morphology Normal, Sodium 129 L, Potassium 4.3, Chloride 95 L, Carbon Dioxide 25, Anion Gap 13.3, BUN 25 H, Creatinine 0.80, Estimated Creat Clear 89, Estimated GFR 98, Est GFR ( Amer) 118, Glucose 112 H, Calcium 8.9, Total Bilirubin 0.7, AST 123 H, ALT 60, Alkaline Phosphatase 107, Troponin I 0.09 H, NT-Pro-B Natriuret Pep 872 H, Total Protein 6.8, Albumin 3.9, Globulin 2.9, Albumin/Globulin Ratio 1.3 07/19/24 15:53: VBG pH 7.37, VBG pCO2 43.8, VBG pO2 53.9 H, VBG HCO3 24.5, VBG Total CO2 25.9, VBG O2 Saturation 87.4 H, VBG Base Excess -0.8, VBG Lactic Acid 1.4 I & O for Last 24 hours: Intake & Output 07/16/24 07/17/24 07/18/24 07/19/24 23:59 23:59 23:59 23:59 Weight 79.492 kg Constitutional Constitutional: no acute distress *Routine HEENT Exam Head: Present normocephalic Eye: Present EOMI and PERRL ENT: Present mucous membranes moist *Routine Neck Exam Neck: Present supple; Absent lymphadenopathy *Routine Respiratory Exam Respiratory: Present diminished air movement; Absent CTA bilaterally *Routine Cardiovascular Exam Cardiovascular: Present RRR *Routine Abdominal Exam Abdominal: Present soft and normoactive bowel sounds; Absent tenderness *Routine Rectal Exam Rectal:: deferred *Routine Genitalia Exam Genitalia:: deferred *Routine Extremities Exam Extremities: Absent cyanosis, clubbing or edema *Routine Skin Exam Skin: Present warm; Absent rash *Routine Neurological Exam Neurological: Present alert and oriented X3 Assessment and Plan *Assessment and plan (1) Acute exacerbation of chronic obstructive pulmonary disease: Status: Acute Category: Medical Code(s): J44.1 - Chronic obstructive pulmonary disease with (acute) exacerbation (2) Community acquired pneumonia: Status: Acute Category: Medical Code(s): J18.9 - Pneumonia, unspecified organism Plan Irvin Beasley is a 63-year-old male with a medical history significant for rectal carcinoma s/p resection (follows [facility], considering starting chemotherapy in August), COPD on room air, hypertension who presents with progressive shortness of breath, productive cough over the past few days. He states his PCP gave him azithromycin, steroids 2 days ago which she picked up yesterday. However, he states he continued to feel worse today prompting him to come to the ED. On arrival, patient was hypoxic to 85% on room air, improved with 2 L nasal cannula. Tachypneic up to 26 which improved with DuoNeb. WBC 14.4, sodium 129, troponin 0.09, BNP 872. CXR suggestive of right perihilar pneumonia. Given ceftriaxone, azithromycin in the ED. Case discussed with ED provider and decision was made to admit patient for acute hypoxic respiratory failure secondary to community-acquired pneumonia and COPD exacerbation. #Acute hypoxic respiratory failure ? Secondary to COPD exacerbation, community-acquired pneumonia. ? Currently requiring 4 L nasal cannula. #Community-acquired pneumonia ? Presents with worsening shortness of breath, productive cough. ? Initial WBC 14.4, CXR suggesting right perihilar pneumonia. ? IV ceftriaxone, doxycycline day 1. ? Follow-up blood, sputum culture. #COPD exacerbation ? Diminished air movement throughout all lung woods. Increased productive cough. ? DuoNeb every 6 hours, Pulmicort twice daily. ? Prednisone 40 mg day 2/5 starting tomorrow. Patient had a dose at home today. #History of rectal carcinoma ? S/p resection at , they are considering starting chemotherapy in August. ? MiraLAX daily. #Hypertension ? Resume home medications once reconciled. Full code DVT prophylaxis: Lovenox 40 mg
[2024-07-19] MEDS: BUDESONIDE 0.5MG/2ML NEB 0.5 MG IH (19:05)
[2024-07-19 19:41] LABS: Troponin I 0.09 ng/ml (0.00-0.034)
[2024-07-19] MEDS: DOXYCYCLINE HYCLATE 100 MG in 0.9 % SODIUM CHLORIDE 250 ML 166.667 MG IV (20:32)
[2024-07-19] MEDS: levETIRAcetam 500 MG TABLET PO (20:57)
[2024-07-19] MEDS: BUSPIRONE HCL 10 MG TABLET PO (21:56)
[2024-07-19] MEDS: TRAZODONE 50MG TABLET 50 MG PO (22:21)
[2024-07-19 22:31] LABS: Troponin I 0.08 ng/ml (0.00-0.034)
[2024-07-20] VITALS (12 sets, daily range): BP systolic 121–164; BP diastolic 68–82; PULSE 78–113; RESP 24–26; TEMP 36.9–37.3; O2SAT 90–97; BMI 22.2
[2024-07-20] MEDS: IPRATROPIUM/ALBUTEROL 3 ML NEB IH ×6 (00:07→22:02)
--- NOTE | 2024-07-20 06:17 | PC.NURSE ---
Patient is alert and oriented, some spells of slight confusion. Patient can be hard to understand at times. Patient does become anxious with staff in the room at times. Patient normally continent using toilet, but patient had 1 episode of diarrhea this shift, incontinent while waiting for staff to assist. Patient cleaned up and linens changed. IV abx. Lung sounds diminished. 3L NC. Seizure pads placed on bed. Bed alarm on. Call light in reach.
[2024-07-20] MEDS: BUDESONIDE 0.5MG/2ML NEB 0.5 MG IH ×2 (06:20→18:41)
[2024-07-20 06:33] LABS: Basophils % 0.1 % (0.1-2.0); Hematocrit 38.1 % (42.0-52.0); Hemoglobin 12.9 g/dL (14.1-18.0); Lymphocytes # 0.5 K/mm3 (0.7-4.5); Lymphocytes % 4.6 % (10-50); Mean Corpuscular HGB Conc 33.9 g/dL (31.8-35.4); Mean Corpuscular Hemoglobin 29.6 pg (27.0-31.2); Mean Corpuscular Volume 87.4 fl (80-94); Mean Platelet Volume 9.5 fl (7.4-10.4); Monocytes # 0.7 K/mm3 (0.1-1.0); Monocytes % 6.3 % (1.7-9.3); Neutrophils # 9.1 K/mm3 (1.8-7.8); Neutrophils % 88.5 % (37.0-80.0); Platelet Count 126 K/mm3 (142-424); Red Blood Count 4.36 M/mm3 (4.60-6.20); Red Cell Distribution Width 12.3 % (11.5-17.5); White Blood Count 10.3 K/mm3 (4.8-10.8)
[2024-07-20 06:46] LABS: Alanine Aminotransferase 62 U/L (12-78); Albumin Level 3.7 g/dl (3.5-5.0); Albumin/Globulin Ratio 1.4 (1.1-1.8); Alkaline Phosphatase 100 U/L (38-126); Anion Gap 12.2 mEq/L (5-15); Aspartate Amino Transferase 121 U/L (17-59); Bilirubin,Total 0.5 mg/dl (0.2-1.3); Blood Urea Nitrogen 23 mg/dl (9-20); Calcium 8.7 mg/dl (8.4-10.2); Carbon Dioxide 26 mmol/L (22.0-30.0); Chloride 98 mmol/L (98-107); Chol/HDL Ratio 1.9 (1-3.5); Cholesterol 85 mg/dl (140-200); Creatinine Clearance Estimated 89 mL/min (50-200); Estimated Glomerular Filt Rate 85 ml/min (>60); GFR (African American) 103 ML/MIN (>60); Globulin 2.6 g/dL (1.3-3.2); Glucose 93 mg/dl (74-100); HDL Cholesterol 44 mg/dl (40-60); Magnesium 1.5 mg/dl (1.6-2.3); Potassium 4.2 mmoL/L (3.5-5.1); Sodium 132 mmol/L (136-145); Total Protein,Serum 6.3 g/dl (6.3-8.2); Triglycerides 50 mg/dl (30-150); VLDL Cholesterol 10 mg/dL (0-40)
[2024-07-20 06:59] LABS: Direct LDL Cholesterol < 30.00 mg/dL (100-129)
--- NOTE | 2024-07-20 07:53 | HMH.PHAINT1 ---
Pharmacy Intervention Comments: HOME MEDICATION LIST VERIFIED USING LIST FROM OUTPATIENT PHARMACY AND PT INTERVIEW
[2024-07-20] MEDS: MAGNESIUM SULFATE IN WATER 2 GM/50 ML PIGGYBACK IV ×2 (07:58→08:43)
[2024-07-20] MEDS: POLYETHYLENE GLYCOL 3350 17 GM PACKET PO (08:08)
[2024-07-20] MEDS: BUSPIRONE HCL 10 MG TABLET PO ×3 (08:09→21:00)
[2024-07-20] MEDS: ASPIRIN EC 81MG TABLET 81 MG PO (08:09)
[2024-07-20] MEDS: predniSONE 20MG TAB 40 MG PO (08:09)
[2024-07-20] MEDS: levETIRAcetam 500 MG TABLET PO ×2 (08:09→21:00)
[2024-07-20] MEDS: ENOXAPARIN 40MG/0.4ML SYRINGE 40 MG SUBCUT (08:09)
[2024-07-20] MEDS: AMLODIPINE 10MG TABLET 10 MG PO (08:43)
--- NOTE | 2024-07-20 09:33 | EXP.PULM.CON ---
History of Present Illness History of present illness: Mr. Beasley is a 63-year-old male current smoker greater than [id number] smoking psychiatry diagnosis of COPD using Symbicort and Spiriva inhalers at baseline, not using any oxygen supplementation, history of rectal cancer status post resection around 2022 have not received any chemotherapy secondary to poor functional status admits surveillance with no evidence of recurrence last seen oncology at [facility] around AugustSeptember 2023 as per the patient, presented to the ER with worsening respiratory distress cough and pulmonary was called for further evaluation and management. Admits worsening respiratory status for the last 5 to 7 days. Denies any known sick contacts. Admits worsening cough and increasing productive phlegm. [facility] Disclaimer: The information contained in this section may have been updated after the patient was seen, as this information can be updated by other users. Medical History (Updated 07/20/24 @ 11:19 by Radha Lafleur MD) Acute respiratory failure with hypoxemia Pneumonia AAA (abdominal aortic aneurysm) Rectal cancer H/O: CVA (cerebrovascular accident) Hypertension Epilepsy Anxiety H/O: CVA (cerebrovascular accident) Surgical History History of left hip replacement History of colonoscopy Social History Smoking Status: Current every day smoker tobacco type: cigarettes packs per day: 1 alcohol intake: former substance use type: marijuana current occupational status: disabled Travel in the last 8 weeks: None household members: none housing: house lives independently: Yes marital status: single Have you lived/traveled outside US in past 30 days?: No Contact w/someone who lives/traveled outside US past 30 days?: No Exposure to someone with infectious disease in past 14 days?: No Do you have a fever (greater than 100.4 F or 38 C)?: Yes Have you tested positive for COVID-19: No Exposed to someone with COVID-19 in past 14 days?: No Do you have a sore throat?: No Do you have a cough?: No Do you have any weakness?: No Do you have any diarrhea?: No Are you experiencing any unusual bleeding?: No Do you have any muscle aches/pain?: No Do you have any abdominal pain?: No Are you experiencing loss of taste or smell?: No Review of Systems Constitutional Constitutional: Reports anorexia, Reports body ache(s) and Reports fatigue Eyes Eyes: Denies eye discharge, Denies dry eyes, Denies irritation and Denies itchy eyes ENT Ears, Nose, Mouth, and Throat: Denies epistaxis, Denies facial pain, Denies lip swelling and Denies throat swelling *Cardiovascular Cardiovascular: Reports dyspnea and Reports dyspnea on exertion *Respiratory Respiratory: Reports change in phlegm color, Reports chest congestion, Reports cough, Reports dyspnea, Reports dyspnea on exertion, Reports excessive phlegm production and Reports wheezing *Gastrointestinal Gastrointestinal: Denies abdominal pain, Denies belching and Denies cramping *Musculoskeletal Musculoskeletal: Reports back pain, Reports myalgias and Reports other (No small joint swelling or Pain) Psychiatric Psychiatric: Denies homicidal ideation and Denies suicidal ideation Endocrine Endocrine: Reports fatigue and Denies heat intolerance Hematologic/Lymphatic Hematologic/Lymphatic: Denies easy bleeding and Denies lymphadenopathy Allergic/Immunologic Allergic/Immunologic: Denies itchy eyes, Denies lip swelling, Denies throat swelling and Reports wheezing Pulmonology Exam Inpatient Vital signs and Labs for Last 24 Hours: Temp Pulse Resp BP Pulse Ox O2 Del Method O2 Flow Rate 98.9 F 99 H 26 H 164/82 H 96 Nasal Cannula 3 07/20/24 07:45 07/20/24 07:45 07/20/24 07:45 07/20/24 07:45 07/20/24 07:45 07/20/24 09:00 07/20/24 09:00 Laboratory Results - last 24 hr 07/19/24 15:42: WBC 14.4 H, RBC 4.46 L, Hgb 13.6 L, Hct 38.7 L, MCV 86.8, MCH 30.5, MCHC 35.1, RDW 12.4, Plt Count 128 L, MPV 9.2, Neut % (Auto) 92.3 H, Lymph % (Auto) 1.9 L, [place] % (Auto) 5.1, Eos % (Auto) 0.0 L, Baso % (Auto) 0.1, Neut # (Auto) 13.3 H, Lymph # (Auto) 0.3 L, [place] # (Auto) 0.7, Eos # (Auto) 0.0, Baso # (Auto) 0.0, Total Counted 100, Neutrophils % (Manual) 94 H, Band Neutrophils % 3.0, Lymphocytes % (Manual) 2 L, Monocytes % (Manual) 1 L, Platelet Estimate Slight decrease, RBC Morphology Normal, Sodium 129 L, Potassium 4.3, Chloride 95 L, Carbon Dioxide 25, Anion Gap 13.3, BUN 25 H, Creatinine 0.80, Estimated Creat Clear 89, Estimated GFR 98, Est GFR ( Amer) 118, Glucose 112 H, Calcium 8.9, Total Bilirubin 0.7, AST 123 H, ALT 60, Alkaline Phosphatase 107, Troponin I 0.09 H, NT-Pro-B Natriuret Pep 872 H, Total Protein 6.8, Albumin 3.9, Globulin 2.9, Albumin/Globulin Ratio 1.3 07/19/24 15:53: VBG pH 7.37, VBG pCO2 43.8, VBG pO2 53.9 H, VBG HCO3 24.5, VBG Total CO2 25.9, VBG O2 Saturation 87.4 H, VBG Base Excess -0.8, VBG Lactic Acid 1.4 07/19/24 19:07: Troponin I 0.09 H 07/19/24 22:03: Troponin I 0.08 H 07/20/24 05:43: WBC 10.3 D, RBC 4.36 L, Hgb 12.9 L, Hct 38.1 L, MCV 87.4, MCH 29.6, MCHC 33.9, RDW 12.3, Plt Count 126 L, MPV 9.5, Neut % (Auto) 88.5 H, Lymph % (Auto) 4.6 L, [place] % (Auto) 6.3, Eos % (Auto) 0.0 L, Baso % (Auto) 0.1, Neut # (Auto) 9.1 H, Lymph # (Auto) 0.5 L, [place] # (Auto) 0.7, Eos # (Auto) 0.0, Baso # (Auto) 0.0, Sodium 132 L, Potassium 4.2, Chloride 98, Carbon Dioxide 26, Anion Gap 12.2, BUN 23 H, Creatinine 0.90, Estimated Creat Clear 89, Estimated GFR 85, Est GFR ( Amer) 103, Glucose 93, Calcium 8.7, Magnesium 1.5 L, Total Bilirubin 0.5, AST 121 H, ALT 62, Alkaline Phosphatase 100, Total Protein 6.3, Albumin 3.7, Globulin 2.6, Albumin/Globulin Ratio 1.4, Triglycerides 50, Cholesterol 85 L, LDL Cholesterol Direct < 30.00 L, VLDL Cholesterol 10, HDL Cholesterol 44, Cholesterol/HDL Ratio 1.9 I & O for Labs for Last 24 Hours: Intake & Output 07/17/24 07/18/24 07/19/24 07/20/24 23:59 23:59 23:59 23:59 Intake Total 520 / 520 Output Total 150 / 150 0 / 0 Balance -150 / 100 520 / 520 Weight 175 lb 4 oz 182 lb 8 oz Microbiology Reports for the Last 24 Hours: Microbiology 07/19/24 19:10 Sputum - Expectorated Sputum Gram Stain - Final Constitutional: Present severe distress Head: Present normocephalic and atraumatic ENT: Present normal exam, normal oropharynx and mucous membranes moist Neck: Present normal inspection and full ROM Respiratory: Present prolonged expiratory phase, respiratory distress, rhonchi, wheezes and distant breath sounds; Absent able to speak in complete sentences Cardiac: Present S1/S2, Tachycardia and radial pulses present GI: Present soft and distention; Absent tenderness or guarding Skin: Present intact; Absent cyanosis or jaundice Neuro: Present alert, awake and oriented x 3 Extremities: Present normal inspection; Absent clubbing or cyanosis Psychiatric: Present normal affect and cooperative Meds Home Medications and Allergies Home Medications ?Medication ?Instructions ?Recorded ?Confirmed ?Type atorvastatin 40 mg tablet 40 mg PO HS Cholesterol #90 tabs 05/29/21 07/19/24 Rx lacosamide 200 mg tablet 200 mg PO BID SEIZURES #60 tabs 07/18/21 07/19/24 Rx amlodipine 10 mg tablet 10 mg PO DAILY 10/08/22 07/19/24 History aspirin 81 mg tablet,delayed 81 mg PO DAILY thinner 10/08/22 07/19/24 History release buspirone 10 mg tablet 10 mg PO TID 10/08/22 07/19/24 History levetiracetam 500 mg tablet 500 mg PO BID 10/08/22 07/20/24 History (Keppra) pantoprazole 20 mg tablet,delayed 20 mg PO DAILY 10/08/22 07/19/24 History release trazodone 50 mg tablet 50 mg PO HS 03/23/23 07/19/24 History famotidine 20 mg tablet 20 mg PO HS 07/20/24 07/20/24 History fluticasone fur. 100 mcg-umeclid 1 ea inhalation DAILY 07/20/24 07/20/24 History 62.5 mcg-vilant 25 mcg inhalat.powder (Trelegy Ellipta) lacosamide 50 mg tablet 50 mg PO BID 07/20/24 07/20/24 History New Prescriptions to Start Prescriptions: Allergies Allergy/AdvReac Type Severity Reaction Status Date / Time No Known Allergies Allergy Verified 03/23/23 11:03 Results Laboratory Findings 07/20/24 05:43 07/20/24 05:43 Abnormal lab findings: Abnormal Labs 07/19/24 07/19/24 07/19/24 15:42 15:53 19:07 WBC 14.4 H RBC 4.46 L Hgb 13.6 L Hct 38.7 L Plt Count 128 L Neut % (Auto) 92.3 H Lymph % (Auto) 1.9 L Eos % (Auto) 0.0 L Neut # (Auto) 13.3 H Lymph # (Auto) 0.3 L Neutrophils % (Manual) 94 H Lymphocytes % (Manual) 2 L Monocytes % (Manual) 1 L VBG pO2 53.9 H VBG O2 Saturation 87.4 H Sodium 129 L Chloride 95 L BUN 25 H Glucose 112 H Magnesium AST 123 H Troponin I 0.09 H 0.09 H NT-Pro-B Natriuret Pep 872 H Cholesterol LDL Cholesterol Direct 07/19/24 07/20/24 22:03 05:43 WBC RBC 4.36 L Hgb 12.9 L Hct 38.1 L Plt Count 126 L Neut % (Auto) 88.5 H Lymph % (Auto) 4.6 L Eos % (Auto) 0.0 L Neut # (Auto) 9.1 H Lymph # (Auto) 0.5 L Neutrophils % (Manual) Lymphocytes % (Manual) Monocytes % (Manual) VBG pO2 VBG O2 Saturation Sodium 132 L Chloride BUN 23 H Glucose Magnesium 1.5 L AST 121 H Troponin I 0.08 H NT-Pro-B Natriuret Pep Cholesterol 85 L LDL Cholesterol Direct < 30.00 L Assessment and Plan *Assessment and plan (1) Pneumonia: Status: Acute Category: Medical Code(s): J18.9 - Pneumonia, unspecified organism (2) Acute exacerbation of chronic obstructive pulmonary disease: Status: Acute Category: Medical Code(s): J44.1 - Chronic obstructive pulmonary disease with (acute) exacerbation (3) Acute respiratory failure with hypoxemia: Status: Acute Category: Medical Code(s): J96.01 - Acute respiratory failure with hypoxia Plan Mr. Beasley is a 63-year-old male current smoker greater than [id number] smoking psychiatry diagnosis of COPD using Symbicort and Spiriva inhalers at baseline, not using any oxygen supplementation, history of rectal cancer status post resection around 2022 have not received any chemotherapy secondary to poor functional status admits surveillance with no evidence of recurrence last seen oncology at [facility] around AugustSeptember 2023 as per the patient, presented to the ER with worsening respiratory distress cough and pulmonary was called for further evaluation and management. Admits worsening respiratory status for the last 5 to 7 days. Denies any known sick contacts. Admits worsening cough and increasing productive phlegm. Patient recently started on Z-Antonio and steroids as an outpatient basis by primary care physician. Chest x-ray concerning for bilateral consolidative changes right greater than left extensive. Hyperinflated lungs. Neutrophilic predominant leukocytosis upon admission improving. On examination severe respiratory distress. Bilateral decreased breath sounds. Plan: Follow-up respiratory viral PCR panel. Admits positive for influenza as an outpatient basis. Will follow-up with results. Follow-up with CT PE protocol DuoNebs every 4 hours along with Pulmicort every 12 scheduled Continue ceftriaxone azithromycin pending sputum culture results Continue prednisone 40 mg daily
--- NOTE | 2024-07-20 09:40 | EXP.CARD.CON ---
History of Present Illness History of Present Illness Consult date: 07/20/24 Requesting physician: Santosh Leon Chief complaint: Elevated troponins Additional Medical History:: 1. Borderline infrarenal AAA A. 3 cm in 01/2023, workup at [facility] 2. History of rectal cancer A. s/p surgery 12/2022 3. Tobacco use A. COPD 4. HTN A. Echo, 2022, EF 60% with no valve disease 5. History of CVA with right MCA stenting, 2015 6. Hyperlipidemia A. <30 on 07/20/2024 on statin therapy 7. Abnormal EKG A. 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 Normal Farhad myoview, 2016, [facility] 8. History of GI bleed with duodenal ulcer and bleeding in colon on EGD/Colonoscopy, 06/2019 A. Admission Hgb 3.5 9. Epilepsy A. on keppra and Vimpat 10. Remote history of drug and alcohol abuse History of present illness: Irvin Beasley is a 63-year-old male with a medical history significant for rectal carcinoma s/p resection (follows [facility]ology, considering starting chemotherapy in August), COPD on room air, hypertension who presents with progressive shortness of breath, productive cough over the past few days. He states his PCP gave him azithromycin, steroids 2 days ago which she picked up yesterday. However, he states he continued to feel worse today prompting him to come to the ED. On arrival, patient was hypoxic to 85% on room air, improved with 2 L nasal cannula. Tachypneic up to 26 which improved with DuoNeb. WBC 14.4, sodium 129, troponin 0.09, BNP 872. CXR suggestive of right perihilar pneumonia. Given ceftriaxone, azithromycin in the ED. Case discussed with ED provider and decision was made to admit patient for acute hypoxic respiratory failure secondary to community-acquired pneumonia and COPD exacerbation. The above per Dr. Leon Cardiology consulted due to elevated troponins. Pt denies any chest pain, just short of breath for about 3 days. No prior cardiac history. Echo results from this AM pending. [facility] Disclaimer: The information contained in this section may have been updated after the patient was seen, as this information can be updated by other users. Medical History (Updated 07/20/24 @ 11:19 by Radha Lafleur MD) Acute respiratory failure with hypoxemia Pneumonia AAA (abdominal aortic aneurysm) Rectal cancer H/O: CVA (cerebrovascular accident) Hypertension Epilepsy Anxiety H/O: CVA (cerebrovascular accident) Surgical History History of left hip replacement History of colonoscopy Social History Smoking Status: Current every day smoker tobacco type: cigarettes packs per day: 1 alcohol intake: former substance use type: marijuana current occupational status: disabled Travel in the last 8 weeks: None household members: none housing: house lives independently: Yes marital status: single Have you lived/traveled outside US in past 30 days?: No Contact w/someone who lives/traveled outside US past 30 days?: No Exposure to someone with infectious disease in past 14 days?: No Do you have a fever (greater than 100.4 F or 38 C)?: Yes Have you tested positive for COVID-19: No Exposed to someone with COVID-19 in past 14 days?: No Do you have a sore throat?: No Do you have a cough?: No Do you have any weakness?: No Do you have any diarrhea?: No Are you experiencing any unusual bleeding?: No Do you have any muscle aches/pain?: No Do you have any abdominal pain?: No Are you experiencing loss of taste or smell?: No Review of Systems Review of Systems Review of systems:: pertinent systems reviewed and negative unless documented below *Cardiovascular Cardiovascular: Denies chest pain and Reports dyspnea *Respiratory Respiratory: Reports dyspnea Exam Data for Last 24 hours Vital signs and Labs for Last 24 Hours: Temp Pulse Resp BP Pulse Ox O2 Del Method O2 Flow Rate 98.9 F 99 H 26 H 164/82 H 96 Nasal Cannula 3 07/20/24 07:45 07/20/24 07:45 07/20/24 07:45 07/20/24 07:45 07/20/24 07:45 07/20/24 09:00 07/20/24 09:00 Laboratory Results - last 24 hr 07/19/24 15:42: WBC 14.4 H, RBC 4.46 L, Hgb 13.6 L, Hct 38.7 L, MCV 86.8, MCH 30.5, MCHC 35.1, RDW 12.4, Plt Count 128 L, MPV 9.2, Neut % (Auto) 92.3 H, Lymph % (Auto) 1.9 L, [place] % (Auto) 5.1, Eos % (Auto) 0.0 L, Baso % (Auto) 0.1, Neut # (Auto) 13.3 H, Lymph # (Auto) 0.3 L, [place] # (Auto) 0.7, Eos # (Auto) 0.0, Baso # (Auto) 0.0, Total Counted 100, Neutrophils % (Manual) 94 H, Band Neutrophils % 3.0, Lymphocytes % (Manual) 2 L, Monocytes % (Manual) 1 L, Platelet Estimate Slight decrease, RBC Morphology Normal, Sodium 129 L, Potassium 4.3, Chloride 95 L, Carbon Dioxide 25, Anion Gap 13.3, BUN 25 H, Creatinine 0.80, Estimated Creat Clear 89, Estimated GFR 98, Est GFR ( Amer) 118, Glucose 112 H, Calcium 8.9, Total Bilirubin 0.7, AST 123 H, ALT 60, Alkaline Phosphatase 107, Troponin I 0.09 H, NT-Pro-B Natriuret Pep 872 H, Total Protein 6.8, Albumin 3.9, Globulin 2.9, Albumin/Globulin Ratio 1.3 07/19/24 15:53: VBG pH 7.37, VBG pCO2 43.8, VBG pO2 53.9 H, VBG HCO3 24.5, VBG Total CO2 25.9, VBG O2 Saturation 87.4 H, VBG Base Excess -0.8, VBG Lactic Acid 1.4 07/19/24 19:07: Troponin I 0.09 H 07/19/24 22:03: Troponin I 0.08 H 07/20/24 05:43: WBC 10.3 D, RBC 4.36 L, Hgb 12.9 L, Hct 38.1 L, MCV 87.4, MCH 29.6, MCHC 33.9, RDW 12.3, Plt Count 126 L, MPV 9.5, Neut % (Auto) 88.5 H, Lymph % (Auto) 4.6 L, [place] % (Auto) 6.3, Eos % (Auto) 0.0 L, Baso % (Auto) 0.1, Neut # (Auto) 9.1 H, Lymph # (Auto) 0.5 L, [place] # (Auto) 0.7, Eos # (Auto) 0.0, Baso # (Auto) 0.0, Sodium 132 L, Potassium 4.2, Chloride 98, Carbon Dioxide 26, Anion Gap 12.2, BUN 23 H, Creatinine 0.90, Estimated Creat Clear 89, Estimated GFR 85, Est GFR ( Amer) 103, Glucose 93, Calcium 8.7, Magnesium 1.5 L, Total Bilirubin 0.5, AST 121 H, ALT 62, Alkaline Phosphatase 100, Total Protein 6.3, Albumin 3.7, Globulin 2.6, Albumin/Globulin Ratio 1.4, Triglycerides 50, Cholesterol 85 L, LDL Cholesterol Direct < 30.00 L, VLDL Cholesterol 10, HDL Cholesterol 44, Cholesterol/HDL Ratio 1.9 I & O for Last 24 hours: Intake & Output 07/17/24 07/18/24 07/19/24 07/20/24 11:59 11:59 11:59 11:59 Intake Total 520 / 520 Output Total 150 / 150 Balance 370 / 370 Weight 182 lb 8 oz Microbiology Reports for the Last 24 Hours: Microbiology 07/19/24 19:10 Sputum - Expectorated Sputum Gram Stain - Final Constitutional Constitutional: mild distress *Routine Respiratory Exam Respiratory: Present decreased breath sounds; Absent rhonchi or wheezes *Routine Cardiovascular Exam Cardiovascular: Present RRR; Absent murmur, gallop or rubs *Routine Extremities Exam Extremities: Absent edema *Routine Neurological Exam Neurological: Present alert, oriented X3 and CN II-XII intact Meds Home Medications and Allergies Home Medications ?Medication ?Instructions ?Recorded ?Confirmed ?Type atorvastatin 40 mg tablet 40 mg PO HS Cholesterol #90 tabs 05/29/21 07/19/24 Rx lacosamide 200 mg tablet 200 mg PO BID SEIZURES #60 tabs 07/18/21 07/19/24 Rx amlodipine 10 mg tablet 10 mg PO DAILY 10/08/22 07/19/24 History aspirin 81 mg tablet,delayed 81 mg PO DAILY thinner 10/08/22 07/19/24 History release buspirone 10 mg tablet 10 mg PO TID 10/08/22 07/19/24 History levetiracetam 500 mg tablet 500 mg PO BID 10/08/22 07/20/24 History (Keppra) pantoprazole 20 mg tablet,delayed 20 mg PO DAILY 10/08/22 07/19/24 History release trazodone 50 mg tablet 50 mg PO HS 03/23/23 07/19/24 History famotidine 20 mg tablet 20 mg PO HS 07/20/24 07/20/24 History fluticasone fur. 100 mcg-umeclid 1 ea inhalation DAILY 07/20/24 07/20/24 History 62.5 mcg-vilant 25 mcg inhalat.powder (Trelegy Ellipta) lacosamide 50 mg tablet 50 mg PO BID 07/20/24 07/20/24 History New Prescriptions to Start Prescriptions: Allergies Allergy/AdvReac Type Severity Reaction Status Date / Time No Known Allergies Allergy Verified 03/23/23 11:03 Assessment and Plan *Assessment and plan (1) Community acquired pneumonia: Status: Acute Qualifiers: Laterality: right Lung location: middle lobe of lung Qualified Code(s): J18.9 - Pneumonia, unspecified organism Category: Medical Code(s): J18.9 - Pneumonia, unspecified organism (2) Respiratory failure: Status: Acute Qualifiers: Chronicity: acute on chronic Respiratory failure complication: hypoxia Qualified Code(s): J96.21 - Acute and chronic respiratory failure with hypoxia Category: Medical Code(s): J96.90 - Respiratory failure, unspecified, unspecified whether with hypoxia or hypercapnia (3) Elevated troponin level not due myocardial infarction: Status: Acute Category: Medical Code(s): R79.89 - Other specified abnormal findings of blood chemistry (4) Acute exacerbation of chronic obstructive pulmonary disease: Status: Acute Category: Medical Code(s): J44.1 - Chronic obstructive pulmonary disease with (acute) exacerbation (5) AAA (abdominal aortic aneurysm): Status: Acute Qualifiers: Abdominal aorta location: infrarenal aorta Presence of rupture: without rupture Qualified Code(s): I71.43 - Infrarenal abdominal aortic aneurysm, without rupture Category: Medical Code(s): I71.40 - Abdominal aortic aneurysm, without rupture, unspecified (6) History of stroke: Status: Acute Category: Medical Code(s): Z86.73 - Personal history of transient ischemic attack (TIA), and cerebral infarction without residual deficits (7) Hypertension: Status: Chronic Qualifiers: Hypertension type: primary hypertension Qualified Code(s): I10 - Essential (primary) hypertension Category: Medical Code(s): I10 - Essential (primary) hypertension (8) Hyperlipidemia: Status: Chronic Qualifiers: Hyperlipidemia type: unspecified Qualified Code(s): E78.5 - Hyperlipidemia, unspecified Category: Medical Code(s): E78.5 - Hyperlipidemia, unspecified (9) Tobacco dependence syndrome: Status: Chronic Category: Medical Code(s): F17.200 - Nicotine dependence, unspecified, uncomplicated Plan 1. Resp Failure with hypoxia related to pneumonia/influenza on top of COPD -on Ceftriaxone, doxycycline, Tamiflu, prednisone and DuoNeb treatment -Pulmonary consulted 2. Elevated troponins/BNP consistent with type II non-STEMI -Echocardiogram pending -Continue aspirin, statin and amlodipine 3. Tobacco use with COPD -Cessation recommended 4. History of hypertension -amlodipine 10 mg 5. History of CVA with neuro stenting, 2016 -on ASA 6. Hyperlipidemia -On statin therapy -LDL less than 30 7. Chronic anemia -stable between 12 and 13 8. Thrombocytopenia -stable around 126K 9. Hyponatremia, improving -132 today 10. Hypomagnesemia -s/p replacement 11. History of rectal cancer status post surgery, 12/2022 -Considering chemotherapy to start in August of this year 12. Epilepsy -on Keppra and Vimpat 13. History of infrarenal AAA, borderline -3 cm in 2022 Echo shows normal to hyperdynamic EF with no wall motion abnormalities. Will not pursue cardiac cath during this admission. Will see as outpatient and consider outpatient stress testing. Elevated troponins likely due to strain from respiratory issues.
[2024-07-20 09:46] LABS: Adenovirus,PCR Not Detected (NotDetected); Bordetella Pertussis Not Detected (NotDetected); Chlamydophila Pneumoniae, PCR Not Detected (NotDetected); Coronavirus 19, PCR Not Detected (NotDetected); Coronavirus 229E Not Detected (NotDetected); Coronavirus NL63 Not Detected (NotDetected); Coronavirus OC43 Not Detected (NotDetected); Coronovirus HKU1,PCR Not Detected (NotDetected); Human Metapneumovirus Not Detected (NotDetected); Influenza A, PCR Not Detected (NotDetected); Influenza AH1, PCR Not Detected (NotDetected); Influenza AH3,PCR Not Detected (NotDetected); Influenza B, PCR Not Detected (NotDetected); Mycoplasma Pneumoniae, PCR Not Detected (NotDetected); Parainfluenza 1, PCR Not Detected (NotDetected); Parainfluenza 2, PCR Not Detected (NotDetected); Parainfluenza 3, PCR Not Detected (NotDetected); Parainfluenza 4, PCR Not Detected (NotDetected); Respiratory Syncytial Virus Not Detected (NotDetected); Rhinovirus/Enterovirus Not Detected (NotDetected)
[2024-07-20] MEDS: CEFTRIAXONE 1 GM 1 GM in 0.9 % SODIUM CHLORIDE 50 ML IV (10:00)
--- NOTE | 2024-07-20 10:17 | CT_ITS ---
FINAL REPORT TECHNIQUE: The patient was injected with IV contrast. Axial images were obtained through the chest in a PE protocol. 3-D reconstruction images were also performed. Individualized dose reduction techniques using automated exposure control or adjustment of the MA and/or KV according to patient's size were employed. CLINICAL HISTORY: Hypoxia COMPARISON: None FINDINGS: There is no evidence of filling defects in the central pulmonary arteries. There is suboptimal opacification of the distal pulmonary arteries. There is no aortic dissection. There is no axillary adenopathy. There is no hilar or mediastinal adenopathy. The ascending aorta measures up to 3.9 cm in diameter. The heart size is normal. There is no pericardial or pleural effusion. No suspicious infiltrate or nodule is identified. There are advanced changes of centrilobular emphysema with large bulla in the left upper lobe measuring up to 6.5 cm. Patchy airspace opacity in the right lung base is probably due to pneumonia. Limited images of the upper abdomen demonstrate gallstones in the dependent portion of the gallbladder. IMPRESSION: No definite pulmonary embolism. Advanced changes of centrilobular emphysema. Gallstones. Reviewed, Interpreted and Dictated by Tino Cyr MD Transcribed by Xiomara Cason Authenticated and [facility]
[2024-07-20] MEDS: OSELTAMIVIR 75MG CAPSULE 75 MG PO ×2 (10:21→21:00)
--- NOTE | 2024-07-20 10:39 | PC.NURSE ---
Patient left floor with radiology for CT
[2024-07-20] MEDS: SODIUM CHLORIDE 0.9% 10ML SYR (RAD ONLY) 10 ML IV (10:58)
[2024-07-20] MEDS: IOPAMIDOL-370 (76%);100ML BOTTLE 100 ML IV (10:58)
[2024-07-20] MEDS: 0.9 % SODIUM CHLORIDE 50 ML VIAL 40 ML IV (10:59)
[2024-07-20] MEDS: DOXYCYCLINE HYCLATE 100 MG in 0.9 % SODIUM CHLORIDE 250 ML 166.667 MG IV ×2 (11:05→21:00)
[2024-07-20 12:48] LABS: Influenza AH1, 2009 Detected (NotDetected)
--- NOTE | 2024-07-20 14:02 | HMH.OTEV ---
OT Inpatient Evaluation Rehab OT IP Evaluation Start: 07/20/24 11:52 Freq: ONCE Status: Active Protocol: Document 07/20/24 13:59 [facility] (Rec: 07/20/24 14:02 [facility] [id number]) Rehab OT IP Assessment Subjective History Pt oriented x 3 on arrival. Pt agreeable to engage in therapy evaluation. Pt admitted on 07/19/24 due to respiratory failure. History and physical: Irvin Beasley is a 63-year- old male with a medical history significant for rectal carcinoma s/p resection ( follows [facility], considering starting chemotherapy in August), COPD on room air, hypertension who presents with progressive shortness of breath, productive cough over the past few days. He states his PCP gave him azithromycin, steroids 2 days ago which she picked up yesterday. However, he states he continued to feel worse today prompting him to come to the ED. On arrival, patient was hypoxic to 85% on room air, improved with 2 L nasal cannula. Tachypneic up to 26 which improved with DuoNeb. WBC 14. 4, sodium 129, troponin 0.09, BNP 872. CXR suggestive of right perihilar pneumonia. Given ceftriaxone, azithromycin in the ED. Case discussed with ED provider and decision was made to admit patient for acute hypoxic respiratory failure secondary to community-acquired pneumonia and COPD exacerbation. Subjective I usually do fine. Pt reports normally he is independent with all ADLs and IADLs. He lives alone. Pt does not normally use any AE during functional transfers. He does not drive. Family assists with grocery shopping and medical appointments as needed. Objective Patient Orientation Person,Place,Birthday Right Upper Extremity Gross ROM WFL Left Upper Extremity Gross ROM WFL Bed Mobility bed mobility-scooting,bed mobility - supine/sit Assist Level Supervision/Stand by Transfer Training Sit/Stand Transfer Assist Level Supervision/Stand by Lower Body Dressing Ability Standby Assistance Performing Toilet Hygiene Ability Standby Assistance Overall Commode/Toilet Transfer Ability Standby Assistance Commode/Toilet Transfer Technique Sit to/from Ambulatory Rehab OT IP prob,goals,plan Problems Date of Evaluation: 07/20/24 Rehab Potential Rehab Potential Innapropriate for Skilled Therapy Discharge Plan OT Discharge Plan Pt appears to be at his baseline with functional transfers and ADL independence . Pt can return home once he is medically stable per physician. Eval Complexity Eval Charge Codes 16043 - Low Complexity PHYSICIAN CERTIFICATION: I certify the specified therapy services for Irvin Beasley are required, authorized, and reviewed every 30 days.
--- NOTE | 2024-07-20 14:08 | HMH.PTEV ---
Physical Therapy Evaluation Rehab PT IP Evaluation Start: 07/20/24 11:52 Freq: ONCE Status: Active Protocol: Document 07/20/24 14:02 [facility] (Rec: 07/20/24 14:07 [email or web address] [id number]) Subjective/History History History Per H&P: rIvin Beasley is a 63-year-old male with a medical history significant for rectal carcinoma s/p resection (follows [facility] , considering starting chemotherapy in August), COPD on room air, hypertension who presents with progressive shortness of breath, productive cough over the past few days. He states his PCP gave him azithromycin, steroids 2 days ago which she picked up yesterday. However, he states he continued to feel worse today prompting him to come to the ED. On arrival, patient was hypoxic to 85% on room air, improved with 2 L nasal cannula. Tachypneic up to 26 which improved with DuoNeb. WBC 14. 4, sodium 129, troponin 0.09, BNP 872. CXR suggestive of right perihilar pneumonia. Given ceftriaxone, azithromycin in the ED. Case discussed with ED provider and decision was made to admit patient for acute hypoxic respiratory failure secondary to community-acquired pneumonia and COPD exacerbation. Subjective Subjective Pt reports he lives alone in a 3-story home and is IND with all mobility without AD use. Pt no longer driving. New diagnosis of cancer in past 12 No months? Rehab PT IP Eval Objective Appearance Patient Behavior Appropriate,Cooperative Patient Orientation Person,Birthday Difficulty following instructions none Speech Pattern Poor Articulation Ambulation Patient Able to Ambulate Yes Ambulation Observation IP General Gait Pattern Observation Antalgic Gait Ambulation Distance (feet) 40 Ambulation Assistive Device None Ambulation Ability Supervision/Stand by Balance Ability to Arise Able, uses arms to help Sitting Balance Steady, safe Standing Balance Steady, wide stance Dynamic Sitting Balance Ability Good Dynamic Standing Balance Ability Good Transfers Bed Transfer Ability Independent Sit to Stand Bed Transfer Ability Supervision/Stand by Rehab PT IP prob,goals,plan Problems Date of Evaluation: 07/20/24 Rehab Potential Rehab Potential Innapropriate for Skilled Therapy Discharge Plan PT Discharge Plan Pt safe to d/c home when deemed medically necessary d/t current level of mobility and home set-up. Pt not appropriate for skilled acute care PT at this time d/t pt?s mobility being at baseline. Eval Complexity Eval Charge Codes 59080 - Moderate Complexity PHYSICIAN CERTIFICATION: I certify the specified therapy services for Irvin Beasley are required, authorized, and reviewed every 30 days.
--- NOTE | 2024-07-20 17:14 | P.PN_ITS ---
Subjective *Date: 07/20/24 *Time: 17:14 Interval history: Patient continues to have pursed lip breathing, though he states that is baseline for him. He states he tested positive for influenza at his PCPs office. Will continue breathing treatments, antibiotics. Pulmonology consulted, ordered CTA. Exam Data for Last 24 hours Vital signs and Labs for Last 24 Hours: Temp Pulse Resp BP Pulse Ox O2 Del Method O2 Flow Rate 98.5 F 80 24 132/71 93 L Nasal Cannula 2 07/20/24 15:50 07/20/24 15:50 07/20/24 15:50 07/20/24 15:50 07/20/24 15:50 07/20/24 15:50 07/20/24 15:50 Laboratory Results - last 24 hr 07/19/24 19:07: Troponin I 0.09 H 07/19/24 22:03: Troponin I 0.08 H 07/20/24 05:43: WBC 10.3 D, RBC 4.36 L, Hgb 12.9 L, Hct 38.1 L, MCV 87.4, MCH 29.6, MCHC 33.9, RDW 12.3, Plt Count 126 L, MPV 9.5, Neut % (Auto) 88.5 H, Lymph % (Auto) 4.6 L, [place] % (Auto) 6.3, Eos % (Auto) 0.0 L, Baso % (Auto) 0.1, Neut # (Auto) 9.1 H, Lymph # (Auto) 0.5 L, [place] # (Auto) 0.7, Eos # (Auto) 0.0, Baso # (Auto) 0.0, Sodium 132 L, Potassium 4.2, Chloride 98, Carbon Dioxide 26, Anion Gap 12.2, BUN 23 H, Creatinine 0.90, Estimated Creat Clear 89, Estimated GFR 85, Est GFR ( Amer) 103, Glucose 93, Calcium 8.7, Magnesium 1.5 L, Total Bilirubin 0.5, AST 121 H, ALT 62, Alkaline Phosphatase 100, Total Protein 6.3, Albumin 3.7, Globulin 2.6, Albumin/Globulin Ratio 1.4, Triglycerides 50, Cholesterol 85 L, LDL Cholesterol Direct < 30.00 L, VLDL Cholesterol 10, HDL Cholesterol 44, Cholesterol/HDL Ratio 1.9 07/20/24 09:40: Chlamy pneumoniae PCR Not detected, Adenovirus (PCR) Not detected, B. pertussis DNA (PCR) Not detected, Coronavirus OC43 (PCR) Not detected, Coronavirus HKU1 (PCR) Not detected, Coronavirus 229E (PCR) Not detected, SARS-CoV-2 (PCR) Not detected, Coronavirus NL63 (PCR) Not detected, Human Metapneumovir PCR Not detected, Influenza A (H1) PCR Not detected, Influ A (H1N1/09) PCR Detected A, Influenza A (H3) PCR Not detected, Influenza Type A (PCR) Not detected, Influenza Type B (PCR) Not detected, M. pneumoniae (PCR) Not detected, Parainfluenza 1 (PCR) Not detected, Parainfluenza 2 (PCR) Not detected, Parainfluenza 3 (PCR) Not detected, Parainfluenza 4 (PCR) Not detected, RSV (PCR) Not detected, Entero/Rhino (PCR) Not detected I & O for Last 24 hours: Intake & Output 07/17/24 07/18/24 07/19/24 07/20/24 23:59 23:59 23:59 23:59 Intake Total 790 / 790 Output Total 150 / 150 0 / 0 Balance -150 / 100 790 / 790 Weight 79.492 kg 82.781 kg Microbiology Reports for the Last 24 Hours: Microbiology 07/19/24 15:42 Blood Blood Culture - Preliminary NO GROWTH AFTER 24 HOURS 07/19/24 15:42 Blood Blood Culture - Preliminary NO GROWTH AFTER 24 HOURS 07/19/24 19:10 Sputum - Expectorated Sputum Gram Stain - Final 07/19/24 19:10 Sputum - Expectorated Sputum Sputum Culture - Preliminary Constitutional Constitutional: no acute distress *Routine HEENT Exam Head: Present normocephalic Eye: Present EOMI and PERRL ENT: Present mucous membranes moist *Routine Neck Exam Neck: Present supple; Absent lymphadenopathy *Routine Respiratory Exam Respiratory: Present diminished air movement; Absent CTA bilaterally *Routine Cardiovascular Exam Cardiovascular: Present RRR *Routine Abdominal Exam Abdominal: Present soft and normoactive bowel sounds; Absent tenderness *Routine Extremities Exam Extremities: Absent cyanosis, clubbing or edema *Routine Skin Exam Skin: Present warm; Absent rash *Routine Neurological Exam Neurological: Present alert and oriented X3 Assessment and Plan *Assessment and plan (1) Acute exacerbation of chronic obstructive pulmonary disease: Status: Acute Category: Medical Code(s): J44.1 - Chronic obstructive pulmonary disease with (acute) exacerbation (2) Community acquired pneumonia: Status: Acute Qualifiers: Laterality: right Lung location: middle lobe of lung Qualified Code(s): J18.9 - Pneumonia, unspecified organism Category: Medical Code(s): J18.9 - Pneumonia, unspecified organism Plan Irvin Beasley is a 63-year-old male with a medical history significant for rectal carcinoma s/p resection (follows [facility], considering starting chemotherapy in August), COPD on room air, hypertension who presents with progressive shortness of breath, productive cough over the past few days. He states his PCP gave him azithromycin, steroids 2 days ago which she picked up yesterday. However, he states he continued to feel worse today prompting him to come to the ED. On arrival, patient was hypoxic to 85% on room air, improved with 2 L nasal cannula. Tachypneic up to 26 which improved with DuoNeb. WBC 14.4, sodium 129, troponin 0.09, BNP 872. CXR suggestive of right perihilar pneumonia. Given ceftriaxone, azithromycin in the ED. Case discussed with ED provider and decision was made to admit patient for acute hypoxic respiratory failure secondary to community-acquired pneumonia and COPD exacerbation. #Acute hypoxic respiratory failure #Influenza A ? Secondary to COPD exacerbation, community-acquired pneumonia. ? Continue Tamiflu 75 mg twice daily. ? Currently requiring 2 L nasal cannula saturating 93%. #Community-acquired pneumonia ? Presented with worsening shortness of breath, productive cough. ? Initial WBC 14.4, CXR suggesting right perihilar pneumonia. ? WBC improved to 10.3, but patient continues to have increased/pursed lipped work of breathing which patient states is baseline for him ? IV ceftriaxone, doxycycline day 2. ? Follow-up blood, sputum culture. #COPD exacerbation ? Presented with diminished air movement throughout all lung woods. Increased productive cough. ? Has not significantly improved today, likely indicating advanced COPD. ? DuoNeb every 4 hours, Pulmicort twice daily. ? Prednisone 40 mg day 2/5 starting tomorrow. Patient had a dose at home today. ? Pulmonology consulted, ordered CTA to further evaluate advanced COPD and to rule out PE. No pulmonary embolus noted, but did show severe emphysema. #History of rectal carcinoma ? S/p resection at , they are considering starting chemotherapy in August. ? MiraLAX daily. #Hypertension ? Hold home amlodipine as BP stable. #Seizure disorder ? Resume home Keppra 500 mg twice daily. #GERD ? Resume home PPI. #Anxiety/depression ? Resume home buspirone 10 mg 3 times daily. Full code DVT prophylaxis: Lovenox 40 mg
--- NOTE | 2024-07-20 20:23 | EXP.EVENT.NO ---
Problem: H1 N1 flu A. Christofer difficulty with long history of smoking., Recently had been at a basketball game for his niece and mount all of that same ill after that. Question whether this was when he is exposed to flu. Exam: Patient's respiratory rate is closer to 30. He is working very hard sitting up with oxygen on. Durations are adequate but patient is noted working extremely hard., Lungs were clear to auscultation there was no rattle no wheezing, patient is able to talk in short sentences, denied any chest pain. Plan: Noting will have a venous blood gas done in the morning will also add a troponin to his morning labs. Troponins were ordered below and trending down when last done.. Will add EKG also. Would increase this if the patient complained of any chest pain.. Being done as a stat procedure but at this point in time we will continue present treatment and recheck these in the a.m...
--- NOTE | 2024-07-20 20:36 | CA_ITS ---
APPROVED REPORT EXAM: Comprehensive 2D, Doppler, and color-flow Echocardiogram [employer] Agent: Sherry Alexander CRT Ht: 6 ft 3 in Wt: 182lbs BSA: 2.11 BP: 128/75 mmHg Indications: Flu +, COPD, Shortness of Breath, Hypertension/HDD, AAA,CVA, increased trop, HTN, Rectal CA s/p resection @ [facility], Starting chemo possibly in august M-Mode Dimensions RVDd 2.59 cm (0.9-2.6) LA Diam 3.45 cm (1.9-4.0) LVDd 5.30 cm (3.5-5.7) LVDs 3.65 cm (3.5-5.7) IVSd 1.53 cm (0.6-1.1) PWd 1.15 cm (0.6-1.1) EF (Teich) 58.40% FS 31.10% EDV (Teich) 135.30 mL ESV (Teich) 56.30 mL LV Diastology E Decel Time 133 (160-240 msec) E/A Ratio 1.37 Aortic Valve AO Peak GR. 14.50 mmHg Mitral Valve MV E Max Daniel. 47.0 (40-130 cm/s) MV A Velocity 35.0 (40-130 cm/s) E/A Ratio 1.37 MV PHT 39.0 ms Tricuspid Valve TR P. Velocity 172.00 cm/s RAP Estimate 10.00 mmHg RVSP 21.80 mmHg Left Ventricle The left ventricle is normal size. The left ventricular systolic function is hyperdynamic. There is increased LV wall thickness. There is normal LV segmental wall motion. The left ventricular diastolic function is normal. LVEF is 70%. Right Ventricle The right ventricle is not very well-visualized, but grossly appears at least mildly dilated with normal RV function. Atria The left atrium size is normal. The right atrium is not well-visualized. Aortic Valve The aortic valve is mildly thickened. There is no aortic valvular stenosis. No aortic regurgitation is present. Mitral Valve The mitral valve is mildly thickened. No evidence of mitral valve stenosis. Trace mitral regurgitation. Mildly thickened. Tricuspid Valve The tricuspid valve leaflets are thin and pliable. Trace tricuspid regurgitation. There is insufficient TR jet to estimate RVSP. Pulmonic Valve The pulmonary valve is not well-visualized. Great Vessels The aortic root is not well-visualized. IVC is normal in size and collapses >50% with inspiration. Pericardium There is a trivial, anterior pericardial effusion present. No obvious echo indications of tamponade. Other Information Study Quality: Technically Difficult Conclusion Technically difficult study due to poor acoustic windows. Hyperdynamic LV systolic function (LVEF 70%). The RV is not well-visualized, but grossly appears at least mildly dilated with normal RV function. No significant valvular stenosis or regurgitation in the visualized valves. Trivial, anterior pericardial effusion present. No obvious echo indications of tamponade. Electronically signed by : Radha Baeza MD 07/20/2024 14:01:17
[2024-07-20] MEDS: FAMOTIDINE 20MG TABLET 20 MG PO (21:00)
[2024-07-20] MEDS: ATORVASTATIN 40MG TABLET 40 MG PO (21:00)
[2024-07-20] MEDS: PANTOPRAZOLE 40MG TABLET 40 MG PO (21:00)
[2024-07-20] MEDS: TRAZODONE 50MG TABLET 50 MG PO (21:01)
[2024-07-20] MEDS: METHYLPREDNISOLONE SOD SUCC 40MG VIAL 40 MG IV (21:05)
[2024-07-21] VITALS: BP 127/71; PULSE 74; RESP 20; TEMP 36.8; O2SAT 94
[2024-07-21 01:04] VITALS: PULSE 79; PULSE 81
[2024-07-21] MEDS: IPRATROPIUM/ALBUTEROL 3 ML NEB IH ×3 (01:04→09:32)
[2024-07-21 04:00] VITALS: BP 135/84; PULSE 86; RESP 24; TEMP 36.6; O2SAT 91; BMI 22.4
--- NOTE | 2024-07-21 04:23 | PC.NURSE ---
Pt is A/O X 4 however his speech can be difficult to understand. He is able to ambulate to BR with standby assist. He continues to become SOA with any activity including conversation and becomes easily anxious. Pt continues with productive cough. 02 sats above 90 on 2 l/nc. Pt voiding without difficulty LBM on 07/20. VS WNL
[2024-07-21] MEDS: BUDESONIDE 0.5MG/2ML NEB 0.5 MG IH (06:06)
[2024-07-21 06:23] LABS: Hematocrit 36.1 % (42.0-52.0); Hemoglobin 12.2 g/dL (14.1-18.0); Lymphocytes # 0.3 K/mm3 (0.7-4.5); Lymphocytes % 3.8 % (10-50); Mean Corpuscular HGB Conc 33.8 g/dL (31.8-35.4); Mean Corpuscular Hemoglobin 29.6 pg (27.0-31.2); Mean Corpuscular Volume 87.6 fl (80-94); Mean Platelet Volume 9.3 fl (7.4-10.4); Monocytes # 0.3 K/mm3 (0.1-1.0); Monocytes % 3.8 % (1.7-9.3); Neutrophils # 8.1 K/mm3 (1.8-7.8); Neutrophils % 91.6 % (37.0-80.0); Platelet Count 122 K/mm3 (142-424); Red Blood Count 4.12 M/mm3 (4.60-6.20); Red Cell Distribution Width 12.2 % (11.5-17.5); White Blood Count 8.8 K/mm3 (4.8-10.8)
[2024-07-21 06:43] LABS: MANUAL DIFFERENTIAL MANUAL DIFFERENTIAL (MANUAL DIFF)
[2024-07-21 06:48] LABS: Alanine Aminotransferase 59 U/L (12-78); Albumin Level 3.3 g/dl (3.5-5.0); Albumin/Globulin Ratio 1.4 (1.1-1.8); Alkaline Phosphatase 93 U/L (38-126); Anion Gap 8.3 mEq/L (5-15); Aspartate Amino Transferase 93 U/L (17-59); Bilirubin,Total 0.3 mg/dl (0.2-1.3); Blood Urea Nitrogen 20 mg/dl (9-20); Calcium 8.6 mg/dl (8.4-10.2); Carbon Dioxide 29 mmol/L (22.0-30.0); Chloride 98 mmol/L (98-107); Creatinine Clearance Estimated 89 mL/min (50-200); Estimated Glomerular Filt Rate 85 ml/min (>60); GFR (African American) 103 ML/MIN (>60); Globulin 2.4 g/dL (1.3-3.2); Glucose 147 mg/dl (74-100); Magnesium 2.1 mg/dl (1.6-2.3); Potassium 4.3 mmoL/L (3.5-5.1); Sodium 131 mmol/L (136-145); Total Protein,Serum 5.7 g/dl (6.3-8.2)
[2024-07-21 06:55] LABS: Troponin I 0.05 ng/ml (0.00-0.034)
[2024-07-21 08:00] VITALS: BP 122/71; PULSE 110; RESP 18; TEMP 37.4; O2SAT 94
[2024-07-21 08:19] LABS: Lymphocytes % 4 % (10-50); Monocytes % 3 % (2-9); Neutrophils % 93 % (42-76); RBC Morphology Normal; Total Cells Counted 100
[2024-07-21 08:20] LABS: Platelet Estimate Slight Decrease
[2024-07-21 08:25] LABS: Lactate Venous 1.3 mmol/L (0.4-2.0); VBG Base Excess 0.8 mmol/L (-2.4-2.3); VBG HCO3 25.1 mmol/L (23-30); VBG Oxygen Saturation 98.5 % (50-70); VBG PCO2 38.9 mmol/L (35-51); VBG PH 7.43 mmol/L (7.31-7.41); VBG PO2 123.9 mmol/L (28-40); VBG Total CO2 26.3 mmol/L (23-27)
[2024-07-21] MEDS: predniSONE 20MG TAB 40 MG PO (08:28)
[2024-07-21] MEDS: POLYETHYLENE GLYCOL 3350 17 GM PACKET PO (08:28)
[2024-07-21] MEDS: CEFTRIAXONE 1 GM 1 GM in 0.9 % SODIUM CHLORIDE 50 ML IV (08:29)
[2024-07-21] MEDS: levETIRAcetam 500 MG TABLET PO (08:29)
[2024-07-21] MEDS: BUSPIRONE HCL 10 MG TABLET PO (08:29)
[2024-07-21] MEDS: AMLODIPINE 10MG TABLET 10 MG PO (08:29)
[2024-07-21] MEDS: OSELTAMIVIR 75MG CAPSULE 75 MG PO (08:29)
[2024-07-21] MEDS: ASPIRIN EC 81MG TABLET 81 MG PO (08:29)
[2024-07-21] MEDS: ENOXAPARIN 40MG/0.4ML SYRINGE 40 MG SUBCUT (08:29)
[2024-07-21] MEDS: DOXYCYCLINE HYCLATE 100 MG in 0.9 % SODIUM CHLORIDE 250 ML 166.667 MG IV (09:11)
--- NOTE | 2024-07-21 09:23 | P.PN_ITS ---
Subjective *Date: 07/21/24 *Time: 12:43 Interval history: No acute respiratory vents overnight. Patient admits continued improvement in his respiratory symptoms. Pulmonology Exam Inpatient Vital signs and Labs for Last 24 Hours: Temp Pulse Resp BP Pulse Ox O2 Del Method O2 Flow Rate 99.4 F 110 H 18 122/71 94 L Nasal Cannula 2 07/21/24 08:00 07/21/24 08:00 07/21/24 08:00 07/21/24 08:00 07/21/24 08:00 07/21/24 08:50 07/21/24 08:50 Laboratory Results - last 24 hr 07/20/24 09:40: Chlamy pneumoniae PCR Not detected, Adenovirus (PCR) Not detected, B. pertussis DNA (PCR) Not detected, Coronavirus OC43 (PCR) Not detected, Coronavirus HKU1 (PCR) Not detected, Coronavirus 229E (PCR) Not detected, SARS-CoV-2 (PCR) Not detected, Coronavirus NL63 (PCR) Not detected, Human Metapneumovir PCR Not detected, Influenza A (H1) PCR Not detected, Influ A (H1N1/09) PCR Detected A, Influenza A (H3) PCR Not detected, Influenza Type A (PCR) Not detected, Influenza Type B (PCR) Not detected, M. pneumoniae (PCR) Not detected, Parainfluenza 1 (PCR) Not detected, Parainfluenza 2 (PCR) Not detected, Parainfluenza 3 (PCR) Not detected, Parainfluenza 4 (PCR) Not detected, RSV (PCR) Not detected, Entero/Rhino (PCR) Not detected 07/21/24 05:36: WBC 8.8, RBC 4.12 L, Hgb 12.2 L, Hct 36.1 L, MCV 87.6, MCH 29.6, MCHC 33.8, RDW 12.2, Plt Count 122 L, MPV 9.3, Neut % (Auto) 91.6 H, Lymph % (Auto) 3.8 L, [place] % (Auto) 3.8, Eos % (Auto) 0.0 L, Baso % (Auto) 0.0 L, Neut # (Auto) 8.1 H, Lymph # (Auto) 0.3 L, [place] # (Auto) 0.3, Eos # (Auto) 0.0, Baso # (Auto) 0.0, Total Counted 100, Neutrophils % (Manual) 93 H, Lymphocytes % (Manual) 4 L, Monocytes % (Manual) 3, Platelet Estimate Slight decrease, RBC Morphology Normal, Sodium 131 L, Potassium 4.3, Chloride 98, Carbon Dioxide 29, Anion Gap 8.3, BUN 20, Creatinine 0.90, Estimated Creat Clear 89, Estimated GFR 85, Est GFR ( Amer) 103, Glucose 147 H D, Calcium 8.6, Magnesium 2.1 D, Total Bilirubin 0.3, AST 93 H, ALT 59, Alkaline Phosphatase 93, Troponin I 0.05 H, Total Protein 5.7 L, Albumin 3.3 L D, Globulin 2.4, Albumin/Globulin Ratio 1.4 07/21/24 06:00: VBG pH 7.43 H, VBG pCO2 38.9, VBG pO2 123.9 H, VBG HCO3 25.1, VBG Total CO2 26.3, VBG O2 Saturation 98.5 H, VBG Base Excess 0.8, VBG Lactic Acid 1.3 Temp Pulse Resp BP Pulse Ox O2 Del Method O2 Flow Rate 98.9 F 99 H 26 H 164/82 H 96 Nasal Cannula 3 07/20/24 07:45 07/20/24 07:45 07/20/24 07:45 07/20/24 07:45 07/20/24 07:45 07/20/24 09:00 07/20/24 09:00 Laboratory Results - last 24 hr 07/19/24 15:42: WBC 14.4 H, RBC 4.46 L, Hgb 13.6 L, Hct 38.7 L, MCV 86.8, MCH 30.5, MCHC 35.1, RDW 12.4, Plt Count 128 L, MPV 9.2, Neut % (Auto) 92.3 H, Lymph % (Auto) 1.9 L, [place] % (Auto) 5.1, Eos % (Auto) 0.0 L, Baso % (Auto) 0.1, Neut # (Auto) 13.3 H, Lymph # (Auto) 0.3 L, [place] # (Auto) 0.7, Eos # (Auto) 0.0, Baso # (Auto) 0.0, Total Counted 100, Neutrophils % (Manual) 94 H, Band Neutrophils % 3.0, Lymphocytes % (Manual) 2 L, Monocytes % (Manual) 1 L, Platelet Estimate Sli ght decrease, RBC Morphology Normal, Sodium 129 L, Potassium 4.3, Chloride 95 L, Carbon Dioxide 25, Anion Gap 13.3, BUN 25 H, Creatinine 0.80, Estimated Creat Clear 89, Estimated GFR 98, Est GFR ( Amer) 118, Glucose 112 H, Calcium 8.9, Total Bilirubin 0.7, AST 123 H, ALT 60, Alkaline Phosphatase 107, Troponin I 0.09 H, NT-Pro-B Natriuret Pep 872 H, Total Protein 6.8, Albumin 3.9, Globulin 2.9, Albumin/Globulin Ratio 1.3 07/19/24 15:53: VBG pH 7.37, VBG pCO2 43.8, VBG pO2 53.9 H, VBG HCO3 24.5, VBG Total CO2 25.9, VBG O2 Saturation 87.4 H, VBG Base Excess -0.8, VBG Lactic Acid 1.4 07/19/24 19:07: Troponin I 0.09 H 07/19/24 22:03: Troponin I 0.08 H 07/20/24 05:43: WBC 10.3 D, RBC 4.36 L, Hgb 12.9 L, Hct 38.1 L, MCV 87.4, MCH 29.6, MCHC 33.9, RDW 12.3, Plt Count 126 L, MPV 9.5, Neut % (Auto) 88.5 H, Lymph % (Auto) 4.6 L, [place] % (Auto) 6.3, Eos % (Auto) 0.0 L, Baso % (Auto) 0.1, Neut # (Auto) 9.1 H, Lymph # (Auto) 0.5 L, [place] # (Auto) 0.7, Eos # (Auto) 0.0, Baso # (Auto) 0.0, Sodium 132 L, Potassium 4.2, Chloride 98, Carbon Dioxide 26, Anion Gap 12.2, BUN 23 H, Creatinine 0.90, Estimated Creat Clear 89, Estimated GFR 85, Est GFR ( Amer) 103, Glucose 93, Calcium 8.7, Magnesium 1.5 L, Total Bilirubin 0.5, AST 121 H, ALT 62, Alkaline Phosphatase 100, Total Protein 6.3, Albumin 3.7, Globulin 2.6, Albumin/Globulin Ratio 1.4, Triglycerides 50, Cholesterol 85 L, LDL Cholesterol Direct < 30.00 L, VLDL Cholesterol 10, HDL Cholesterol 44, Cholesterol/HDL Ratio 1.9 I & O for Labs for Last 24 Hours: Intake & Output 07/18/24 07/19/24 07/20/24 07/21/24 23:59 23:59 23:59 23:59 Intake Total 1270 / 1520 250 / 250 Output Total 150 / 150 0 / 0 0 / 0 Balance -150 / 100 1270 / 1520 250 / 250 Weight 175 lb 4 oz 182 lb 8 oz 184 lb 10.759 oz Intake & Output 07/17/24 07/18/24 07/19/24 07/20/24 23:59 23:59 23:59 23:59 Intake Total 520 / 520 Output Total 150 / 150 0 / 0 Balance -150 / 100 520 / 520 Weight 175 lb 4 oz 182 lb 8 oz Microbiology Reports for the Last 24 Hours: Microbiology 07/19/24 15:42 Blood Blood Culture - Preliminary NO GROWTH AFTER 24 HOURS 07/19/24 15:42 Blood Blood Culture - Preliminary NO GROWTH AFTER 24 HOURS 07/19/24 19:10 Sputum - Expectorated Sputum Gram Stain - Final 07/19/24 19:10 Sputum - Expectorated Sputum Sputum Culture - Preliminary Microbiology 07/19/24 19:10 Sputum - Expectorated Sputum Gram Stain - Final Constitutional: Present moderate distress Head: Present normocephalic and atraumatic ENT: Present normal exam, normal oropharynx and mucous membranes moist Neck: Present normal inspection and full ROM Respiratory: Present prolonged expiratory phase, respiratory distress, rhonchi, wheezes, distant breath sounds and able to speak in complete sentences Cardiac: Present S1/S2, Tachycardia and radial pulses present GI: Present soft and distention; Absent tenderness or guarding Skin: Present intact; Absent cyanosis or jaundice Neuro: Present alert, awake and oriented x 3 Extremities: Present normal inspection; Absent clubbing or cyanosis Psychiatric: Present normal affect and cooperative Assessment and Plan *Assessment and plan (1) Pneumonia: Status: Acute Category: Medical Code(s): J18.9 - Pneumonia, unspecified organism (2) Acute exacerbation of chronic obstructive pulmonary disease: Status: Acute Category: Medical Code(s): J44.1 - Chronic obstructive pulmonary disease with (acute) exacerbation (3) Acute respiratory failure with hypoxemia: Status: Acute Category: Medical Code(s): J96.01 - Acute respiratory failure with hypoxia (4) Influenza A: Status: Acute Category: Medical Code(s): J10.1 - Influenza due to other identified influenza virus with other respiratory manifestations Plan Mr. Beasley is a 63-year-old male current smoker greater than [id number] smoking psychiatry diagnosis of COPD using Symbicort and Spiriva inhalers at baseline, not using any oxygen supplementation, history of rectal cancer status post resection around 2022 have not received any chemotherapy secondary to poor functional status admits surveillance with no evidence of recurrence last seen oncology at [facility] around AugustSeptember 2023 as per the patient, presented to the ER with worsening respiratory distress cough and pulmonary was called for further evaluation and management. Admits worsening respiratory status for the last 5 to 7 days. Denies any known sick contacts. Admits worsening cough and increasing productive phlegm. Patient recently started on Z-Antonio and steroids as an outpatient basis by primary care physician. Chest x-ray concerning for bilateral consolidative changes right greater than left extensive. Hyperinflated lungs. Neutrophilic predominant leukocytosis upon admission improving. On initial examination severe respiratory distress. Bilateral decreased breath sounds. interval Updaate: CTPE no evidence on embolism. Extensive emohysematous changes and right lower libe pmeural small consolidation. PCR positive infkuenza A. Receiving Tamiflu Improvement in respiratory distress Plan: Continue oxygen supplementation as needed to maintain O2 saturation goal of 90% and above, currently on 2 L Continue Tamiflu for a total of 5 days DuoNebs every 4 hours along with Pulmicort every 12 scheduled. Can be discharged home on Trelegy 100 inhaler Antibiotics can be weaned to cefdinir to complete a total of 5-day course Continue prednisone 40 mg daily x 5 days
[2024-07-21 09:32] VITALS: PULSE 78; PULSE 80; O2SAT 89
--- NOTE | 2024-07-21 10:38 | EXP.CARD.PN ---
Subjective Subjective Date: 07/21/24 Time: 10:39 Principal diagnosis: Respiratory illness Interval history: 63 yo WM in bed in NAD. States his breathing is better than when he was admitted but not back to normal. No chest pain this AM. Event of last night noted with improving troponin and no acute EKG changes. Exam Data for Last 24 hours Vital signs and Labs for Last 24 Hours: Temp Pulse Resp BP Pulse Ox O2 Del Method O2 Flow Rate 99.4 F 80 18 122/71 89 L Room Air 2 07/21/24 08:00 07/21/24 09:32 07/21/24 08:00 07/21/24 08:00 07/21/24 09:32 07/21/24 09:32 07/21/24 08:50 Laboratory Results - last 24 hr 07/20/24 09:40: Chlamy pneumoniae PCR Not detected, Adenovirus (PCR) Not detected, B. pertussis DNA (PCR) Not detected, Coronavirus OC43 (PCR) Not detected, Coronavirus HKU1 (PCR) Not detected, Coronavirus 229E (PCR) Not detected, SARS-CoV-2 (PCR) Not detected, Coronavirus NL63 (PCR) Not detected, Human Metapneumovir PCR Not detected, Influenza A (H1) PCR Not detected, Influ A (H1N1/09) PCR Detected A, Influenza A (H3) PCR Not detected, Influenza Type A (PCR) Not detected, Influenza Type B (PCR) Not detected, M. pneumoniae (PCR) Not detected, Parainfluenza 1 (PCR) Not detected, Parainfluenza 2 (PCR) Not detected, Parainfluenza 3 (PCR) Not detected, Parainfluenza 4 (PCR) Not detected, RSV (PCR) Not detected, Entero/Rhino (PCR) Not detected 07/21/24 05:36: WBC 8.8, RBC 4.12 L, Hgb 12.2 L, Hct 36.1 L, MCV 87.6, MCH 29.6, MCHC 33.8, RDW 12.2, Plt Count 122 L, MPV 9.3, Neut % (Auto) 91.6 H, Lymph % (Auto) 3.8 L, [place] % (Auto) 3.8, Eos % (Auto) 0.0 L, Baso % (Auto) 0.0 L, Neut # (Auto) 8.1 H, Lymph # (Auto) 0.3 L, [place] # (Auto) 0.3, Eos # (Auto) 0.0, Baso # (Auto) 0.0, Total Counted 100, Neutrophils % (Manual) 93 H, Lymphocytes % (Manual) 4 L, Monocytes % (Manual) 3, Platelet Estimate Slight decrease, RBC Morphology Normal, Sodium 131 L, Potassium 4.3, Chloride 98, Carbon Dioxide 29, Anion Gap 8.3, BUN 20, Creatinine 0.90, Estimated Creat Clear 89, Estimated GFR 85, Est GFR ( Amer) 103, Glucose 147 H D, Calcium 8.6, Magnesium 2.1 D, Total Bilirubin 0.3, AST 93 H, ALT 59, Alkaline Phosphatase 93, Troponin I 0.05 H, Total Protein 5.7 L, Albumin 3.3 L D, Globulin 2.4, Albumin/Globulin Ratio 1.4 07/21/24 06:00: VBG pH 7.43 H, VBG pCO2 38.9, VBG pO2 123.9 H, VBG HCO3 25.1, VBG Total CO2 26.3, VBG O2 Saturation 98.5 H, VBG Base Excess 0.8, VBG Lactic Acid 1.3 I & O for Last 24 hours: Intake & Output 07/18/24 07/19/24 07/20/24 07/21/24 11:59 11:59 11:59 11:59 Intake Total 520 / 520 1200 / 1200 Output Total 150 / 150 0 / 0 Balance 370 / 370 1200 / 1200 Weight 182 lb 8 oz 184 lb 10.759 oz Microbiology Reports for the Last 24 Hours: Microbiology 07/19/24 19:10 Sputum - Expectorated Sputum Gram Stain - Final 07/19/24 19:10 Sputum - Expectorated Sputum Sputum Culture - Preliminary 07/19/24 15:42 Blood Blood Culture - Preliminary NO GROWTH AFTER 24 HOURS 07/19/24 15:42 Blood Blood Culture - Preliminary NO GROWTH AFTER 24 HOURS Constitutional Constitutional: mild distress *Routine Respiratory Exam Respiratory: Present diminished air movement; Absent rhonchi or wheezes *Routine Cardiovascular Exam Cardiovascular: Present RRR; Absent murmur, gallop or rubs Progress Note: A&P Assessment and plan (1) Pneumonia: Status: Acute (2) Acute exacerbation of chronic obstructive pulmonary disease: Status: Acute (3) Acute respiratory failure with hypoxemia: Status: Acute (4) Influenza A: Status: Acute Assessment and Plan Assessment and Plan for All Diagnoses:: 1. Resp Failure with hypoxia related to pneumonia/influenza on top of COPD -on Ceftriaxone, doxycycline, Tamiflu, prednisone and DuoNeb treatment -Pulmonary following 2. Elevated troponins/BNP consistent with type II non-STEMI -Echo EF 70%, mild RV dilation with normal function, no significant valve disease. -Continue aspirin, statin and amlodipine 3. Tobacco use with COPD -Cessation recommended 4. History of hypertension -amlodipine 10 mg 5. History of CVA with neuro stenting, 2016 -on ASA 6. Hyperlipidemia -On statin therapy -LDL less than 30 7. Chronic anemia -stable between 12 and 13 8. Thrombocytopenia -stable around 126K 9. Hyponatremia, improving -131 today 10. Hypomagnesemia -resolved 11. History of rectal cancer status post surgery, 12/2022 -Considering chemotherapy to start in August of this year 12. Epilepsy -on Keppra and Vimpat 13. History of infrarenal AAA, borderline -3 cm in 2022 Nothing further to add. Follow up in our office in 1-2 wks to discuss outpatient cardiac testing.
--- NOTE | 2024-07-21 11:17 | EXP.DC.SUM ---
General Admission date:: 07/19/24 HPI HPI HPI: Irvin Beasley is a 63-year-old male with a medical history significant for rectal carcinoma s/p resection (follows [facility], considering starting chemotherapy in August), COPD on room air, hypertension who presents with progressive shortness of breath, productive cough over the past few days. He states his PCP gave him azithromycin, steroids 2 days ago which she picked up yesterday. However, he states he continued to feel worse today prompting him to come to the ED. On arrival, patient was hypoxic to 85% on room air, improved with 2 L nasal cannula. Tachypneic up to 26 which improved with DuoNeb. WBC 14.4, sodium 129, troponin 0.09, BNP 872. CXR suggestive of right perihilar pneumonia. Given ceftriaxone, azithromycin in the ED. Case discussed with ED provider and decision was made to admit patient for acute hypoxic respiratory failure secondary to community-acquired pneumonia and COPD exacerbation. Hospital Course Hospital Course Hospital Course: Irvin Beasley is a 63-year-old male with a medical history significant for rectal carcinoma s/p resection (follows [facility], considering starting chemotherapy in August), COPD on room air, hypertension who presents with progressive shortness of breath, productive cough over the past few days. He states his PCP gave him azithromycin, steroids 2 days ago which she picked up yesterday. However, he states he continued to feel worse today prompting him to come to the ED. On arrival, patient was hypoxic to 85% on room air, improved with 2 L nasal cannula. Tachypneic up to 26 which improved with DuoNeb. WBC 14.4, sodium 129, troponin 0.09, BNP 872. CXR suggestive of right perihilar pneumonia. Given ceftriaxone, azithromycin in the ED. Case discussed with ED provider and decision was made to admit patient for acute hypoxic respiratory failure secondary to community-acquired pneumonia and COPD exacerbation. #Acute hypoxic respiratory failure #Influenza A ? Secondary to COPD exacerbation, community-acquired pneumonia influenza A. ? Continue Tamiflu 75 mg twice daily for 4 more days. ? Saturating 83% on room air at rest, with appropriate saturations with 2 L. #Community-acquired pneumonia ? Presented with worsening shortness of breath, productive cough. ? Initial WBC 14.4, CXR suggesting right perihilar pneumonia. ? Clinically improved with ceftriaxone, doxycycline day. ? Discharged with levofloxacin for 2 more days. Will follow-up sputum culture once it results. #COPD exacerbation ? Presented with diminished air movement throughout all lung woods. Increased productive cough. Exacerbated by influenza A, pneumonia. ? Pulmonology consulted, ordered CTA to further evaluate advanced COPD and to rule out PE. No pulmonary embolus noted, but did show severe emphysema. ? Has not significantly improved today, likely indicating advanced COPD. ? Clinically improved with DuoNebs and Pulmicort, antibiotics, steroids. ? Discharged with levofloxacin, prednisone for 2 more days. #NSTEMI type II #Elevated tropnins, BNP #H/o of CVA - Troponins plateaued at 0.09, BNP in 800s. - Likely demand from respiratory illness. - Echo showed normal biventricular function, without wall motion abnormalities. - Cardiology consulted, will plan for outpatient workup. Will follow-up with cardiology within 2 weeks. ? Continue aspirin, statin. #History of rectal carcinoma ? S/p resection at , they are considering starting chemotherapy in August. ? MiraLAX daily. #Hypertension ? Continue home amlodipine. #Seizure disorder ?Continue home Keppra, Vimpat. #GERD ?Continue home PPI. #Anxiety/depression ?Continue home buspirone 10 mg 3 times daily. Exam Data for Last 24 hours Vital signs and Labs for Last 24 Hours: Temp Pulse Resp BP Pulse Ox O2 Del Method O2 Flow Rate 99.4 F 80 18 122/71 89 L Room Air 2 07/21/24 08:00 07/21/24 09:32 07/21/24 08:00 07/21/24 08:00 07/21/24 09:32 07/21/24 09:32 07/21/24 08:50 Laboratory Results - last 24 hr 07/20/24 09:40: Chlamy pneumoniae PCR Not detected, Adenovirus (PCR) Not detected, B. pertussis DNA (PCR) Not detected, Coronavirus OC43 (PCR) Not detected, Coronavirus HKU1 (PCR) Not detected, Coronavirus 229E (PCR) Not detected, SARS-CoV-2 (PCR) Not detected, Coronavirus NL63 (PCR) Not detected, Human Metapneumovir PCR Not detected, Influenza A (H1) PCR Not detected, Influ A (H1N1/09) PCR Detected A, Influenza A (H3) PCR Not detected, Influenza Type A (PCR) Not detected, Influenza Type B (PCR) Not detected, M. pneumoniae (PCR) Not detected, Parainfluenza 1 (PCR) Not detected, Parainfluenza 2 (PCR) Not detected, Parainfluenza 3 (PCR) Not detected, Parainfluenza 4 (PCR) Not detected, RSV (PCR) Not detected, Entero/Rhino (PCR) Not detected 07/21/24 05:36: WBC 8.8, RBC 4.12 L, Hgb 12.2 L, Hct 36.1 L, MCV 87.6, MCH 29.6, MCHC 33.8, RDW 12.2, Plt Count 122 L, MPV 9.3, Neut % (Auto) 91.6 H, Lymph % (Auto) 3.8 L, [place] % (Auto) 3.8, Eos % (Auto) 0.0 L, Baso % (Auto) 0.0 L, Neut # (Auto) 8.1 H, Lymph # (Auto) 0.3 L, [place] # (Auto) 0.3, Eos # (Auto) 0.0, Baso # (Auto) 0.0, Total Counted 100, Neutrophils % (Manual) 93 H, Lymphocytes % (Manual) 4 L, Monocytes % (Manual) 3, Platelet Estimate Slight decrease, RBC Morphology Normal, Sodium 131 L, Potassium 4.3, Chloride 98, Carbon Dioxide 29, Anion Gap 8.3, BUN 20, Creatinine 0.90, Estimated Creat Clear 89, Estimated GFR 85, Est GFR ( Amer) 103, Glucose 147 H D, Calcium 8.6, Magnesium 2.1 D, Total Bilirubin 0.3, AST 93 H, ALT 59, Alkaline Phosphatase 93, Troponin I 0.05 H, Total Protein 5.7 L, Albumin 3.3 L D, Globulin 2.4, Albumin/Globulin Ratio 1.4 07/21/24 06:00: VBG pH 7.43 H, VBG pCO2 38.9, VBG pO2 123.9 H, VBG HCO3 25.1, VBG Total CO2 26.3, VBG O2 Saturation 98.5 H, VBG Base Excess 0.8, VBG Lactic Acid 1.3 I & O for Last 24 hours: Intake & Output 07/18/24 07/19/24 07/20/2407/21/25 23:59 23:59 23:59 23:59 Intake Total 1270 / 1520 450 / 450 Output Total 150 / 150 0 / 0 0 / 0 Balance -150 / 100 1270 / 1520 450 / 450 Weight 79.492 kg 82.781 kg 83.766 kg Microbiology Reports for the Last 24 Hours: Microbiology 07/19/24 19:10 Sputum - Expectorated Sputum Gram Stain - Final 07/19/24 19:10 Sputum - Expectorated Sputum Sputum Culture - Preliminary 07/19/24 15:42 Blood Blood Culture - Preliminary NO GROWTH AFTER 24 HOURS 07/19/24 15:42 Blood Blood Culture - Preliminary NO GROWTH AFTER 24 HOURS Constitutional Constitutional: no acute distress *Routine HEENT Exam Head: Present normocephalic Eye: Present EOMI and PERRL ENT: Present mucous membranes moist *Routine Neck Exam Neck: Present supple; Absent lymphadenopathy *Routine Respiratory Exam Respiratory: Present prolonged expiratory phase; Absent CTA bilaterally *Routine Cardiovascular Exam Cardiovascular: Present RRR *Routine Abdominal Exam Abdominal: Present soft and normoactive bowel sounds; Absent tenderness *Routine Extremities Exam Extremities: Absent cyanosis, clubbing or edema *Routine Skin Exam Skin: Present warm; Absent rash *Routine Neurological Exam Neurological: Present alert and oriented X3 Results Data Completed and Pending Labs on day of discharge: Labs from last 24 hours 07/21/24 07/21/24 07/20/24 06:00 05:36 09:40 WBC 8.8 RBC 4.12 L Hgb 12.2 L Hct 36.1 L MCV 87.6 MCH 29.6 MCHC 33.8 RDW 12.2 Plt Count 122 L MPV 9.3 Neut % (Auto) 91.6 H Lymph % (Auto) 3.8 L [place] % (Auto) 3.8 Eos % (Auto) 0.0 L Baso % (Auto) 0.0 L Neut # (Auto) 8.1 H Lymph # (Auto) 0.3 L [place] # (Auto) 0.3 Eos # (Auto) 0.0 Baso # (Auto) 0.0 Total Counted 100 Neutrophils % (Manual) 93 H Lymphocytes % (Manual) 4 L Monocytes % (Manual) 3 Platelet Estimate Slight decrease RBC Morphology Normal VBG pH 7.43 H VBG pCO2 38.9 VBG pO2 123.9 H VBG HCO3 25.1 VBG Total CO2 26.3 VBG O2 Saturation 98.5 H VBG Base Excess 0.8 VBG Lactic Acid 1.3 Sodium 131 L Potassium 4.3 Chloride 98 Carbon Dioxide 29 Anion Gap 8.3 BUN 20 Creatinine 0.90 Estimated Creat Clear 89 Estimated GFR 85 Est GFR ( Amer) 103 Glucose 147 H D Calcium 8.6 Magnesium 2.1 D Total Bilirubin 0.3 AST 93 H ALT 59 Alkaline Phosphatase 93 Troponin I 0.05 H Total Protein 5.7 L Albumin 3.3 L D Globulin 2.4 Albumin/Globulin Ratio 1.4 Chlamy pneumoniae PCR Not detected Adenovirus (PCR) Not detected B. pertussis DNA (PCR) Not detected Coronavirus OC43 (PCR) Not detected Coronavirus HKU1 (PCR) Not detected Coronavirus 229E (PCR) Not detected SARS-CoV-2 (PCR) Not detected Coronavirus NL63 (PCR) Not detected Human Metapneumovir PCR Not detected Influenza A (H1) PCR Not detected Influ A (H1N1/09) PCR Detected A Influenza A (H3) PCR Not detected Influenza Type A (PCR) Not detected Influenza Type B (PCR) Not detected M. pneumoniae (PCR) Not detected Parainfluenza 1 (PCR) Not detected Parainfluenza 2 (PCR) Not detected Parainfluenza 3 (PCR) Not detected Parainfluenza 4 (PCR) Not detected RSV (PCR) Not detected Entero/Rhino (PCR) Not detected Preliminary micro results at discharge 07/19/24 19:10 Sputum Culture - Preliminary Sputum - Expectorated Sputum 07/19/24 15:42 Blood Culture - Preliminary Blood NO GROWTH AFTER 24 HOURS 07/19/24 15:42 Blood Culture - Preliminary Blood NO GROWTH AFTER 24 HOURS DS: Diagnosis Discharge Diagnosis (1) Pneumonia: Status: Acute Code(s): J18.9 - Pneumonia, unspecified organism (2) Acute exacerbation of chronic obstructive pulmonary disease: Status: Acute Code(s): J44.1 - Chronic obstructive pulmonary disease with (acute) exacerbation (3) Acute respiratory failure with hypoxemia: Status: Acute Code(s): J96.01 - Acute respiratory failure with hypoxia (4) Influenza A: Status: Acute Code(s): J10.1 - Influenza due to other identified influenza virus with other respiratory manifestations Meds Home Medications and Allergies Home Medications ?Medication ?Instructions ?Recorded ?Confirmed ?Type atorvastatin 40 mg tablet 40 mg PO HS Cholesterol #90 tabs 05/29/21 07/19/24 Rx lacosamide 200 mg tablet 200 mg PO BID SEIZURES #60 tabs 07/18/21 07/19/24 Rx amlodipine 10 mg tablet 10 mg PO DAILY 10/08/22 07/19/24 History aspirin 81 mg tablet,delayed 81 mg PO DAILY thinner 10/08/22 07/19/24 History release buspirone 10 mg tablet 10 mg PO TID 10/08/22 07/19/24 History levetiracetam 500 mg tablet 500 mg PO BID 10/08/22 07/20/24 History (Keppra) pantoprazole 20 mg tablet,delayed 20 mg PO DAILY 10/08/22 07/19/24 History release trazodone 50 mg tablet 50 mg PO HS 03/23/23 07/19/24 History famotidine 20 mg tablet 20 mg PO HS 07/20/24 07/20/24 History fluticasone fur. 100 mcg-umeclid 1 ea inhalation DAILY 07/20/24 07/20/24 History 62.5 mcg-vilant 25 mcg inhalat.powder (Trelegy Ellipta) lacosamide 50 mg tablet 50 mg PO BID 07/20/24 07/20/24 History levofloxacin 750 mg tablet 750 mg PO DAILY 2 days #2 tabs 07/21/24 Rx oseltamivir 75 mg capsule (Tamiflu) 75 mg PO BID 4 days #7 caps 07/21/24 Rx prednisone 20 mg tablet 40 mg (2 x 20 mg) PO DAILY 2 days 07/21/24 Rx #4 tabs New Prescriptions to Start Prescriptions: levofloxacin Santosh Leon oseltamivir [Tamiflu] Santosh Leon prednisone Santosh Leon Allergies Allergy/AdvReac Type Severity Reaction Status Date / Time No Known Allergies Allergy Verified 03/23/23 11:03 Discharge Plan Disposition Patient Disposition: Home, Self-Care Condition: Fair Discharge Order Discharge Orders: Discharge Order (Routine); Ordered 07/21/24 Ordered By: Santosh Leon Follow up Plan Follow up with: Bhavana Zuñiga APRN [Primary Care Provider] - Enter time for follow up Vadim Abreu PA [Physician [employer]illing [employer]] - Enter time for follow up Radha Lafleur MD [Physician] - Enter time for follow up Prescriptions/Medication Reconciliation: New prednisone 20 mg Tablet 40 mg PO DAILY 2 Days Qty: 4 0RF oseltamivir [Tamiflu] 75 mg Capsule 75 mg PO BID 4 Days Qty: 7 0RF levofloxacin 750 mg tablet 750 mg PO DAILY 2 Days Qty: 2 0RF Continued atorvastatin 40 mg tablet 40 mg PO HS Qty: 90 1RF trazodone 50 mg tablet 50 mg PO HS Patient Comments: TAKE ONE TABLET BY MOUTH EVERY DAY AT BEDTIME FOR DEPRESSION lacosamide 200 mg tablet 200 mg PO BID Qty: 60 2RF Rx Instructions: take with 50 mg to equal 250 mg levetiracetam [Keppra] 500 mg tablet 500 mg PO BID Patient Comments: TAKE ONE TABLET BY MOUTH TWICE DAILY aspirin 81 mg tablet,delayed release (DR/EC) 81 mg PO DAILY pantoprazole 20 mg tablet,delayed release (DR/EC) 20 mg PO DAILY Rx Instructions: TAKE ONE TABLET BY MOUTH EVERY DAY amlodipine 10 mg tablet 10 mg PO DAILY Rx Instructions: TAKE 1 TABLET BY MOUTH DAILY buspirone 10 mg tablet 10 mg PO TID Rx Instructions: TAKE ONE TABLET BY MOUTH THREE TIMES DAILY FOR ANXIETY famotidine 20 mg tablet 20 mg PO HS Patient Comments: TAKE ONE TABLET BY MOUTH EVERY DAY AT BEDTIME lacosamide 50 mg tablet 50 mg PO BID Patient Comments: TAKE ONE TABLET BY MOUTH TWICE DAILY Trelegy Ellipta 100-62.5-25 mcg blister with device 1 ea INHALATION DAILY Patient Comments: INHALE 1 PUFF BY MOUTH EVERY DAY --RINSE MOUTH AFTER USE-- Problem Reconciliation Problems Reviewed?: Yes Patient Discharge Instructions Patient Instructions: Pneumonia--Adult, DI for Pneumonia -- Adult, DI for Respiratory Failure, Respiratory Failure Print Language: [place] Providers Primary Care Provider: Bhavana Zuñiga Admit Provider: Santosh Leon Attending Provider: Santosh Leon
--- NOTE | 2024-07-21 11:54 | PC.NURSE ---
83% on RA at rest.
[2024-07-21 12:00] VITALS: BP 155/60; PULSE 74; RESP 18; TEMP 36.6; O2SAT 85
--- NOTE | 2024-07-21 12:10 | PC.NURSE ---
Clinic pharmacy called.
--- NOTE | 2024-07-21 13:22 | PC.NURSE ---
Iv removed and sister called for his ride.
--- NOTE | 2024-07-24 10:13 | SW/DCPLANNER ---
Spoke with patient on the phone. Patient stated that he is aware of his upcoming appointments and that his sister has his dates written down. Patient stated that he was able to get his new medicine from clinic pharmacy. Patient stated that he has no concerns or questions at this time. Thierno Soriano
== END 2024-07-21 14:12 | disposition home or self-care (01) | DRG 177 ==
LOC: ER 15:51 → 2ND 18:01
PROVIDERS: Internal Medicine Pulmonary Disease; Nurse Practitioner Family; Admitting Provider Student in an Organized Health Care Education/Training Program; Emergency Provider Student in an Organized Health Care Education/Training Program; PCP Nurse Practitioner Family; Visit Provider Student in an Organized Health Care Education/Training Program
DX: J15.8 Pneumonia due to other specified bacteria (principal); I21.A1 Myocardial infarction type 2; J96.01 Acute respiratory failure with hypoxia; J44.1 Chronic obstructive pulmonary disease with (acute) exacerbation; C20 Malignant neoplasm of rectum; K21.9 Gastro-esophageal reflux disease without esophagitis; F32.A Depression, unspecified; F41.9 Anxiety disorder, unspecified; G40.909 Epilepsy, unspecified, not intractable, without status epilepticus; J10.08 Influenza due to other identified influenza virus with other specified pneumonia; I10 Essential (primary) hypertension; J43.9 Emphysema, unspecified; F17.210 Nicotine dependence, cigarettes, uncomplicated; Z86.73 Personal history of transient ischemic attack (TIA), and cerebral infarction without residual deficits; Z79.899 Other long term (current) drug therapy; Z79.02 Long term (current) use of antithrombotics/antiplatelets; Z79.82 Long term (current) use of aspirin
CPT/HCPCS: 36415; 71046; 71275; 80053; 80061; 82803; 83735; 83880; 84484; 85007; 85025; 87040; 87070; 87077; 87186; 87205; 87633; 93005; 93306; 94640; 94761; 97162; 97165; 99291; J0456; J0696; J1650; J2919; J3475; J7050; J7620; Q9967

== ENCOUNTER 2024-08-29 12:20 | Outpatient (CLI) | payer MEDICARE, MEDICAID, SELFPAY ==
--- NOTE | 2024-08-29 | CA_ITS ---
APPROVED REPORT Exam: Pharmacologic Technologist: Leeann Kidd Ht: 6 ft 3 in Wt: 174 lbs BSA: 2.07 m2 HR: 63 bpm BP: 134/69 mmHg Stress Test Details Test: Lexiscan HR Resting HR: 63 bpm Max Heart Rate (APMHR): 157.388878 bpm Max HR Achieved: 82 bpm Target HR (85% APMHR): 133.365275 bpm % of APMHR: 52.23 Recovery HR: 67 bpm BP Resting BP: 134.0/69.0 mmHg Max BP: 139.0/69.0 mmHg Recovery BP: 139.0/69.0 mmHg ECG Stress ECG Conclusion Symptoms: Dyspnea Arrhythmias/Ectopy: - ST-T Changes: Less than [address] depression. Conclusion: EKG poriton unremarkable due to Lexiscan infusion. Electronically signed by : Radha Baeza MD 08/31/2024 09:18:41
--- NOTE | 2024-08-29 12:23 | NM_ITS ---
APPROVED REPORT Exam: Nuclear Stress Test Indication: soa Patient Location: Outpatient Stress Tech: Leeann Kidd NM Tech:Kaleigh MillerMIRIANT, RT (R)(N) Ht: 6 ft 3 in Wt: 175 lbs HR: 59 bpm BP: 134/69 mmHg BSA: 2.07 m2 TID: 1.17 BMI: 21.8 History: soa Procedure: Patient received 0.4 mg of intravenous Lexiscan, resting heart rate 59 bpm, resting blood pressure 134/69 mmHg, with Lexiscan maximum heart rate achieved was 84 bpm which is 85 % of the maximum predicted heart rate and blood pressure was 154/112 mmHg. With Lexiscan, patient denied any complaint of chest pain. Cardiac Stress and Resting SPECT Images: Cardiac Stress and Resting SPECT images were obtained using technetium 99m Myoview 31.6 mCi stress and 10.26 mCi at rest. Resting and stress imaging in supine and prone positions demonstrate a large sized, moderate, predominantly fixed perfusion defect in the inferior LV wall. There is a small region of reversibility towards the inferior apical wall. Gated imaging demonstrates normal global and regional LV systolic function. There is mild hypokinesis of the basal inferior LV wall. LVEF is calculated 55%. Conclusion: Large sized, moderate, predominantly fixed perfusion defect in the inferior LV wall. There is a small region of reversibility towards the inferior apical wall. Findings are suggestive of partial reversible ischemia. Gated imaging demonstrates normal global and regional LV systolic function. There is mild hypokinesis of the basal inferior LV wall. LVEF is calculated 55%. Electronically signed by : Radha Baeza MD 08/30/2024 12:53:46
[2024-08-29] MEDS: SODIUM CHLORIDE 0.9% 10ML SYR (RAD ONLY) 10 ML IV ×2 (14:16)
[2024-08-29] MEDS: REGADENOSON 0.4MG/5ML SYRINGE 0.4 MG IV (14:16)
[2024-08-29] MEDS: ISOTOPE MYOVIEW (PER STUDY) 1 DOSE IV (14:16)
== END 2024-08-29 23:59 | disposition home or self-care (01) ==
LOC: RAD 12:21
PROVIDERS: PCP Nurse Practitioner Family; Visit Provider Physician Assistant
DX: R94.31 Abnormal electrocardiogram [ECG] [EKG] (principal); I10 Essential (primary) hypertension; R79.89 Other specified abnormal findings of blood chemistry; I71.43 Infrarenal abdominal aortic aneurysm, without rupture; C20 Malignant neoplasm of rectum; J44.9 Chronic obstructive pulmonary disease, unspecified; G40.909 Epilepsy, unspecified, not intractable, without status epilepticus; F41.9 Anxiety disorder, unspecified; Z86.73 Personal history of transient ischemic attack (TIA), and cerebral infarction without residual deficits; E78.5 Hyperlipidemia, unspecified; F17.200 Nicotine dependence, unspecified, uncomplicated
CPT/HCPCS: 78452; 93017; 93018; A9502; J2785

== ENCOUNTER 2024-09-05 14:36 | Outpatient (CLI) | payer MEDICARE, MEDICAID, SELFPAY ==
[2024-09-05 18:27] LABS: Albumin Level 4.3 g/dl (3.5-5.0); Chloride 100 mmol/L (98-107); Potassium 4.6 mmoL/L (3.5-5.1); Sodium 136 mmol/L (136-145)
[2024-09-05 18:30] LABS: Alanine Aminotransferase 25 U/L (12-78); Albumin/Globulin Ratio 1.7 (1.1-1.8); Alkaline Phosphatase 88 U/L (38-126); Anion Gap 9.6 mEq/L (5-15); Aspartate Amino Transferase 27 U/L (17-59); Bilirubin,Total 0.2 mg/dl (0.2-1.3); Blood Urea Nitrogen 18 mg/dl (9-20); Calcium 9.1 mg/dl (8.4-10.2); Carbon Dioxide 31 mmol/L (22.0-30.0); Estimated Glomerular Filt Rate 85 ml/min (>60); GFR (African American) 103 ML/MIN (>60); Globulin 2.5 g/dL (1.3-3.2); Glucose 81 mg/dl (74-100); Total Protein,Serum 6.8 g/dl (6.3-8.2)
== END 2024-09-05 23:59 | disposition home or self-care (01) ==
LOC: LAB 14:38
PROVIDERS: PCP Nurse Practitioner Family; Visit Provider Internal Medicine Medical Oncology
DX: C21.0 Malignant neoplasm of anus, unspecified (principal); K62.89 Other specified diseases of anus and rectum
CPT/HCPCS: 36415; 80053

== ENCOUNTER 2024-09-13 11:59 | Outpatient (CLI) | payer MEDICARE, MEDICAID, SELFPAY ==
[2024-09-13 12:13] VITALS: BMI 21.5
[2024-09-13 12:18] VITALS: BP 122/67; PULSE 60; RESP 16; TEMP 36.1; O2SAT 95
[2024-09-13 12:55] VITALS: BP 149/82; PULSE 56; RESP 17; O2SAT 94
[2024-09-13] MEDS: NITROGLYCERIN 0.4MG SL TABLET SL (12:55)
[2024-09-13 13:00] VITALS: BP 103/63; PULSE 54; RESP 17; O2SAT 95
--- NOTE | 2024-09-13 13:00 | CT_ITS ---
APPROVED REPORT [employer] Driver: CLINICAL INDICATION Chest Pain TECHNIQUE Image Acquisition: A 128 slice MDCT scanner (OneBreatha View) was used for data acquisition. A noncontrast coronary calcium scan was performed. A CT attenuation threshold of 130 Hounsfield units (HU) was used for the detection of calcium in contiguous voxels of 1 sq mm in area to be counted as individual lesions. Bolus tracking in the ascending aorta with a threshold of 180 HU was performed. Immediately afterwards, ECG synchronized cardiac CT was then performed from the cardiac base to apex using retrospective gating with ECG tube current modulation. A total of 85 mL of Isovue 370 mg/mL contrast medium was administered at 5 mL/sec followed by a saline flush using a biphasic injection protocol. A tube voltage of 120 KVp was used. The patient received the following medications prior to the cardiac CT. 0.8 mg of sublingual nitroglycerin The average heart rate at the time of acquisition was 54 bpm and regular. Image Reconstruction Transaxial images were reconstructed at 0.67 mm slide thickness. Data was reviewed interactively on an advanced workstation capable of 2 and 3-dimensional displays in all conventional reconstruction formats, including multiplanar reformations, maximum intensity projections, curved multiplanar reformations, and volume rendered reconstructions. When applicable, selected routine images describing the relevant coronary anatomy and pathology were saved and sent to PACS. Complications None Technical Quality Overall image quality was good. Coronary artery opacification was adequate. Total DLP (Dose-Length Product) is 2180.2 mGy-cm. The reported value represents the total of one or more individual components during the CT acquisition of this date and at this time, and as such, the same value may appear in more than one CT report depending on the interpreting/reporting physicians. COMPARISON None FINDINGS CT Coronary Calcium Scoring LMA (Left Main Artery) = 24 LAD (Left Anterior Descending) = 530 LCX (Left Coronary Circumflex) = 313 RCA (Right Coronary Artery) = 524 Total Calcium Score = 1391 using the AJ-130 method. The observed calcium score of 1391 is at 96th percentile for subjects of the same age, sex, and race/ethnicity. The interpretation of the calcium heart score is based on the following continuum*: 0 = no calcified plaque detected (risk of coronary artery disease is very low ??? less than 5%) 1-10 = calcium detected in extremely minimal levels (risk of coronary diseases is still low ??? less than 10%) 11-100 = mild levels of plaque detected with certainty (mild or minimal narrowing of heart arteries is likely) 101-400 = definite,at least moderate levels of plaque detected (relatively high risk of a heart attack within 3-5 years) >401-999 = extensive levels of plaque detected (high risk of heart attack, high levels of vascular disease are present, high likelihood of at least one significant coronary narrowing) *The calcium heart score quantifies the burden of coronary calcification/plaque in the coronary arteries. The calcium heart score is not able to evaluate the presence or burden of non-calcified (i.e. soft) plaque. There is also identifiable calcification in the ascending thoracic aorta. Coronary CT Angiography The coronary arterial system is right dominant. Quantitative Stenosis Grading: Left Main (LM): The left main originates normally from the left sinus of Valsalva. The LM bifurcates into the left anterior descending artery and left circumflex artery. There is no there is mild calcification in the proximal LM segment with no evidence of luminal stenosis. Left Anterior Descending (LAD) and Diagonal Branches: The LAD gives off 2 diagonal branch(es). There is mixed calcified/noncalcified plaque along the entire LAD segment, with up to 70-90% luminal stenosis in the proximal LAD. Evidence of LAD-myocardial bridge. Left Circumflex (LCX) and Obtuse Marginals (OM): The LCX gives off 1 Obtuse Marginal (OM) branch(es). There is mixed calcified/noncalcified plaque in the proximal and mid LCx segments with up to 50 to 70% luminal stenosis. Right Coronary Artery (RCA): The RCA originates normally from the right sinus of Valsalva. The RCA gives off a posterior descending artery (PDA) and posterolateral (PL) branches. There is mixed calcified/noncalcified plaque along the RCA, with a region of haziness in the proximal RCA segment, likely with up to up to 70-90% luminal stenosis. Non-Coronary Cardiac Findings: Analysis of the left ventricular (LV) structure and function was performed after 3-D reconstruction of the LV from axial images, with user-corrected automatic contouring for assessment of LV volumes and user-defined reconstruction from oblique planes for measurement of 3-D cardiac structure and function. -The left ventricle systolic function is normal. -There is no left atrial appendage filling defect. Two right pulmonary veins and two left pulmonary veins drain normally into the left atrium. -No pericardial thickening or calcification. -Central and branch pulmonary arteries in the [id number] are unremarkable. -Thoracic aorta within the visualized thoracic aortic-branches in the [id number] is unremarkable. Extracardiac Structures No significant extra-cardiac findings. Note, however, that this study is focused on the cardiac findings. IMPRESSION -Extensive coronary calcification with an Agatston score = 1391 using the AJ-130 method. -The observed calcium score of 1391 is at 96th percentile for subjects of the same age, sex, and race/ethnicity. -Multivessel atherosclerotic coronary disease, with likely evidence of significant flow-limiting atherosclerosis of the proximal LAD and proximal RCA segments -CAD-RADS 4A. Management recommendations per ACC/AHA guidelines*, as clinically appropriate. *Recommendations: CAD RADS 0: Reassurance. Consider non-atherosclerotic causes of chest pain. CAD RADS 1: Consider non-atherosclerotic causes of chest pain. Consider preventive therapy and risk factor modification. CAD RADS 2: Consider non-atherosclerotic causes of chest pain. Consider preventive therapy and risk factor modification, particularly for patients with nonobstructive plaque in multiple segments. CAD RADS 3: Consider further functional testing. Consider symptom-guided anti-ischemic and preventive pharmacotherapy as well as risk factor modification per published guideline statements. CAD RADS 4A: Consider further functional testing or invasive coronary angiography with revascularization per published guideline statements. Consider symptom-guided anti-ischemic and preventive pharmacotherapy as well as risk factor modification per published guideline statements. CAD RADS 4B: Invasive coronary angiography recommended with revascularization per published guideline statements. Consider symptom-guided anti-ischemic and preventive pharmacotherapy as well as risk factor modification per published guideline statements. CAD RADS 5: Consider invasive angiography and/or viability assessment with revascularization per published guideline statements. Consider symptom-guided anti-ischemic and preventive pharmacotherapy as well as risk factor modification per published guideline statements. CRITICAL RESULT None COMMUNICATION Per this written report The coronary and cardiac findings of this CCTA were reviewed, reported, and signed by Itz Baeza MD (Physical Therapy Professor) Conclusion Electronically signed by : Radha Baeza MD 09/14/2024 16:00:41
[2024-09-13] MEDS: 0.9 % SODIUM CHLORIDE 50 ML VIAL IV (13:01)
[2024-09-13] MEDS: SODIUM CHLORIDE 0.9% 10ML SYR (RAD ONLY) 10 ML IV (13:01)
[2024-09-13] MEDS: IOPAMIDOL-370 (76%);100ML BOTTLE 85 ML IV (13:01)
[2024-09-13 13:05] VITALS: BP 117/81; PULSE 56; RESP 18; O2SAT 96
[2024-09-13 13:10] VITALS: BP 110/61; PULSE 58; RESP 17; O2SAT 95
== END 2024-09-13 13:15 | disposition home or self-care (01) ==
LOC: RAD 12:00
PROVIDERS: PCP Nurse Practitioner Family; Visit Provider Physician Assistant
DX: R94.31 Abnormal electrocardiogram [ECG] [EKG] (principal); R93.1 Abnormal findings on diagnostic imaging of heart and coronary circulation; I10 Essential (primary) hypertension; R79.89 Other specified abnormal findings of blood chemistry; R07.89 Other chest pain
CPT/HCPCS: 75574; Q9967

== ENCOUNTER 2024-10-04 08:10 | Day surgery (SDC) | payer MEDICARE, MEDICAID, SELFPAY ==
[2024-10-04] VITALS (12 sets, daily range): BP systolic 121–180; BP diastolic 60–83; PULSE 43–65; RESP 16–20; O2SAT 94–100; BMI 24.2
--- NOTE | 2024-10-04 06:44 | IR_ITS ---
APPROVED REPORT Patient Location: Outpatient PROCEDURES Selective coronary angiogram Drug-eluting stent deployment to the proximal mid and distal dominant right coronary artery in a contiguous manner INDICATION Inferior ischemia on Myoview, Coronary artery disease, Angina pectoris Informed consent was obtained prior to the procedure. COMPLICATIONS none Estimated Blood Loss: less than 10ml TECHNIQUE One percent lidocaine used to anesthetize the right anterior aspect of the wrist. The right radial artery was accessed via the Seldinger technique. A 6 Icelandic sheath was placed in the right radial artery. 2.5 mg of Verapamil, 800 mcg of nitroglycerin, 1mg Lidocaine and 5000 U Heparin were given through the arterial sheath. The 6 Icelandic JL 3 guide catheter was used to perform selective coronary angiogram. At the end of the diagnostic angiogram therapeutic heparin was administered giving a therapeutic ACT and the guide catheter was placed in the right coronary artery followed by Choice PT extra-support wire placed distally. A 5 mm x 30 mm Raul frontier stent was placed in the proximal to mid right coronary artery and deployed at 14 katrina. An additional 4 mm x 38 mm Raul frontier stent was placed distally at still overlapping the 5 mm stent and deployed at 24 katrina. The balloon was brought back and deployed at 26 katrina to match the 2 stents. Excellent angiograph results were obtained with NOÉ-3 flow being present before and after the procedure. At the end the procedure the apparatus was removed the sheath was removed and hemostasis was achieved using TR banding patient was transferred to the postop putting her in stable condition ANGIOGRAPHIC RESULTS The left main artery Normal The left anterior descending artery Has diffuse proximal 30% concentric stenosis with distal 10 and 20% stenoses. A large first diagonal artery has proximal and 30% stenosis The circumflex artery Nondominant with 10 to 20% luminal regularities The right coronary artery Massively large and dominant with eccentric proximal 80 to 90% stenosis with distal 50 and 60% stenoses giving rise to 2 large posterior descending artery and posterolateral ventricular branches The RDZ ventriculogram reveals Not performed The left ventricular end-diastolic pressure Not measured IMPRESSION Critical dominant right coronary artery disease as described above Successful stenting of the right coronary artery critical disease reduced to 0% with 2 contiguous drug-eluting stents PLAN 1. Plavix and aspirin 2. LDL less than 55 to be achieved with high intensity statin 3. Avoidance of tobacco products 4. Risk factor modification 5. Cardiac rehabilitation Electronically signed by : Rohan Longo MD 10/04/2024 10:45:53
[2024-10-04 08:44] LABS: Basophils % 0.4 % (0.1-2.0); Eosinophils # 0.2 K/mm3 (0.0-0.4); Eosinophils % 3.2 % (0.1-12.0); Hematocrit 39.3 % (42.0-52.0); Hemoglobin 13.4 g/dL (14.1-18.0); Lymphocytes # 1.1 K/mm3 (0.7-4.5); Lymphocytes % 20.6 % (10-50); Mean Corpuscular HGB Conc 34.1 g/dL (31.8-35.4); Mean Corpuscular Hemoglobin 30.4 pg (27.0-31.2); Mean Corpuscular Volume 89.1 fl (80-94); Mean Platelet Volume 8.6 fl (7.4-10.4); Monocytes # 0.7 K/mm3 (0.1-1.0); Monocytes % 12.4 % (1.7-9.3); Neutrophils # 3.4 K/mm3 (1.8-7.8); Nucleated Red Blood Cells # 0 10^3/uL; Nucleated Red Blood Cells % 0 %; Platelet Count 144 K/mm3 (142-424); Red Blood Count 4.41 M/mm3 (4.60-6.20); Red Cell Distribution Width 12.2 % (11.5-17.5); Red Cell Distribution Width-SD 40.4 fL; White Blood Count 5.3 K/mm3 (4.8-10.8)
[2024-10-04 09:03] LABS: Chloride 101 mmol/L (98-107); Potassium 4.4 mmoL/L (3.5-5.1); Sodium 139 mmol/L (136-145)
[2024-10-04 09:06] LABS: Blood Urea Nitrogen 19 mg/dl (9-20); Creatinine Clearance Estimated 79 mL/min (50-200); Estimated Glomerular Filt Rate 68 ml/min (>60); GFR (African American) 82 ML/MIN (>60)
[2024-10-04 09:07] LABS: Anion Gap 11.4 mEq/L (5-15); Calcium 9.3 mg/dl (8.4-10.2); Carbon Dioxide 31 mmol/L (22.0-30.0); Glucose 98 mg/dl (74-100)
[2024-10-04] MEDS: HEPARIN 1,000 UNITS/ML 10ML VIAL (CATH LAB) 5000 UNIT IV (09:38)
[2024-10-04] MEDS: LIDOCAINE 1% 10ML MDV 10 ML IJ (09:39)
[2024-10-04] MEDS: HEPARIN 1,000 UNITS/500ML NS (CATH LAB) 3000 UNIT IV (09:39)
[2024-10-04] MEDS: 0.9 % SODIUM CHLORIDE 500 ML 25 ML IV (09:39)
[2024-10-04] MEDS: diphenhydrAMINE 50MG/ML VIAL 50 MG IV (09:40)
[2024-10-04] MEDS: NITROGLYCERIN 800MCG/8ML SYR (CATH LAB) 800 MCG IA (09:40)
[2024-10-04] MEDS: VERAPAMIL 2.5MG/ML 2ML VIAL 2.5 MG IV (09:40)
[2024-10-04] MEDS: FENTANYL 100MCG/2ML VIAL 50 MCG IV (10:15)
--- NOTE | 2024-10-04 10:15 | SUR.PHASEII ---
no beta tammi, christine/arb per md due to hr/bp too low
[2024-10-04] MEDS: MIDAZOLAM HCL 1MG/ML 5ML VIAL 1 MG IV (10:16)
[2024-10-04] MEDS: CLOPIDOGREL 300MG TABLET 600 MG PO (10:24)
--- NOTE | 2024-10-04 13:50 | SUR.PHASEII ---
[employer] OFFERED WHEEL CHAIR FOR DISCHARGE MULTIPLE TIMES, HE REFUSED.
[2024-10-04] MEDS: IOPAMIDOL-370 (76%);100ML BOTTLE 90 ML IV (14:31)
[2024-10-04 14:53] LABS: CATHL Activated Clotting Time 358 SEC (74-125)
== END 2024-10-04 13:53 | disposition home or self-care (01) ==
PROVIDERS: PCP Nurse Practitioner Family; Visit Provider Internal Medicine
DX: I25.118 Atherosclerotic heart disease of native coronary artery with other forms of angina pectoris (principal); I77.1 Stricture of artery; R06.00 Dyspnea, unspecified; R94.31 Abnormal electrocardiogram [ECG] [EKG]; R79.89 Other specified abnormal findings of blood chemistry; R93.1 Abnormal findings on diagnostic imaging of heart and coronary circulation; F17.210 Nicotine dependence, cigarettes, uncomplicated; Z79.899 Other long term (current) drug therapy; J44.9 Chronic obstructive pulmonary disease, unspecified; D64.9 Anemia, unspecified; I71.43 Infrarenal abdominal aortic aneurysm, without rupture; I10 Essential (primary) hypertension; C20 Malignant neoplasm of rectum; G40.909 Epilepsy, unspecified, not intractable, without status epilepticus; E78.5 Hyperlipidemia, unspecified; F41.9 Anxiety disorder, unspecified; Z86.73 Personal history of transient ischemic attack (TIA), and cerebral infarction without residual deficits; Z96.642 Presence of left artificial hip joint
CPT/HCPCS: 80048; 85025; 85347; 92928; 93454; 99152; C1725; C1760; C1769; C1874; C9600; J1200; J1644; J3010; Q9967

== ENCOUNTER 2024-10-10 09:29 | Day surgery (SDC) | payer MEDICARE, MEDICAID, SELFPAY ==
[2024-10-05 13:10] VITALS: BMI 21.2
[2024-10-10] VITALS (8 sets, daily range): BP systolic 152–166; BP diastolic 57–83; PULSE 51–56; RESP 16–18; TEMP 36–36.1; O2SAT 95–98
[2024-10-10] MEDS: PHENYLEPHRINE 2.5% OPHTH SOLN 2ML OP ×3 (11:20→11:30)
[2024-10-10] MEDS: TETRACAINE 0.5% OPTH SOL 15ML OP ×3 (11:20→11:30)
[2024-10-10] MEDS: CYCLOPENTOLATE 2% OPHTH SOLN 2ML BOTTLE OP ×3 (11:20→11:30)
[2024-10-10] MEDS: SODIUM CHLORIDE 0.9% 10ML FLUSH SYRINGE 10 ML IV ×2 (11:46→12:13)
[2024-10-10 12:01] LABS: Basophils % 0.2 % (0.1-2.0); Eosinophils # 0.2 Kmm3 (0.0-0.4); Eosinophils % 3.1 % (0.1-12.0); Hematocrit 37.6 % (42.0-52.0); Hemoglobin 12.8 g/dL (14.1-18.0); Lymphocytes # 0.8 K/mm3 (0.7-4.5); Lymphocytes % 16.4 % (10-50); Mean Corpuscular Hemoglobin 30.3 pg (27.0-31.2); Mean Corpuscular Volume 89.1 fl (80-94); Mean Platelet Volume 8.7 fl (7.4-10.4); Monocytes # 0.5 K/mm3 (0.1-1.0); Monocytes % 10.1 % (1.7-9.3); Neutrophils # 3.4 K/mm3 (1.8-7.8); Nucleated Red Blood Cells # 0 10^3/uL; Nucleated Red Blood Cells % 0 %; Platelet Count 150 K/mm3 (142-424); Red Blood Count 4.22 M/mm3 (4.60-6.20); Red Cell Distribution Width 12.1 % (11.5-17.5); Red Cell Distribution Width-SD 39.2 fL; White Blood Count 4.9 K/mm3 (4.8-10.8)
[2024-10-10] MEDS: MIDAZOLAM 2MG/2ML VIAL 1 MG IV (12:11)
[2024-10-10 12:12] LABS: Anion Gap 9.1 mEq/L (5-15); Blood Urea Nitrogen 17 mg/dl (9-20); Carbon Dioxide 30 mmol/L (22.0-30.0); Chloride 105 mmol/L (98-107); Creatinine Clearance Estimated 85 mL/min (50-200); Estimated Glomerular Filt Rate 75 ml/min (>60); GFR (African American) 91 ML/MIN (>60); Glucose 96 mg/dl (74-100); Potassium 4.1 mmoL/L (3.5-5.1); Sodium 140 mmol/L (136-145)
[2024-10-10] MEDS: TOBRAMYCIN/DEX OPTH SUSP 2.5ML OP (12:14)
[2024-10-10] MEDS: TIMOLOL 0.5% OPTH SOLN 5ML OP (12:14)
[2024-10-10] MEDS: LIDOCAINE 1% PF 2ML AMPULE 2 ML IJ (12:14)
--- NOTE | 2024-10-10 14:21 | P.PCN_ITS ---
[facility] Procedure Note Date: 10/10/24 Time: 14:21 Procedure Note:: Preoperative Diagnosis: Cataract combined NS Cortical Complex [Left] Eye Postop diagnosis: same Operation: Microscopic phacoemulsification with intraocular lens implant [Left] Eye Specimen: None Blood Loss: None The patient was examined in the office with a complaint of poor vision in the [left] eye. The patient reports that this interferes with ADLs such as reading, watching TV and/or driving or the vision is like looking through a foggy haze and is very troubling. The patient was examined and found to have a visually significant cataract with best corrected vision of [20/CF 3ft] by refraction and/or glare testing. Treatment options, risks and benefits were explained and the patient elected to have cataract surgery in an attempt to improve their vision. The patient had the eye anesthetized with topical tetracaine, the eye ways prepped and draped in the usual fashion for cataract surgery. A paracentesis and a temporal keratotomy were made. 0.2cc of 1% lidocaine PF was placed into the anterior chamber. Vision blue was placed in the anterior chamber to stain the anterior capsule. Ater it had been in the eye for 20 seconds, it was removed by I&A. An aqueous/viscoelastic exchange was done and a 360 degree capsulorexis was performed. Through hydrodissection and delineation with BSS on a cannula was done. The lens nucleus was phecoemulsified with CDE of [14.87]. Residual cortical material was removed using automated I&A The capsular bag was deepened with viscoelastica and a PCIOL was placed in the capsular bag with good centration and stability. Residual viscoelastic was removed using automated I&A. The keratotomy incision was hydrated with BSS on a cannula. The wound were checked and found to be water tight. IOP was checked digitally and adjusted as needed so as not to be too high. 1 drop of timolol 0.5%, ofloxacin, prednisolone acetate and ketorolac was instilled and eye shield taped over the eye. The patient was taken to recovery in good condition and will be seen postoperatively.
== END 2024-10-10 12:40 | disposition home or self-care (01) ==
PROVIDERS: Internal Medicine; PCP Nurse Practitioner Family; Visit Provider Ophthalmology
PROC: (CPT 66984; principal; 2024-10-10 12:00)
DX: Z95.5 Presence of coronary angioplasty implant and graft (principal); H25.812 Combined forms of age-related cataract, left eye
CPT/HCPCS: 66984; 36415; 80048; 85025; J2250; V2632

== ENCOUNTER 2024-10-25 09:14 | Outpatient (CLI) | payer MEDICARE, MEDICAID, SELFPAY | END 2024-10-25 23:59 | disposition home or self-care (01) | LOC: RAD 09:15 | PROVIDERS: PCP Nurse Practitioner Family; Visit Provider Internal Medicine Medical Oncology | DX: K62.89 Other specified diseases of anus and rectum (principal) ==

== ENCOUNTER 2024-10-30 10:52 | Outpatient (CLI) | payer MEDICARE, MEDICAID, SELFPAY ==
--- NOTE | 2024-10-30 11:00 | CT_ITS ---
FINAL REPORT TECHNIQUE: Routine axial images were obtained from the lung apices to below the diaphragm following IV contrast administration. Individualized dose reduction techniques using automated exposure control or adjustment of the mA and/or kV according to the patient size were employed. CLINICAL HISTORY: rectal mass COMPARISON: 07/20/2024 FINDINGS: No significant mediastinal mass or adenopathy. The ascending aorta measures 3.8 cm in diameter. No pleural or pericardial effusion is seen. There are advanced changes of centrilobular emphysema. Large bullae are noted in the upper lobes. No discrete pulmonary masses identified. IMPRESSION: Advanced changes of centrilobular emphysema. Reviewed, Interpreted and Dictated by Tino Cyr MD Transcribed by Xiomara Cason Authenticated and [facility]
--- NOTE | 2024-10-30 11:00 | CT_ITS ---
FINAL REPORT TECHNIQUE: After the administration of oral and intravenous contrast, axial images were obtained through the abdomen and pelvis by computed tomography. The study was performed with techniques to keep radiation dose as low as reasonably achievable, (ALARA). Individual dose reduction techniques using automated exposure control or adjustment of mA and/or kV according to the patient's size were employed. CLINICAL HISTORY: rectal mass COMPARISON: 11/10/2022 FINDINGS: Abdomen: The liver parenchyma is homogeneous. The gallbladder is present. There are multiple calcified gallstones in the gallbladder. The spleen, pancreas, adrenals and kidneys appear unremarkable. The abdominal aorta measures up to 2.7 cm in diameter. There is no free fluid or adenopathy. Pelvis: The appendix is normal. Scattered diverticula are noted within the sigmoid colon. There is no evidence of diverticulitis. The urinary bladder is unremarkable. The previously noted large mass in the rectum is no longer seen. There is no free fluid or adenopathy. There is streak artifact from left hip prosthesis. A 30% compression deformity is noted of the superior endplate of L1. IMPRESSION: Previously noted large rectal mass no longer seen. 30% compression deformity of L1. Reviewed, Interpreted and Dictated by Tino Cyr MD Transcribed by Xiomara Cason Authenticated and . [facility]
[2024-10-30] MEDS: SODIUM CHLORIDE 0.9% 10ML SYR (RAD ONLY) 10 ML IV (11:07)
[2024-10-30] MEDS: BARIUM SULFATE(READI-CAT2);450ML BOTTLE 450 ML PO (11:07)
[2024-10-30] MEDS: IOPAMIDOL-370 (76%);100ML BOTTLE 75 ML IV (11:07)
== END 2024-10-30 23:59 | disposition home or self-care (01) ==
LOC: RAD 10:53
PROVIDERS: PCP Nurse Practitioner Family; Visit Provider Internal Medicine Medical Oncology
DX: K62.89 Other specified diseases of anus and rectum (principal); J43.2 Centrilobular emphysema
CPT/HCPCS: 71260; 74177; Q9967

== ENCOUNTER 2025-02-13 09:46 | Outpatient (CLI) | payer MEDICARE, MEDICAID, SELFPAY ==
--- OUTSIDE RECORDS SUMMARY | 2025-02-13 09:50 | XMS_ITS | Clinical Summary ---
Author Organization [facility] Address [address] [facility] [place] [address] Phone Care Team Providers Care Senior Finance Manager Name Role Phone Terrance Small MD Unavailable [phone] Social History Tobacco Use Types Packs/Day Years Used Date Smoking Tobacco: Never Assessed Sex and Gender Information Value Date Recorded Sex Assigned at Not on file Legal Sex Male 11:30 AM EDT Gender Identity Not on file Sexual Orientation Not on file Plan of Treatment Health Maintenance Due Date Last Done Comments Annual Wellness Exam 12/01/1963 Hepatitis C Screening 1978 DTaP/TDaP/Td (1 - Tdap) 12/01/1979 Cologuard 2005 Colon Cancer Screening 2005 Colonoscopy 2005 FIT 2005 Sigmoidoscopy 2005 Virtual Colonography 2005 Pneumococcal Vaccine 50+ (1 of 1 - PCV) 2010 Zoster (1 of 2) 2010 COVID-19 Vaccine (2023-2 5 season) 2024 Influenza Vaccine (#1) 2025 Hepatitis B Vaccine Aged Out No longe r eligible based on patient's age to complete this topic Meningococcal B Vaccine Aged Out No l onger eligible based on patient's age to complete this topic Insurance [facility] [id number] MDR Care Teams Senior Finance Manager Relationship Specialty Start Date End Date Terrance Small MD PCP - Hematology/Oncology Internal Medicine 01/02/16
--- OUTSIDE RECORDS SUMMARY | 2025-02-13 09:50 | XMS_ITS | Clinical Summary ---
Author Organization [facility] Address [address] [place] [address] Care Team Providers Care Christmas Tree Farm Manager Name Role Phone Kirill Shepherd MD Primary Care Provider [phone] Allergies No known active allergies Medications aspirin 81 MG EC tablet Take 81 mg by mouth daily. Active amLODIPine (NORVASC) 10 MG tablet Take 10 mg by mouth daily. Active busPIRone (BUSPAR) 10 MG tablet Take 10 mg by mouth 3 (three) times a day. Active hydrochlorothia zide (HYDRODIURIL) 25 MG tablet Take 25 mg by mouth daily. Active famotidine (PEPCID) 20 MG tablet take 1 tablet by mouth twice a day 0 02/27/2016 Active VIMPAT 200 MG tablet TAKE 1 TABLET TWICE A DAY 0 03/20/2016 Active traZODone (DESYREL) 50 MG tablet TAKE 1 TABLET EVERY BEDTIME 0 02/27/2016 Active VIMPAT 50 MG tablet tablet TAKE 5 TABLETS BY MOUTH TWICE DAILY 0 01/30/2016 Active atorvastatin (LIPITOR) 40 MG tabletIndicatio ns:Middle cerebral artery stenosis, right take 1 tablet by mouth EVERY NIGHT 30 tablet 5 09/09/2018 Active levETIRAcetam (KEPPRA PO) Take 200 mg by mouth 2 (Two) Times a Day. Active pantoprazole (PROTONIX) 20 MG EC tablet Take 20 mg by mouth Daily. Active vitamin C (ASCORBIC ACID) 250 MG tablet Take 250 mg by mouth Daily. Active multivitamin with minerals tablet tablet Take 1 tablet by mouth Daily. Active Active Problems Problem Noted Date Diagnosed Date Feeding difficulty 01/13/2016 Acute right MCA stroke, S/P Right thrombectomy with intracerebral stent 01/07/2016 Tobacco abuse 01/07/2016 H/O Alcohol abuse (none x 2yrs) 01/07/2016 PARKER/ R/O CKD 01/07/2016 Seizure disorder 01/07/2016 Thrombocytopenia 01/07/2016 Social History Tobacco Use Types Packs/Day Years Used Date Smoking Tobacco: Every Day Cigarettes Smokeless Tobacco: Never Tobacco Cessation:Ready to Q uit: No Alcohol Use Standard Drinks/Week Comments No 0 (1 standard drink = 0.6 oz pur e alcohol) Former heavy ETOH use Abuse Screen Answer Date Recorded Unsafe at Home or Work/School Not on file Feels Threatened by Someone? Not on file 04/2023 Does Anyone Keep You from Co ntacting Others or Doint Things Outside the Home? Not on file 03/31/2023 Physical Sign of Abuse Present Not on file 1 Housing Stability Answer Date Recorded Current Living Arrangements Not on file 03/21 Potentially Unsafe Housing Conditions Not on chinyere e 03/31/2023 Family and Community Support Answer Gabe e Recorded Help with Day-to-Day Activities Not on file 03/31/2023 Lonely or Isolated Not on file 03/31/2023 Employment Answer Date Recorded Do you want help finding or keeping work or a ramila b? Not on file 03/31/2023 Disabilities Answer Date Recorded Concentrating, Remembering, or Making Decisions Difficulty Not on file 03/31/2023 Doing Errands Independently Difficulty Not on fi le 03/31/2023 Education Answer Date Recorded Help with school or training? Not on file Preferred Language Not on file 03/31/2023 Sex and Gender Information Value Date Recorded Sex Assigned at Not on file Legal Sex Male 1:21 PM EDT Gender Identity Not on file Sexual Orientation Not on file Last Filed Vital Signs Vital Sign Reading Time Taken Comments Blood Pressure 120/70 10/15/2021 12:22 PM EDT 120/60 left arm setting Pulse 97 09/23/2016 1:10 PM EDT Temperature 36.4 C (97.5 F) 10/15/2021 12:22 PM EDT Respiratory Rate 16 01/14/2016 4:17 PM EDT Oxygen Saturation 91% 01/14/2016 12: 53 PM EDT Inhaled Oxygen Concentration - - Weight 93.5 kg (206 lb 3.2 oz) 10/15/2021 12:22 PM EDT Height 193 cm (6' 4 ) 10/15/2021 12:22 PM EDT Body Mass Index 25.1 10/15/2021 12:22 PM EDT Plan of Treatment Health Maintenance Due Date Last Done Comments TDAP/TD VACCINES (1 - Tdap) 12/01/1979 COLOGUARD 2005 COLON CANCER SCREENING 5 YEA R SIGMOIDOSCOPY [address] COLONOGRAPHY 2005 FECAL OCCULT BLOOD TEST 2005 FIT Testing (1 year) 2005 Pneumococcal Vaccine 50+ (1 of 1 - PCV) 2010 ZOSTER VACCINE (1 of 2) 2010 ANNUAL PHYSICAL 09/22/2016 HEPATITIS C SCREENING 09/22/2016 COVID-19 Vaccine (2 - season) 02/20/202403/2021 INFLUENZA VACCINE 03/21/2025 COLONOSCOPY 08/29/2033 08/30/2023, 06/24/2019 COLORECTAL CANCER SCREENING 08/29/2033 Medical Devices Implanted Type Area Civil Draftsman Device Identifier Shelf Expiration Date Model / Serial / Lot Stent Wingspan Sys 3.5x15mm - [id number] Implanted:Qty: 1 on 01/07/2016 by Orlando Deng MD at [facility] Implant JASON ISAAK 05/20/2018 [id number] / / [id number] Description:right [facility] Insurance [id number] MEDICARE ADVANTAGE Care Teams Christmas Tree Farm Manager Relationship Specialty Start Date End Date Kirill Shepherd MD PCP - General Emergency Medicine 05/17/19
--- OUTSIDE RECORDS SUMMARY | 2025-02-13 09:50 | XMS_ITS | Clinical Summary ---
Author Organization Healthcare Address [address] [place] [address] Care Team Providers Care Unloading Checker Name Role Phone Kirill Shepherd MD Primary Care Provider [phone] Tino Smith MD Unavailable [phone] Allergies Active Allergy Reactions Criticality Noted Date Comments Penicillins Other - please docum ent in the comment field Low 01/14/2023 As child Medications aspirin 81 MG EC tablet Take 1 tablet (81 mg) by mouth every night. Active atorvastatin (Lipitor) 40 MG tablet atorvastatin 40 mg tablet TAKE ONE TABLET BY MOUTH EVERY DAY AT BEDTIME FOR cholesterol Active traZODone (Desyrel) 50 MG tablet trazodone 50 mg tablet TAKE ONE TABLET BY MOUTH AT BEDTIME FOR DEPRESSION Active famotidine (Pepcid) 20 MG tablet famotidine 20 mg tablet TAKE ONE TABLET BY MOUTH EVERY DAY AT BEDTIME Active multivitamin (Theragran-M) tablet Take 1 tablet by mouth 1 (one) time each day in the morning. Active Symbicort 160-4.5 MCG/ACT inhaler INHALE TWO PUFFS BY MOUTH TWICE DAILY FOR copd 3 Active ascorbic acid (vitamin C) 500 MG tablet Take 1 tablet (500 mg) by mouth 1 (one) time each day. Active levETIRAcetam (Keppra) 500 MG tablet Take 1 tablet (500 mg) by mouth 2 (two) times a day. Active lacosamide (Vimpat) 200 mg tablet tablet Take 1 tablet (200 mg) by mouth 2 (two) times a day. Take with 50mg for total dose of 250mg BID Active lacosamide (Vimpat) 50 MG tablet Take 1 tablet (50 mg) by mouth 2 (two) times a day. Take with 200mg for total dose of 250mg BID Active albuterol (ProAir HFA) 108 (90 Base) MCG/ACT inhaler INHALE 2 PUFFS BY MOUTH TWICE DAILY FOR COPD 3 Active amLODIPine (Norvasc) 10 MG tablet Take 1 tablet (10 mg) by mouth 1 (one) time each day. 3 Active busPIRone (Buspar) 10 MG tablet TAKE ONE TABLET BY MOUTH THREE TIMES DAILY FOR ANXIETY 3 Active pantoprazole (ProtoNix) 20 MG EC tablet Take 1 tablet (20 mg) by mouth 1 (one) time each day. 3 Active Spiriva HandiHaler 18 MCG inhalation capsule INHALE THE CONTENTS OF 1 CAPSULE VIA HANDIHALER ONCE DAILY DIRECTED 3 Active Active Problems Problem Noted Date Diagnosed Date Rectal polyp 01/20/2023 Rectal mass 11/17/2022 Family History Medical History Relation Name Comments Hyperlipidemia Other Hypertension Other Breast cancer Sister Anesthesia problems Neg Hx Malig Hyperthermia Neg Hx Relation Name Status Comments Other Sister Social History Tobacco Use Types Packs/Day Years Used Date Smoking Tobacco: Every Day Cigarettes Smokeless Tobacco: Never Tobacco Cessation:Ready to Q uit: Yes; Counseling Given: Not Answered Alcohol Use Standard Drinks/Week Comments Never 0 (1 standard drink = 0.6 oz pur e alcohol) CAGE ASSESSMENT Answer Date Recorded Cage unable to access Not on file 01/20/2023 Cage max number of drinks Not on file 2022 Cage Beverages a week Not on file 01/20/2023 Have you ever felt you should CUT down on your d rinking? 0 01/20/2023 Have you been ANNOYED by people criticizing your drinking? 0 01/20/2023 Have you felt GUILTY about your drinking? 0 01/20/2023 Have you had a drink first t andrea in the morning ([employer]GER [employer]) to steady your nerves or to get rid of a hangover? 0 01/20/2023 CAGE Questionnaire Score 0 023 Sex and Gender Information Value Date Recorded Sex Assigned at Not on file Legal Sex Male 6:55 PM EDT Gender Identity Not on file Sexual Orientation Not on file Last Filed Vital Signs Vital Sign Reading Time Taken Comments Blood Pressure 120/62 09/07/2023 11:14 AM EDT Pulse 98 09/07/2023 11:14 AM EDT Temperature 36.5 C (97.7 F) 09/07/2023 11:14 AM EDT Respiratory Rate 18 08/30/2023 12:05 PM EDT Oxygen Saturation 95% 09/07/2023 11:14 AM EDT Inhaled Oxygen Concentration - - Weight 82 kg (180 lb 12.4 oz) 09/07/2023 11:14 A M EDT Height 190.5 cm (6' 3 ) 09/07/2023 11:14 AM EDT Body Mass Index 22.6 09/07/2023 11:14 AM EDT Plan of Treatment Health Maintenance Due Date Last Done Comments [facility]-Depression Screening 1960 [facility]-HIV Screening 1960 [facility]-Medicare Annual Wellness (AWV) 1960 [facility]-Infant/Child/Adol SDOH Screenings 1960 [facility]- SDOH Screenings 1978 [facility]-Adult SDOH Screenings 1978 [facility]-DTaP,Tdap,and Td Vaccine s (1 - Tdap) 12/01/1979 [facility]-Pneumococcal Vaccine: 50 + Years (1 of 2 - PCV) 12/01/1979 CT Colonography 2005 FIT-DNA 2005 FIT 2005 FOBT 2005 Sigmoidoscopy 2005 [facility]-RSV Vaccine: 60+ Years o r (1 - Risk 60-74 years 1-dose series) 2020 [facility]-Zoster Vaccines (2 of 2) 10/11/2023 08/16/2023 SOI-DEYHV-22 Vaccine (3 - 2023- season) 2024 04/24/2021, 08/28/2020 Colonoscopy 08/29/2024 08/30/2023, 06/24/2019 [facility]-Colorectal Cancer Screening 08/29/2024 [facility]-Influenza Vaccine (#1) 02/19/202504/23, 04/21/2022 [facility]-Hepatitis A Vaccines Aged Out 02/07/2019 No longer eligible based on patient's age to complete this topic [facility]-Hepatitis C Screening Completed 06/24/2019 HPV Vaccines Aged Out No longer eligi ble based on patient's age to complete this topic [facility]-HIB Vaccines Aged Out No longer e ligible based on patient's age to complete this topic [facility]-IPV Vaccines Aged Out No longer e ligible based on patient's age to complete this topic [facility]-Rotavirus Vaccines Aged Out No lo nger eligible based on patient's age to complete this topic Procedures Procedure Name Priority Date/Time Associated Diagnosis Comments COLONOSCOPY Routine 08/30/2023 11:39 AM EDT Rectal mass HEPATITIS C ANTIBODY - ED W/REFLEX TO HCV QUANT PCR Routine 06/24/2019 3:37 AM EST from Last 3 Months or Most Recently Relevant to Health Maintenance Results * Colonoscopy (08/30/2023 11:39 AM EDT) Anatomical Region Laterality Modality Endoscopy Narrative 08/30/2023 12:23 PM EDT Table formatting from the original result was not included. Impression: Normal. 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 Underwent transanal excision. Recent MRI suggest abnormal mesorectal lymph node. Today, colonoscopy with healthy-appearing scar in the rectum consistent with prior transanal excision site. No other masses or lesions. Recommend repeat endoscopy in 1 year. Recommendations Repeat colonoscopy in 1 year Indication Order Indication: Rectal mass Medications See anesthesia record for anesthesia administered medications. Staff Staff Role Sabina Edwards CRNA CRNA Hourigan, Jon S, MD Proceduralist Yanely Lorenzana Endo Welder Fitter Helper Justine Arellano MD Anesthesiologist Carloz Gonzalez Endo Nurse Preprocedure A history and physical has been performed, and patient medication allergies have been reviewed. The patient's tolerance of previous anesthesia has been reviewed. The risks and benefits of the procedure and the sedation options and risks were discussed with the patient. All questions were answered and informed consent obtained. Details of the Procedure The patient underwent monitored anesthesia care, which was administered by an anesthesia professional. The patient's blood pressure, heart rate, level of consciousness, respirations and oxygen were monitored throughout the procedure. A digital rectal exam was performed. A perianal exam was performed. The scope was introduced through the anus and advanced to the cecum. Retroflexion was performed in the rectum. The quality of bowel preparation was evaluated using the [place] Bowel Preparation Scale with scores of: right colon = 2, transverse colon = 2, left colon = 2. The total BBPS score was 6. Bowel prep was adequate. The patient experienced no blood loss. The procedure was not difficult. The patient tolerated the procedure well. There were no apparent adverse events. Attestation I personally performed the entire procedure Events Procedure Events Event Event Time ENDO SCOPE IN TIME 08/30/2023 11:22 AM ENDO CECUM REACHED 08/30/2023 11:35 AM ENDO SCOPE OUT TIME 08/30/2023 11:37 AM Specimens No specimens were documented in this log. Findings All observed locations appeared normal. 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 Yes Care Teams Unloading Checker Relationship Specialty Start Date End Date Kirill Shepherd MD [address] [place] [address] PCP - General 11/01/20 Tino Smith MD [address] [facility] [address] [place] [id number] Surgeon Colon and Rectal Surgery 09/07/23
--- OUTSIDE RECORDS SUMMARY | 2025-02-13 09:50 | XMS_ITS | Encounter Summary ---
Author Organization Healthcare Address [address] [place] [address] Care Team Providers Care Inspector Rough Castings Name Role Phone Kirill Shepherd MD Primary Care Provider [phone] Tino Smith MD Unavailable [phone] Encounter Details Date Type Department Care Team (Late st Contact Info) Description 11/02/2022 Lab Requisition [facility] [address] [place] [address] Tino Smith MD [address] [facility] [address] [place] [id number] Neoplasm of uncertain behavior of rectum Social History Tobacco Use Types Packs/Day Years Used Date Smoking Tobacco: Never Assessed Sex and Gender Information Value Date Recorded Sex Assigned at Not on file Legal Sex Male 6:55 PM EDT Gender Identity Not on file Sexual Orientation Not on file documented as of this encounter Plan of Treatment Not on file documented as of this encounter Procedures Procedure Name Priority Date/Time Associated Diagnosis Comments SURGICAL PATHOLOGY CONSULT Routine 11/02/2022 10:46 AM EDT Neoplasm of uncertain behavior of rectum documented in this encounter Results * Surgical Pathology Consult (11/02/2022 10:46 AM EDT) Case Report Sugical Pathology Consult Case: [id number] Authorizing Provider: Tino Smith MD Collected: 11/02/2022 1046 Ordering Location: [facility] Received: 11/02/2022 1101 Pathologist: Maddi Cobb MD Specimen: Rectal, [id number] 11/03/2022 10:21 AM EDT [facility] Final Diagnosis LARGE INTESTINE, DESCENDING COLON, BIOPSY ([id number]; 10/16/2022): - TUBULAR ADENOMA. LARGE INTESTINE, SIGMOID COLON, BIOPSY ([id number]; 10/16/2022): - TUBULAR ADENOMA. RECTUM, MASS, BIOPSY ([id number] C; 10/16/2022): - FRAGMENTS OF TRADITIONAL SERRATED ADENOMA (SEE COMMENT). 11/03/2022 10:21 AM EDT [facility] at 1021 EDT Comment The rectal mass biopsy shows multiple fragments of traditional serrated adenoma. There is no evidence of high-grade dysplasia or carcinoma on the submitted biopsy. The findings may not be the healthcare representative of the entire mass described and further clinical correlation is recommended. 11/03/2022 10:21 AM EDT [facility] Clinical Information D37.5 - Neoplasm of uncertain behavior of rectum [ICD-10-CM] 11/03/2022 10:21 AM EDT [facility] Gross Description A. [id number] Received along with a corresponding pathology report from [facility] are 6 slide(s) labeled outside case: [id number] collected on 10/16/2022. 11/03/2022 10:21 AM EDT [facility] Note: A resident was involved in the service. I attest I examined the relevant preparations for the specimens and confirmed the diagnosis or interpretation. 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
--- OUTSIDE RECORDS SUMMARY | 2025-02-13 09:50 | XMS_ITS | Clinical Summary ---
Author Organization [facility] Address [address], [address] [place] [address] Care Team Providers Care Drill Runner Helper Name Role Phone Alyssa Malave APRN, NP Primary Care Provider [phone] Social History Tobacco Use Types Packs/Day Years Used Date Smoking Tobacco: Never Assessed Sex and Gender Information Value Date Recorded Sex Assigned at Not on file Legal Sex Male 1:37 PM EDT Gender Identity Not on file Sexual Orientation Not on file Plan of Treatment Not on file Insurance [employer] Care Teams Drill Runner Helper Relationship Specialty Start Date End Date Alyssa Malave APRN - NP [address] [place] [address] [address] [place] [address] PCP - General Family Medicine 01/17/16
--- OUTSIDE RECORDS SUMMARY | 2025-02-13 09:50 | XMS_ITS | Clinical Summary ---
Author Organization Health Address [facility] [place] [address] Care Team Providers Care Director E Learning Name Role Phone Unavailable Primary Care Provider Unavailabl e Source Comments This information has been disclosed to you from confidential records protectedfrom disclosure by state law. You shall make no further disclosure of thisinformation without the specific, written, and informed release of theindividual to whom it pertains, or as otherwise permitted by law. A generalauthorization for the release of medical or other information is not sufficientfor the purposes of therelease of HIV test results or diagnoses. [id number] Health Active Problems Problem Noted Date Diagnosed Date Other and unspecified alcoho l dependence, unspecified drinking behavior 10/08/2010 Complications affecting othe r specified body systems, hypertension 10/08/2010 Other abnormal blood chemistry 08/31/2008 Demyelinating disease of central nervous system 08/01/2008 Overview (03/21/2015): ICD-10 Transition Encounter for long-term (current) use of other m edications 08/01/2008 Cocaine abuse in remission 01/11/2008 Overview (03/21/2015): ICD-10 Transition Unspecified adverse effect o f unspecified drug, medicinal and biological substance 01/11/2008 Other and unspecified antico nvulsants causing adverse effect in therapeutic use 01/11/2008 Partial epilepsy with impair ment of consciousness, intractable 01/11/2008 Overview (03/21/2015): ICD-10 Transition Resolved Problems Problem Noted Date Diagnosed Date Resolved Date Alcohol abuse, in remission 01/11/2008 10/08/2010 Social History Tobacco Use Types Packs/Day Years Used Date Smoking Tobacco: Never Assessed Sex and Gender Information Value Date Recorded Sex Assigned at Not on file Legal Sex Male 10:36 PM EST Gender Identity Not on file Sexual Orientation Not on file Plan of Treatment Not on file
--- OUTSIDE RECORDS SUMMARY | 2025-02-13 09:50 | XMS_ITS ---
Author Organization [facility] Care Team Providers Care Manager Installation Name Role Phone Bhavana Zuñiga Unavailable Unavailable Kirill Garcia Michael Unavailable Unavailable Rosenda Klein Unavailable Unavailable Allergies and adverse reactions No Known Allergies Care Team Name Role Address Phone Organization Dates Kirill Shepherd PCP [address] [place] [address], [address], [facility] (Office): : [facility] 07/03/2019 - 07/06/2019 Bhavana Zuñiga [address], [address], [facility] (Office): : [facility] 07/03/2019 - 07/06/2019 Kirill Garcia [address] [place] [address], [address], [facility] (Office): : [facility] 07/03/2019 - 07/06/2019 Rosenda Klein [address] [place] [address], [address], [facility] (Office): : [facility] 07/03/2019 - 07/06/2019 Goals Section Goals Description Status Target Date Resident will be able to com plete ADL's independently - will have staff assist as needed to complete ADL care needs, daily as measured by clean, well groomed and odor free Active 06/19/2020 Resident will be clean warm and odor free through adequate toileting and Perineal Care Active 06/19/2020 Resident will communicate an y complaints of discomfort and/or pain to staff. Active 06/19/2020 Resident will have any sympt oms of a fracture identified promptly by nursing staff. Active 06/19/2020 Resident will maintain adequ ate nutrition AEB having a stable weight. Active 06/19/2020 Resident will not develop co mplications of immobility/decreased mobility as measured by no pressure ulcers, contractures, pneumonia Active 06/19/2020 Resident will not experience any injuries related to a fall throughout the next review period. Active 06/19/2020 Resident's Skin will remain intact through the n ext review. Active 06/19/2020 Residents Advanced Directive will be honored. Ac tive 06/19/2020 Will have needs met by assistance of staff as ne eded. Active 06/19/2020 Immunizations Immunization Status Vaccine Details Vaccine Code CodeSystem Date Notes Influenza completed Influenza, high-dose, split virus, quadrivalent, injectable, preservative free 197 CVX created date: 06/16/2019 administer ed date: 03/21/2019 Per resident received at [facility] TB 1 Step Mantoux (PPD) completed tuberculin skin test; unspecified formulation Given 0.1 ml Right Forearm subcutaneously 98 CVX created date: 07/03/2019 consent date: 07/03/2019 administer ed date: 07/03/2019 TB 1 Step Mantoux (PPD) completed tuberculin skin test; unspecified formulation lotNumber: [id number] expiry: 09/12/2021 Mfg: tubersol 0.1 ml Given 0.1 ml Left Forearm intradermally 98 CVX created date: 06/16/2019 consent date: 06/16/2019 administer ed date: 06/16/2019 Educated by Ana Watt on 06/16/2019 See MAR Pneumococcal - Historical Type Unknown cancelled pneumococcal conjugate vaccine, 13 valent 133 CVX created date: 06/16/2019 consent date: 06/16/2019 Refuses all pneumonia vaccines at this time Mental Status Section Date Assessment Total Score Description 07/06/2019 CAM 0 No delirium ind icated 07/06/2019 CAM 0 No delirium ind icated Problems Problem # Description Date of onset Resolved Date Code CodeSystem Concern Status 1 GASTROINTESTINAL HEMORRHAGE, UNSPECIFIED 07/04/[address] active 2 ACUTE POSTHEMORRHAGIC ANEMIA 07/03/[address] active 3 PRESENCE OF OTHER VASCULAR IMPLANTS AND GRAFTS 07/03/[address] active 4 URINARY TRACT INFECTION, SITE NOT SPECIFIED 07/03/[address] active 5 ANXIETY DISORDER, UNSPECIFIED 06/16/[address] active 6 CHRONIC OBSTRUCTIVE PULMONARY DISEASE, UNSPECIFIED 06/16/[address] active 7 EPILEPSY, UNSPECIFIED, NOT INTRACTABLE, WITHOUT STATUS EPILEPTICUS 06/16/[address] active 8 ESSENTIAL (PRIMARY) HYPERTENSION 06/16/[address] active 9 OTHER RECURRENT DEPRESSIVE DISORDERS 06/16/[address] active 10 PERSONAL HISTORY OF TRANSIENT ISCHEMIC ATTACK (TIA), AND CEREBRAL INFARCTION WITHOUT RESIDUAL DEFICITS 06/16/[address] active 11 PRESENCE OF LEFT ARTIFICIAL HIP JOINT 06/16/[address] active 12 SYSTEMIC INFLAMMATORY RESPONSE SYNDROME (SIRS) OF NON-INFECTIOUS ORIGIN WITHOUT ACUTE ORGAN DYSFUNCTION 06/16/20 19 07/03/[id number] completed 13 UNILATERAL PRIMARY OSTEOARTHRITIS, LEFT HIP 06/16/[address] active 14 UNSPECIFIED INTRACAPSULAR FRACTURE OF LEFT FEMUR, SUBSEQUENT ENCOUNTER FOR CLOSED FRACTURE WITH ROUTINE HEALING 06/16/[address] active Reason for Referral No Reasons for Referral Entered Social History Social History Observation Description Start Date End Date Code Code System Current Smoking Status Tobacco smoking consumption unknown 203786906 SNOMED CT Sex Assigned At Male 1960 32775-3 [facility] Gender Identity Vital Signs Code Code System Vitals Name Values and Units Timing Information 9279-1 [facility] Respiratory Rate Value=20.0 Units=/m in 07/06/2019 8462-4 LOINC Blood Pressure-Diastolic Value=60 Un its=mmHg 07/06/2019 8480-6 LOINC Blood Pressure-Systolic Bviku=501 Un its=mmHg 07/06/2019 8310-5 LOINC Body Temperature Value=99.3 Units= F 07/06/2019 8867-4 LOINC Heart rate Value=64.0 Units=/min 55986-9 LOINC Pain Level Value=0.0 07/06/2019 16148-1 [facility] O2 % BldC Oximetry Value=94.0 Units= % 07/04/2019 60424-8 LOINC Weight Qqlvr=276.0 Units=Lbs 8302-2 LOINC Height Value=76.0 Units=Inches 06/16/2019
--- NOTE | 2025-02-13 10:15 | CT_ITS ---
FINAL REPORT TECHNIQUE: Thin section axial images were obtained through the abdomen after contrast injection per CT angiogram protocol. Multiplanar reconstruction images were obtained from the axial data. This exam was performed with techniques to keep radiation dose as low as reasonably achievable. This includes automated exposure control, adjustment of the MA and KVP, and iterative reconstruction technique. CLINICAL HISTORY: aneurysmal dilatation infrarenal abdominal aorta FINDINGS: CTA: There is an infrarenal abdominal aortic aneurysm measuring 3 cm. There is no evidence of dissection. The celiac axis, superior mesenteric artery, and inferior mesenteric artery are patent without stenosis. The renal arteries are patent. The common iliac arteries and visualized portions of the internal and external iliac arteries are patent. No significant stenosis. NONVASCULAR: There is emphysema at the lung bases. Gallstones are seen in the gallbladder. Evaluation of the solid abdominal organs and GI tract is limited by motion. There is a small exophytic right renal lesion, which is not a simple cyst, measuring 12 mm. Solid lesion is not excluded. There is no hydronephrosis. The GI tract is without acute abnormality. No lymphadenopathy or free fluid. No acute osseous abnormality. IMPRESSION: 3 cm abdominal aortic aneurysm. 12 mm right renal lesion, not a simple cyst. Recommend CT renal mass protocol in the nonemergent setting. Reviewed, Interpreted and Dictated by Zina Bingham MD Transcribed by Dayana Rider Authenticated and [facility]
[2025-02-13 10:24] LABS: Blood Urea Nitrogen 20 mg/dl (9-20); Creatinine,Serum 1.10 mg/dl (0.66-1.25); Estimated Glomerular Filt Rate 67 ml/min (>60); GFR (African American) 82 ML/MIN (>60)
[2025-02-13] MEDS: 0.9 % SODIUM CHLORIDE 50 ML VIAL IV (11:13)
[2025-02-13] MEDS: IOPAMIDOL-370 (76%);100ML BOTTLE 80 ML IV (11:13)
[2025-02-13] MEDS: SODIUM CHLORIDE 0.9% 10ML SYR (RAD ONLY) 10 ML IV (11:13)
== END 2025-02-13 23:59 | disposition home or self-care (01) ==
LOC: RAD 09:46
PROVIDERS: PCP Nurse Practitioner Family; Visit Provider Physician Assistant
DX: I71.40 Abdominal aortic aneurysm, without rupture, unspecified (principal); N28.89 Other specified disorders of kidney and ureter; I25.10 Atherosclerotic heart disease of native coronary artery without angina pectoris; R93.1 Abnormal findings on diagnostic imaging of heart and coronary circulation; I10 Essential (primary) hypertension
CPT/HCPCS: 36415; 74175; 82565; 84520; Q9967

== ENCOUNTER 2025-03-01 09:28 | Outpatient (CLI) | payer MEDICARE, MEDICAID, SELFPAY ==
--- OUTSIDE RECORDS SUMMARY | 2025-03-01 09:44 | XMS_ITS | Encounter Summary ---
Author Organization [employer] ([place], [place], [place], [place]) Address [address] [place] [address] Care Team Providers Care Matrix Worker Name Role Phone Bhavana Zuñiga Primary Care Provider [phone] Reason for Visit * Reason Comments Medication Refill Encounter Details Date Type Department Care Team (Late st Contact Info) Description 12/13/2023 Refill [facility] Neurology [address] [place] [address] Amena Nice MD [address] [facility] [address] [place], [place] [id number] Localization-related (focal) (partial) symptomatic epilepsy and epileptic syndromes with complex partial seizures, intractable, without status epilepticus (HCC) Social History Tobacco Use Types Packs/Day Years Used Date Smoking Tobacco: Every Day Cigarettes Smokeless Tobacco: Never Alcohol Use Standard Drinks/Week Comments Yes 0 (1 standard drink = 0.6 oz pur e alcohol) Food Insecurity Answer Date Recorded Food run out past 12 months Not on file 06/21 Food did not last past 12 months Not on file 07/02/2023 Employment Answer Date Recorded Help finding and keeping a job Not on file 0 07/02/2023 Family and Community Support Answer Gabe e Recorded Help with Day to Day Activities Not on file 07/02/2023 Feeling Lonely or Isolated Not on file 07/02 Educational Attainment Answer Date Zaid rded Speak language other than Grenadian at home Not on file 07/02/2023 Want help with school or training Not on file 07/02/2023 Substance Use Answer Date Recorded Used prescription meds for non-medical reasons N ot on file 07/02/2023 Used illegal drugs past 12 months Not on file 07/02/2023 Sex and Gender Information Value Date Recorded Sex Assigned at Not on file Legal Sex Male 1:09 PM CDT Gender Identity Not on file Sexual Orientation Not on file documented as of this encounter Plan of Treatment Upcoming Encounters Date Type Department Care Team (Late st Contact Info) Description 05/22/2025 2:45 PM EST Office Visit [facility] Neurology [address] [place] [address] Amena Nice MD [address] [facility] [address] [place] [address] documented as of this encounter Visit Diagnoses Diagnosis Localization-related (focal) (partial) symptomatic epilepsy and epileptic syndromes with complex partial seizures, intractable, without status epilepticus (HCC) documented in this encounter Care Teams Matrix Worker Relationship Specialty Start Date End Date Bhavana Zuñiga [address] [place] [address] PCP - General 12/01/24 documented as of this encounter
--- OUTSIDE RECORDS SUMMARY | 2025-03-01 09:44 | XMS_ITS | Clinical Summary ---
Author Organization [employer] ([place], [place], [place], [place]) Address [address] [place] [address] Care Team Providers Care Boat Engines Installer Name Role Phone Bhavana Zuñiga Primary Care Provider [phone] Allergies Active Allergy Reactions Criticality Noted Date Comments Penicillins 12/07/2022 Medications amLODIPine (NORVASC) 10 MG tablet Take 1 tablet (10 mg total) by mouth daily. 11/13/2022 Active atorvastatin (LIPITOR) 40 MG tablet Take 1 tablet (40 mg total) by mouth nightly. 11/13/2022 Active Symbicort 160-4.5 mcg/actuation inhaler 2 puffs 2 (two) times daily. 10/21/2022 Active busPIRone (BUSPAR) 10 MG tablet Take 1 tablet (10 mg total) by mouth 3 (three) times daily. 11/13/2022 Active famotidine (PEPCID) 20 MG tablet Take 1 tablet (20 mg total) by mouth nightly. 10/21/2022 Active Spiriva with HandiHaler 18 mcg inhalation capsule 1 capsule (18 mcg total) daily. 10/21/2022 Active traZODone (DESYREL) 50 MG tablet Take 1 tablet (50 mg total) by mouth nightly. 10/21/2022 Active ascorbic acid, vitamin C, (vitamin C) 250 MG tablet Take 1 tablet (250 mg total) by mouth. Active aspirin 81 MG EC tablet Take 1 tablet (81 mg total) by mouth. Active hydroCHLOROthiaz chandni (HYDRODIURIL) 25 MG tablet Take 1 tablet (25 mg total) by mouth. Active albuterol HFA (VENTOLIN HFA) 90 mcg/actuation inhaler 2 puffs every 4 (four) hours as needed. 11/11/2023 Active Trelegy Ellipta 100-62.5-25 mcg DsDv Take 1 puff by mouth daily. 11/11/2023 Active levETIRAcetam (KEPPRA) 500 MG tablet Take 1 tablet (500 mg total) by mouth 2 (two) times daily. 60 tablet 11 12/07/2023 Active lacosamide (VIMPAT) 200 mg tab Take 1 tablet (200 mg total) by mouth 2 (two) times daily. 60 tablet 5 12/08/2024 Active lacosamide (VIMPAT) 50 mg tab tabletIndication s:Localization-r elated (focal) (partial) symptomatic epilepsy and epileptic syndromes with complex partial seizures, intractable, without status epilepticus (HCC) Take 1 tablet (50 mg total) by mouth 2 (two) times daily. 60 tablet 5 12/08/2024 Active Active Problems Problem Noted Date Diagnosed Date Acute gastrointestinal bleeding 12/07/2023 12/07/2023 Generalized weakness 12/07/2023 12/07/2023 Hip fracture 12/07/2023 12/07/2023 Hyperlipidemia 12/07/2023 12/07/2023 H/O: CVA (cerebrovascular accident) 12/07/2023 12/07/2023 SIRS (systemic inflammatory response syndrome) 0 12/07/2023 12/07/2023 Symptomatic anemia 12/07/2023 12/07/2023 Tobacco dependence syndrome 12/07/202311/19 Epilepsy 12/07/2023 12/07/2023 Rectal polyp 01/20/2023 12/07/2023 Chronic obstructive lung disease 12/07/2022 Gastroesophageal reflux disease 12/07/2022 Hypertensive disorder 12/07/2022 Rectal mass 11/17/2022 Insomnia 07/23/2022 Generalized anxiety disorder 01/19/2022 Focal epilepsy with impairment of consciousness 09/26/2020 Gastrointestinal hemorrhage, unspecified 020 12/07/2023 Anemia associated with acute blood loss 07/03/1912/07/2023 Presence of other vascular implants and grafts 0 07/03/2019 12/07/2023 Urinary tract infection, site not specified 06/2112/07/2023 History of total left hip arthroplasty 9 12/07/2023 Other recurrent depressive disorders 06/16/2019 12/07/2023 Personal history of transien t ischemic attack (TIA), and cerebral infarction without residual deficits 06/16/2019 12/07/19 Unilateral primary osteoarthritis, left hip 05/2212/07/2023 Unspecified intracapsular fr acture of left femur, subsequent encounter for closed fracture with routine healing 06/16/2019 12/07/2023 COPD (chronic obstructive pulmonary disease) 12/07/2023 Anxiety 06/16/2019 12/07/2023 Hypertension 06/16/2019 12/07/2023 Epilepsy, unspecified, not i ntractable, without status epilepticus 06/16/2019 12/07/2023 Feeding difficulty 01/13/2016 PARKER (acute kidney injury) 01/07/2016 Acute right MCA stroke 01/07/2016 Alcohol abuse 01/07/2016 Seizure disorder 01/07/2016 Thrombocytopenia 01/07/2016 Tobacco abuse 01/07/2016 Cerebrovascular accident 01/04/2015 Complications affecting othe r specified body systems, hypertension 10/08/2010 Other and unspecified alcoho l dependence, unspecified drinking behavior 10/08/2010 Other specified abnormal findings of blood chemi stry 08/31/2008 Demyelinating disease of central nervous system 08/01/2008 Overview (12/07/2022): ICD-10 Transition Encounter for long-term (current) use of other m edications 08/01/2008 Cocaine abuse in remission 01/11/2008 Overview (12/07/2022): ICD-10 Transition Other and unspecified antico nvulsants causing adverse effect in therapeutic use 01/11/2008 Unspecified adverse effect o f unspecified drug, medicinal and biological substance 01/11/2008 Partial epilepsy with impair ment of consciousness, intractable 01/11/2008 Overview (12/07/2022): ICD-10 Transition Encounters Date Type Department Care Team Description 12/08/2024 [facility] Neurology [address] [place] [address] Fredi Haddad, RN Localization-related (focal) (partial) symptomatic epilepsy and epileptic syndromes with complex partial seizures, intractable, without status epilepticus (HCC) 12/07/2024 [facility] Neurology [address] [place] [address] Amena Nice MD Localization-related (focal) (partial) symptomatic epilepsy and epileptic syndromes with complex partial seizures, intractable, without status epilepticus (HCC) from Last 3 Months Immunizations Immunization Administration Dates Next Due Covid-19 Vaccine 18yr+ (Sage)([id number]) 021 Covid-19 Vaccine MRNA (PF) 18yr+ (Moderna)([id number] 0) 04/24/2021 Hepatitis A Adult 02/07/2019 Influenza High Dose Preservative Free IM ([id number] ) 03/20/2019 Influenza Quad-qiv Non Pf 04/21/2022 Influenza Three-TIV Non-PF 4+YRS IM 04/21/2022 Tst Nos 07/03/2019,06/16/2019 Family History Medical History Relation Name Comments Cancer Other Heart disease Other Relation Name Status Comments Other Social History Tobacco Use Types Packs/Day Years Used Date Smoking Tobacco: Every Day Cigarettes Smokeless Tobacco: Never Tobacco Cessation:Ready to Q uit: Not Asked; Counseling Given: Not Answered Alcohol Use Standard Drinks/Week Comments Yes 0 [...] Date Zaid rded Speak language other than [place] Sudanese at home Not on file 07/02/2023 Want [...] Sign Reading Time Taken Comments Blood Pressure 119/65 12/07/2023 1:38 PM EDT Pulse 72 12/07/2023 1:38 PM EDT Temperature - - Respiratory Rate - - Oxygen Saturation - - Inhaled Oxygen Concentration - - Weight 81.2 kg (179 lb) 12/07/2023 1:38 PM EDT Height 193 cm (6' 4 ) 12/07/2023 1:38 PM EDT Body Mass Index 21.79 12/07/2023 1:38 PM EDT Plan of Treatment Upcoming Encounters Date Type Department Care Team (Late st Contact Info) Description 05/22/2025 2:45 PM EST Office Visit [facility] Neurology [address] [facility] [address] [place] [address] Amena Nice MD [address] [facility] [address] [place] [address] Health Maintenance Due Date Last Done Comments CT Colonography 1960 FOBT/FIT 1960 Fit-DNA (Cologuard) 1960 Sigmoidoscopy 1960 HIV Screening 12/01/1975 Hepatitis C Screening 1978 DTAP/TDAP/TD VACCINES (1 - Tdap) 12/01/1979 Pneumococcal 50+ years (1 of 2 - PCV) 12/01/1979 Lipid Panel 01/07/2019 01/08/2016 Respiratory Syncytial Virus (RSV) Adult or (1 - Risk 60-74 years 1-dose series) 2020 Medicare Initial AWV [id number] 06/22/2023 Shingles Vaccine (Zoster) (2 of 2) 10/11/20232023 Tobacco Cessation Counseling and Screening (12+) 12/06/2024 12/07/2023 COVID-19 VACCINE ( season) 02/19/202509/2020, 08/28/2020 Influenza Vaccine (#1) 2025 04/21/2022, 2018 Colonoscopy 08/29/2033 08/30/2023 Colorectal Cancer Screening 08/29/2033 Insurance [facility] MEDICARE HMO MEDICAID B Care Teams Boat Engines Installer Relationship Specialty Start Date End Date Bhavana Zuñiga [address] [place] [address] PCP - General 12/01/24
--- OUTSIDE RECORDS SUMMARY | 2025-03-01 09:44 | XMS_ITS | Clinical Summary ---
[facility] Address [address] [place] [address] Care Team Providers Care Bicycle I Assembler Name Role Phone Kirill Shepherd MD Primary Care Provider [phone] Allergies No known active allergies Medications aspirin [...] SCREENING 09/22/2016 COVID-19 Vaccine (2 - season) 02/19/202503/2021 INFLUENZA VACCINE 03/21/2025 COLONOSCOPY 08/29/2033 08/30/2023, 06/24/2019 COLORECTAL CANCER SCREENING 08/29/2033 Medical Devices Implanted Type Area Digital Forensics Investigator Device Identifier Shelf Expiration Date Model / Serial / Lot Stent Wingspan Sys 3.5x15mm - [id number] Implanted:Qty: 1 on 01/07/2016 by Orlando Deng MD at [facility] Implant JASON ISAAK 05/20/2018 [id number] / / [id number] Description:right [facility] Insurance [id number] MEDICARE ADVANT[facility] Care Teams Bicycle I Assembler Relationship Specialty Start Date End Date Kirill Shepherd MD PCP - General Emergency Medicine 05/17/19
--- OUTSIDE RECORDS SUMMARY | 2025-03-01 09:44 | XMS_ITS | Referral Summary ---
Author Organization [employer] ([place], [place], [place], [place]) Address [address] [place] [address] Care Team Providers Care Ecological Modeler Name Role Phone Bhavana Zuñiga Primary Care Provider [phone] Encounters Date Type Department Care Team Description 12/08/2024 Refill [facility] Neurology [address] [place] [address] Fredi Haddad RN Localization-related (focal) (partial) symptomatic epilepsy and epileptic syndromes with complex partial seizures, intractable, without status epilepticus (HCC) 12/07/2024 Refill [facility] Neurology [address] [place] [address] Amena Nice MD Localization-related (focal) (partial) symptomatic epilepsy and epileptic syndromes with complex partial seizures, intractable, without status epilepticus (HCC) from Last 3 Months Allergies Active Allergy Reactions Criticality Noted Date [...] consciousness, intractable 01/11/2008 Overview (12/07/2022): ICD-10 Transition Immunizations Immunization Administration Dates Next Due Covid-19 Vaccine 18yr+ (Sage)(AQN877) 021 Covid-19 Vaccine MRNA (PF) 18yr+ (Moderna)(IMM60 0) 04/24/2021 Hepatitis A Adult 02/07/2019 Influenza High Dose Preservative Free IM ([id number] ) 03/20/2019 Influenza Quad-qiv Non Pf 04/21/2022 Influenza Three-TIV Non-PF 4+YRS IM 04/21/2022 Tst Nos 07/03/2019,06/16/2019 Social History Tobacco Use Types Packs/Day Years [...] Date Zaid rded Speak language other than Iraqi at home Not on file 07/02/2023 Want [...] Description 05/22/2025 2:45 PM EST Office Visit [facility] Neurology [address] [facility] [address] [place] [address] Amena Nice MD [address] [facility] [address] [place] [address] Insurance [facility] MEDICARE HMO MEDICAID QMB Care Teams Ecological Modeler Relationship Specialty Start Date End Date Bhavana Zuñiga [place] [address] [place] [address] PCP - General 12/01/24
--- OUTSIDE RECORDS SUMMARY | 2025-03-01 09:44 | XMS_ITS | Clinical Summary ---
Author Organization [facility] Address [address] [place] [address] Care Team Providers Care Chute Builder Name Role Phone Kirill Shepherd MD Primary Care Provider [phone] Tino Smith MD Unavailable [phone] Allergies Active Allergy Reactions Criticality Noted [...] drink first t andrea in the morning (EYE-CHIN STRAP CUTTER) to steady your nerves or to get [...] [facility]-Zoster Vaccines (2 of 2) 10/11/2023 08/16/2023 Colonoscopy 08/29/2024 08/30/2023, 06/24/2019 [facility]-Colorectal Cancer Screening 08/29/2024 CQS-[id number]-[id number] Vaccine (3 - 2024- season) 2025 04/24/2021, 08/28/2020 [facility]-Influenza Vaccine (#1) 02/19/202504/23, 04/21/2022 [facility]-Hepatitis A [...] Jon S, MD Proceduralist Yanely Lorenzana Endo Scoreboard Operator Justine Arellano MD Anesthesiologist Carloz Gonzalez Endo [...] of bowel preparation was evaluated using the Porter Bowel Preparation Scale with scores of: right [...] MD GI PROCEDURE ORDERABLES Final Result * [place] Hepatitis C Antibody (06/24/2019 3:37 AM EST) [place] Hepatitis C Ab NEGATIVE Reference Range: Negative SUNQUEST 06/24/2019 3:37 AM EST 06/24/2019 3:56 AM EST Jacob Centeno MD LAB BLOOD ORDERABLES Final Resu lt SUNQUEST from Last 3 Months or Most Recently Relevant to Health Maintenance Additional Health Concerns Infection Onset Date Last Indicated 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 Yes Care Teams Chute Builder Relationship Specialty Start Date End Date Kirill Shepherd MD [address] [place] [address] PCP - General 11/01/20 Tino Smith MD [address] [facility] [address] [place] [address] Surgeon Colon and Rectal Surgery 09/07/23
--- OUTSIDE RECORDS SUMMARY | 2025-03-01 09:44 | XMS_ITS ---
Author Organization [facility] Care Team Providers Care Ip Counsel Name Role Phone Bhavana Zuñiga Unavailable Unavailable Kirill Garcia Michael Unavailable Unavailable Rosenda Klein Unavailable Unavailable Allergies and adverse reactions No Known Allergies Care Team Name Role Address Phone Organization Dates Kirill Shepherd PCP [address] [place] [address], [address], [facility] (Office): : [facility] 07/03/2019 - 07/06/2019 Bhavana Zuñiga [address], [address], [facility] (Office): : [facility] 07/03/2019 - 07/06/2019 Kirill Garcia [address] [place] [address], [address], [facility] (Office): : [facility] 07/03/2019 - 07/06/2019 Rosenda Klein [address] [place] [address], [address], [facility] (Office): : [facility] 07/03/2019 - 07/06/2019 Goals [...] ed date: 03/21/2019 Per resident received at [facility] TB 1 Step Mantoux (PPD) completed tuberculin skin test; unspecified formulation Given 0.1 ml Right Forearm subcutaneously 98 CVX created date: 07/03/2019 consent date: 07/03/2019 administer ed date: 07/03/2019 TB 1 Step Mantoux (PPD) completed tuberculin skin test; unspecified formulation lotNumber: [id number] expiry: 09/12/2021 Mfg: tubersol 0.1 ml Given [...] 07/06/2019 CAM 0 No delirium ind icated Plan of Treatment Section Interventions Intervention Code Code System Display Name Proposed D ate Problems Problem # Description Date of onset Resolved Date Code CodeSystem Concern Status 1 GASTROINTESTINAL HEMORRHAGE, UNSPECIFIED 07/04/[address] active 2 ACUTE POSTHEMORRHAGIC ANEMIA 07/03/[address] active 3 PRESENCE OF OTHER VASCULAR IMPLANTS AND GRAFTS 07/03/[address] active 4 URINARY TRACT INFECTION, SITE NOT SPECIFIED 07/03/[address] active 5 ANXIETY DISORDER, UNSPECIFIED 06/16/[address] active 6 CHRONIC OBSTRUCTIVE PULMONARY DISEASE, UNSPECIFIED 06/16/[address] active 7 EPILEPSY, UNSPECIFIED, NOT INTRACTABLE, WITHOUT STATUS EPILEPTICUS 06/16/[address] active 8 ESSENTIAL (PRIMARY) HYPERTENSION 06/16/[address] active 9 OTHER RECURRENT DEPRESSIVE DISORDERS 06/16/[address] active 10 PERSONAL HISTORY OF TRANSIENT ISCHEMIC ATTACK (TIA), AND CEREBRAL INFARCTION WITHOUT RESIDUAL DEFICITS 06/16/[address] active 11 PRESENCE OF LEFT ARTIFICIAL HIP JOINT 06/16/[address] active 12 SYSTEMIC INFLAMMATORY RESPONSE SYNDROME (SIRS) OF NON-INFECTIOUS ORIGIN WITHOUT ACUTE ORGAN DYSFUNCTION 06/16/20 19 07/03/[address] completed 13 UNILATERAL PRIMARY OSTEOARTHRITIS, LEFT HIP 06/16/[address] active 14 UNSPECIFIED INTRACAPSULAR FRACTURE OF LEFT FEMUR, SUBSEQUENT ENCOUNTER FOR CLOSED FRACTURE WITH ROUTINE HEALING 06/16/[address] active Reason for Referral No Reasons for Referral Entered Social History Social History Observation Description Start Date End Date Code Code System Current Smoking Status Tobacco smoking consumption unknown 934710713 SNOMED CT Sex Assigned At Male 1960 73749-6 [facility] Gender Identity Sexual Orientation Vital Signs Code Code System Vitals Name Values and Units Timing Information 9279-1 LOINC Respiratory Rate Value=20.0 Units=/m in 07/06/2019 8462-4 LOINC Blood Pressure-Diastolic Value=60 Un its=mmHg 07/06/2019 8480-6 LOINC Blood Pressure-Systolic Arhbh=335 Un its=mmHg 07/06/2019 8310-5 [facility] Body Temperature Value=99.3 Units= F 07/06/2019 8867-4 [facility] Heart rate Value=64.0 Units=/min 36830-0 [facility] Pain Level Value=0.0 07/06/2019 49429-9 [facility] O2 % BldC Oximetry Value=94.0 Units= % 07/04/2019 92292-7 [facility] Weight Jpxhd=174.0 Units=Lbs 8302-2 [facility] Height Value=76.0 Units=Inches 06/16/2019
--- OUTSIDE RECORDS SUMMARY | 2025-03-01 09:44 | XMS_ITS | Clinical Summary ---
Author Organization [facility] Address [address] [facility] [place] [address] Phone Care Team Providers Care Minister Assistant Name Role Phone Terrance Small MD Unavailable [phone] Social History Tobacco Use Types Packs/Day Years [...] Zoster (1 of 2) 2010 COVID-19 Vaccine ( - 2023-2 5 season) 2025 Influenza Vaccine (#1) 2025 Hepatitis B Vaccine Aged Out No longe r eligible based on patient's age to complete this topic Meningococcal B Vaccine Aged Out No l onger eligible based on patient's age to complete this topic Insurance [facility] [id number] MDR Care Teams Minister Assistant Relationship Specialty Start Date End Date Terrance Small MD PCP - Hematology/Oncology Internal Medicine 01/02/16
--- OUTSIDE RECORDS SUMMARY | 2025-03-01 09:44 | XMS_ITS | Clinical Summary ---
Author Organization [facility] Address [address], [address] [place] [address] Care Team Providers Care Eyelet Maker Name Role Phone Alyssa Malave APRN, NP Primary Care Provider [phone] Social History Tobacco Use Types Packs/Day Years Used Date Smoking Tobacco: Never Assessed Sex and Gender Information Value Date Recorded Sex Assigned at Not on file Legal Sex Male 1:37 PM EDT Gender Identity Not on file Sexual Orientation Not on file Plan of Treatment Not on file Insurance [employer] MEDICAID Care Teams Eyelet Maker Relationship Specialty Start Date End Date Alyssa Malave APRN - NP [address] [place] [address] [address] [place] [address] PCP - General Family Medicine 01/17/16
--- OUTSIDE RECORDS SUMMARY | 2025-03-01 09:44 | XMS_ITS | Encounter Summary ---
Author Organization [employer] ([place], [place], [place], [place]) Address [address] [place] [address] Care Team Providers Care Header Boss Name Role Phone Bhavana Zuñiga Primary Care Provider [phone] Reason for Visit * Reason Comments Medication Refill Encounter Details Date Type Department Care Team (Late st Contact Info) Description 10/13/2022 Refill [facility] Neurology [address] [place] [address] Amena Nice MD [address] [place] [address] [address] [place] [address] Social History Tobacco Use Types Packs/Day Years [...] Description 05/22/2025 2:45 PM EST Office Visit [facility] Neurology [address] [place] [phone] Amena Nice MD [address] [place] [address] [address] [place] [address] documented as of this encounter Visit Diagnoses Not on filedocumented in this encounter Care Teams Header Boss Relationship Specialty Start Date End Date Bhavana Zuñiga [address] [place] [address] PCP - General 12/01/24 documented as of this encounter
--- OUTSIDE RECORDS SUMMARY | 2025-03-01 09:44 | XMS_ITS | Encounter Summary ---
Author Organization Healthcare Address [address] [place] [address] Care Team Providers Care Marine Electrician Apprentice Name Role Phone Kirill Shepherd MD Primary Care Provider [phone] Tino Smith MD Unavailable [phone] Encounter Details Date Type Department Care Team (Late st Contact Info) Description 11/02/2022 Lab Requisition [facility] [address] [place] [address] Tino Smith MD [address] [facility] [address] [place] [id number] Neoplasm of uncertain behavior of rectum Social [...] EDT) Case Report [facility] Pathology Consult Case: [id number] Authorizing Provider: Tino Smith MD Collected: 11/02/2022 1046 Ordering Location: [facility] Received: 11/02/2022 1101 Pathologist: Maddi Cobb MD Specimen: Rectal, [id number] 11/03/2022 10:21 AM EDT [facility] Final Diagnosis LARGE INTESTINE, DESCENDING COLON, BIOPSY ([id number]; 10/16/2022): - TUBULAR ADENOMA. LARGE INTESTINE, SIGMOID COLON, BIOPSY ([id number]; 10/16/2022): - TUBULAR ADENOMA. RECTUM, MASS, BIOPSY ([id number] C; 10/16/2022): - FRAGMENTS OF TRADITIONAL SERRATED ADENOMA (SEE COMMENT). 11/03/2022 10:21 AM EDT [facility] at 1021 EDT Comment The rectal mass biopsy shows multiple fragments of traditional serrated adenoma. There is no evidence of high-grade dysplasia or carcinoma on the submitted biopsy. The findings may not be the packaging sales representative of the entire mass described and further clinical correlation is recommended. 11/03/2022 10:21 AM EDT [facility] Clinical Information D37.5 - Neoplasm of uncertain behavior of rectum [ICD-10-CM] 11/03/2022 10:21 AM EDT [facility] Gross Description A. [id number] Received along with a corresponding pathology report from [facility] are 6 slide(s) labeled outside case: [id number] collected on 10/16/2022. 11/03/2022 10:21 AM EDT [facility] Note: A resident was involved in the service. I attest I examined the relevant preparations for the specimens and confirmed the diagnosis or interpretation. 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
--- OUTSIDE RECORDS SUMMARY | 2025-03-01 09:44 | XMS_ITS | Clinical Summary ---
Author Organization Health Address [facility] [place] [address] Care Team Providers Care Forensic Analyst Name Role Phone Unavailable Primary Care Provider [...] therelease of HIV test results or diagnoses. [id number] Active Problems Problem Noted Date Diagnosed [...]
--- NOTE | 2025-03-01 09:45 | CT_ITS ---
FINAL REPORT TECHNIQUE: Pre-and postcontrast axial imaging of the abdomen and pelvis was obtained.This study was performed with techniques to keep radiation doses as low as reasonably achievable, (ALARA). Individualized dose reduction technique using automated exposure control or adjustment of mA and/or kV according to the patient's size were employed. CLINICAL HISTORY: Renal Mass protocol COMPARISON: 02/13/2025 FINDINGS: Changes of emphysema are present in the lung bases, with atelectasis and scarring present in the lingula. The liver is homogeneous. Gallstones are present in the gallbladder. The spleen, adrenal glands, and pancreas are unremarkable. There is a small partially exophytic 12 mm lesion in the right kidney. This mass measures 72 Hounsfield units both pre and postcontrast, indicating no enhancement. The findings are consistent with a proteinaceous or hemorrhagic cyst. On precontrast imaging, bilateral renal stones are noted without evidence of hydronephrosis. No small bowel obstruction is identified. There is no lymphadenopathy or ascites. A 3 cm abdominal aortic aneurysm is stable. Sigmoid diverticulosis is present without evidence of diverticulitis. Otherwise, the pelvic organs and pelvic portions of the GI tract, including the appendix, are within normal limits. There is no lymphadenopathy or ascites. The prostate is enlarged, with mild bladder wall thickening that may be secondary to mild chronic outlet obstruction or cystitis. No acute osseous abnormalities identified. IMPRESSION: 1. Small partially exophytic 12 mm lesion of the right kidney which does not enhance after contrast administration is consistent in appearance with a proteinaceous or hemorrhagic cyst. 2. No acute findings are present in the abdomen or pelvis. 3. Additional chronic findings are noted which were described on the prior CT of 02/13/2025. Reviewed, Interpreted and Dictated by Zina Bingham MD Transcribed by Aimee Herrera [facility]henticated and [facility]
[2025-03-01] MEDS: IOPAMIDOL-370 (76%);100ML BOTTLE 75 ML IV (10:09)
[2025-03-01] MEDS: SODIUM CHLORIDE 0.9% 10ML SYR (RAD ONLY) 10 ML IV (10:09)
== END 2025-03-01 23:59 | disposition home or self-care (01) ==
LOC: RAD 09:29
PROVIDERS: PCP Nurse Practitioner Family; Visit Provider Physician Assistant
DX: C20 Malignant neoplasm of rectum (principal); N28.89 Other specified disorders of kidney and ureter; N20.0 Calculus of kidney; I71.40 Abdominal aortic aneurysm, without rupture, unspecified; K57.30 Diverticulosis of large intestine without perforation or abscess without bleeding; N40.0 Benign prostatic hyperplasia without lower urinary tract symptoms; N32.89 Other specified disorders of bladder; I25.10 Atherosclerotic heart disease of native coronary artery without angina pectoris; R93.1 Abnormal findings on diagnostic imaging of heart and coronary circulation; I10 Essential (primary) hypertension; E78.5 Hyperlipidemia, unspecified
CPT/HCPCS: 74178; Q9967